=== PATIENT | male | born 1960 | race Caucasian/White ===

== ENCOUNTER 2017-07-05 08:50 | Emergency (ER) | payer BC, SELFPAY ==
[2017-07-05 08:52] VITALS: BP 130/74; PULSE 75; RESP 26; TEMP 37.3; O2SAT 93; BMI 25.8
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
[2017-07-05 10:20] VITALS: BP 128/84; PULSE 75; RESP 18; TEMP 36.9; O2SAT 96
== END 2017-07-05 10:29 | disposition home or self-care (01) ==
PROVIDERS: Emergency Provider Emergency Medicine; Family Provider Internal Medicine
DX: J01.00 Acute maxillary sinusitis, unspecified (principal); F17.210 Nicotine dependence, cigarettes, uncomplicated
CPT/HCPCS: 87275; 87276; 99282

== ENCOUNTER → 2017-08-17 10:08 | Outpatient (CLI) | payer BC, SELFPAY ==
[2017-08-17 10:45] LABS: Basophils # 0.1 K/mm3 (0-0.2); Basophils % 0.6 % (0.1-2.0); Eosinophils # 0.5 K/mm3 (0.0-0.4); Eosinophils % 4.4 % (0.1-12.0); Hematocrit 45.4 % (42.0-52.0); Hemoglobin 15.1 g/dL (14.1-18.0); Lymphocytes # 4.1 K/mm3 (0.7-4.5); Lymphocytes % 33.3 K/mm3 (10-50); Mean Corpuscular HGB Conc 33.4 g/dL (31.8-35.4); Mean Corpuscular Hemoglobin 30.9 pg (27.0-31.2); Mean Corpuscular Volume 92.5 fl (80-94); Mean Platelet Volume 8.1 fl (7.4-10.4); Monocytes # 0.5 K/mm3 (0.1-1.0); Monocytes % 4.4 % (1.7-9.3); Neutrophils % 57.2 % (37.0-80.0); Platelet Count 373 K/mm3 (142-424); White Blood Count 12.3 K/mm3 (4.8-10.8)
[2017-08-17 11:49] LABS: Alanine Aminotransferase 50 U/L (12-78); Albumin Level 3.7 gm/dL (3.4-5.0); Alkaline Phosphatase 99 U/L (46-116); Anion Gap 9.6 mEq/L (5-15); Aspartate Amino Transferase 30 U/L (15-37); Bilirubin,Total 0.2 mg/dL (0.2-1.0); Blood Urea Nitrogen 12 mg/dL (7-18); Carbon Dioxide 31 mmol/L (21.0-32.0); Chloride 104 mmol/L (98-107); Chol/HDL Ratio 5.7 (1-3.5); Cholesterol 206 mg/dL (140-200); Creatinine,Serum 0.82 mg/dL (0.70-1.30); Estimated Glomerular Filt Rate 98 ml/min (>60); GFR (African American) 118 ML/MIN (>60); Globulin 3.7 gm/dl (1.3-3.2); Glucose 110 mg/dL (74-106); HDL Cholesterol 36 mg/dL (27-67); LDL Cholesterol 129 mg/dL (0-130); Potassium 4.6 mmoL/L (3.5-5.1); Sodium 140 mmol/L (136-145); T4 (Thyroxine) 6.6 ug/dl (4.7-13.3); Thyroid Stimulating Hormone 4.01 uIU/ml (0.358-3.740); Total Protein,Serum 7.4 gm/dL (6.4-8.2); Triglycerides 203 mg/dL (30-200); VLDL Cholesterol 41 mg/dL (0-40)
[2017-08-18 08:22] LABS: Hep A Ab, IgM Negative (Negative); Hepatitis B Core Antibody IgM Negative (Negative); Hepatitis B Surface Antigen Negative (Negative)
[2017-08-18 19:07] LABS: HIV Screen 4th Generation wRfx Non Reactive (Non Reactive); Hepatitis C Antibody <0.1 s/co ratio (0.0-0.9); Vitamin D 25 Hydroxy 22.6 ng/mL (30.0-100.0)
== END ==
PROVIDERS: PCP Nurse Practitioner Family; Visit Provider Nurse Practitioner Family
DX: Z76.89 Persons encountering health services in other specified circumstances (principal); R53.83 Other fatigue; R07.9 Chest pain, unspecified
CPT/HCPCS: 36415; 80053; 80061; 80074; 82652; 84436; 84443; 85025; 86703; G0432

== ENCOUNTER → 2017-08-27 12:49 | Outpatient (CLI) | payer BC, SELFPAY ==
--- NOTE | 2017-08-27 12:53 | XR_ITS ---
XR chest 2V HISTORY: ITS.REASON: tobacco use ORDERING PHYSICIAN: Haritha Almazan PATIENT AGE: 56 years COMPARISON: 2 07 18 FINDINGS: The cardiomediastinal silhouette and pulmonary vascularity are within normal limits. There is hyperinflation with hyperlucency of the upper lobes consistent with obstructive chronic bronchitis. There is mild biapical fibrotic change The lungs are clear without infiltrates, suspicious nodules, or pleural effusions. No acute bony abnormalities. IMPRESSION: COPD, no change with no acute finding
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
--- NOTE | 2017-08-27 14:06 | HMH.SLMBS2 ---
Speech & Language Evaluation Speech/Language Mod Barium Swallow Start: 08/27/17 13:42 Freq: once Status: Complete Protocol: Document 08/27/17 13:42 BRIGHT (Rec: 08/27/17 14:06 BRIGHT [id number]) [facility] Recommendations Diet Dietary Recommendations Regular Thin Liquids Treatment/Strategies Treatment Recommendation Compens. Strategy Educat. Strategy/Precaution Recommend Sitting Upright (90 deg) Liquids from Straw Small Bites and Sips Alternate Liquids/Solids Mod Barium Swallow Impressions Summary and Impressions Oral Phase Impression Mild Impairment Oral Phase Summary Patient has difficulty chewing food due to absence of maxilla. Patient compensates well for missing bone structure. Patient was advised to take smaller bites and alternate with liquid wash. Pharyngeal Phase Impression No Impairment (WFL) Pharyngeal Phase Summary No pharyngeal impairments noted. Speech/Language MBS Assessment/Goals/Plan Assessment Date of Evaluation: 08/27/17 Evaluation Type Initial Certification Assessment/Problems Patient reports difficulty drinking soda that began 3-4 years ago but became worse last month after a diagnosis of flu. Does Patient Qualify for Service No Qualify/Failure Comment Patient difficulties are structural at this time. No signs of dysphagia were noted during evaluation. Plan Pt/Guardian verbally ack understanding Yes of dx/prognosis/goals G -code Required No Education Instructions provided Patient was advised to avoid carbonated beverages for 2 weeks to see if improvement is noted. Patient was advised to take small bites and alternate between a bite and sip. Pt/Caregiver able to recall information Able to recall/restate Mod Barium Swallow-Lat View Textures Lateral View Food Presentation Thin Liquid via Cup Thin Liquid via Straw Barium Tablet Regular Food Pudding Mixed Oral Phase Labial Closure No Impairment (WFL)
== END ==
PROVIDERS: PCP Nurse Practitioner Family; Visit Provider Nurse Practitioner Family
DX: E78.5 Hyperlipidemia, unspecified (principal); E03.9 Hypothyroidism, unspecified; J32.9 Chronic sinusitis, unspecified; R07.9 Chest pain, unspecified; E55.9 Vitamin D deficiency, unspecified; R06.00 Dyspnea, unspecified; Z72.0 Tobacco use; R13.10 Dysphagia, unspecified
CPT/HCPCS: 70371; 71046; 92611

== ENCOUNTER → 2017-09-03 06:47 | Outpatient (CLI) | payer BC, SELFPAY ==
--- NOTE | 2017-09-03 06:52 | NM_ITS ---
CARDIOLITE SPECT MYOCARDIAL PERFUSION SCAN, REST AND STRESS: EXERCISE STRESS [facility] REVIEW QGS EF AND WALL MOTION EVALUATION: QPS - PERFUSION EVALUATION HISTORY: Chest pain, Tobacco use DOSE: 10.58 mCi technetium 99m mibi intravenously at rest followed by 31.3 mCi technetium 99m mibi following the intravenous ministration of 0.4 mg of Lexiscan. Resting blood pressure is 131/80. Stress blood pressure 132/82. FINDINGS: Ejection fraction is calculated to be 49%. Uniform myocardial activity with both stress and rest gated images calculated ejection fraction of 49% with normal wall motion IMPRESSION: No scintigraphic evidence of Lexiscan-induced myocardial ischemia. Normal ejection fraction normal wall motion
--- NOTE | 2017-09-03 06:55 | CA_ITS ---
PROCEDURE: 2-D M-mode and color Doppler study INDICATIONS FOR THE TEST: Chest pain X COPD Heart Murmur Tobacco SmokingX Palpitations Fatigue Syncope Edema HypertensionXDiabetes Mellitus Rheumatic Fever SOBXDOE Obesity HyperlipidemiaX Family History HD Additional History PATIENT INFORMATION HEIGHT: 67 WEIGHT:165 GENDER: Male B/P:135/80 2-D/M-MODE INTERPRETATION: 2-D MEASUREMENTS OBSERVED VALUES IN CMS Right Ventricular Dimension (RVDd) 1.6 Interventricular Septum (Thickness)(IVsd) .7 Left Ventricular Internal Dimensions(LVIDd) 5.2 Left Ventricular Posterior Wall (Thickness)(LVPWd) 1.0 Aortic Root 2.9 Aortic Cusp Separation 1.6 Left Atrial Dimensions (LAD) 3.0 2D 1. Left atrium is normal size, left ventricle is normal size, there is mild qualitative concentric left ventricular hypertrophy, visually estimated ejection fraction 50% with no obvious regional wall motion abnormality. 2. The right atrium and right ventricle are mildly enlarged with normal contractility. 3. The aortic valve is minimally thickened and fibrosed. 4. The mitral and tricuspid valve leaflets are minimally thickened. 5. The pulmonic valve is poorly visualized. 6. No significant pericardial effusion noted. DOPPLER INTERROGATION: Doppler interrogation of the aortic, mitral and tricuspid valvular presence of mild mitral and tricuspid regurgitation, tricuspid and jet velocity insufficient for calculation of the right ventricular systolic pressure, diastolic parameters are inconclusive. CONCLUSION: 1. Normal left ventricular size, preserved left ventricular systolic function, visually estimated ejection fraction 50% with no obvious regional wall motion abnormality. Diastolic parameters are inconclusive. 2. Mild mitral and tricuspid regurgitation 3. No significant pericardial effusion noted.
--- NOTE | 2017-09-03 09:18 | HMH.ITSHM ---
FLEXERIL VITAMIN D OMEPRAZOLE
== END ==
PROVIDERS: Family Provider Internal Medicine; PCP Nurse Practitioner Family; Visit Provider Internal Medicine
DX: E78.5 Hyperlipidemia, unspecified (principal); R07.9 Chest pain, unspecified; R06.00 Dyspnea, unspecified; E03.9 Hypothyroidism, unspecified; J32.9 Chronic sinusitis, unspecified; E55.9 Vitamin D deficiency, unspecified; F17.200 Nicotine dependence, unspecified, uncomplicated
CPT/HCPCS: 78452; 93017; 93306; A9502; J2785

== ENCOUNTER → 2017-09-28 11:52 | Outpatient (CLI) | payer BC, SELFPAY | PROVIDERS: PCP Nurse Practitioner Family; Visit Provider Internal Medicine Cardiovascular Disease | DX: R07.9 Chest pain, unspecified (principal); R06.09 Other forms of dyspnea; Z72.0 Tobacco use | CPT/HCPCS: 93225 ==

== ENCOUNTER → 2017-10-12 09:05 | Outpatient (CLI) | payer BC, SELFPAY ==
--- NOTE | 2017-10-12 09:04 | CT_ITS ---
CT chest wo con COMPARISON: None HISTORY: Right-sided chest wall pain, some shortness of breath TECHNIQUE: Multiaxial scans obtained from the thoracic inlet to the hemidiaphragms and were performed without IV contrast. Sagittal and coronal reformats were evaluated as well. FINDINGS: The lung fernando are well expanded. There is apical pleural and parenchymal scarring bilaterally but more prominent right side the left. There are few apical blebs right side. There is a questionable noncalcified nodule right apex versus scarring associated with the blebs. The nodule measures approximately 9 mm in diameter. There are couple normal-sized nodes in the precarinal space of the superior mediastinum and in the AP window. Is a small calcified subcarinal node. There is no pneumonic infiltrate and is no pleural fluid. The soft tissues in the right chest wall appear normal. IMPRESSION: 1. Apical pleural-parenchymal scarring right side greater than left. Possible noncalcified nodule versus post inflammatory scar right apex and suggest patient have a six-month follow-up CT scan chest to evaluate for interval stability 2. Evidence of old granulomatous disease
== END ==
PROVIDERS: Family Provider Internal Medicine; PCP Nurse Practitioner Family; Visit Provider Internal Medicine
DX: R06.00 Dyspnea, unspecified (principal); R07.9 Chest pain, unspecified; F17.200 Nicotine dependence, unspecified, uncomplicated; F10.20 Alcohol dependence, uncomplicated; E78.5 Hyperlipidemia, unspecified; E55.9 Vitamin D deficiency, unspecified; E03.9 Hypothyroidism, unspecified; J32.9 Chronic sinusitis, unspecified
CPT/HCPCS: 71250

== ENCOUNTER → 2017-12-17 14:29 | Outpatient (POV) | payer BC, MEDICAID, SELFPAY ==
[2017-12-17 14:46] VITALS: BP 139/94; PULSE 74; RESP 18; O2SAT 98
--- NOTE | 2017-12-18 09:04 | HMH.PMCON ---
Assessment and Plan (1) Back pain Current visit: Yes Status: Chronic Qualifiers: Chronicity: chronic Back pain laterality: midline Sciatica presence: with sciatica Sciatica laterality: bilateral sciatica Qualified Code(s): M54.41 - Lumbago with sciatica, right side; M54.42 - Lumbago with sciatica, left side; G89.29 - Other chronic pain Category: Medical Code(s): M54.9 - Dorsalgia, unspecified - Assessment and plan all Dx Assessment and Plan for all problems:: We will send the patient for CT scan of his lumbar spine. Patient is unable to have MRIs. Patient does not have any recent lumbar imaging. We will follow-up him after his CT, review it and create a plan of care. This note was dictated using voice recognition software and may contain errors or omissions HPI - Data of Consult Consult date: 12/17/17 Requesting Physician: Genevieve Villagran APRN Primary Care Provider: Haritha Almazan APRN Family Provider: Britton Jones - Consult Narrative Reason for consult: Worsening back pain History of present illness: Mr. Carter is a 57 year old male presents for consultation in regards to his worsening back pain. Patient had a window follow-up him back in 2013. Patient states in getting worse and worse since then. Patient now has numbness and tingling in bilateral feet all the way to his toes. Patient's tried and failed chiropractic therapy along with physical therapy. Patient has had one intramuscular steroid injection that did help at some point however it did not last long. Patient does not have any imaging of his back. Patient is unable to have an MRI. Patient rates his pain 7 out of 10. Patient states all activity except worse while rest and heat decrease the pain. CC: Genevieve Villagran APRN [facility] History I have reviewed the patient's past medical history: Yes Medical History: Reports:: Gastroesophageal Reflux Disease(GERD) Other Surgeries: Yes: Other Amputation: No Fractures: No - *Social History Smoking Status: Current every day smoker Tobacco Type: cigarettes # Packs/Day (cigarettes): 1 #Yrs smoked (if former smoker): 40 Alcohol Intake: never Alcohol Intake Frequency:: 0-2 drinks per day Substance Use Type: denies use Occupational Status: disabled Housing: house - Psychiatric History Expresses thoughts of harming self/others: None Suicide Plan Description: No Plan *Family Hx:: Hypertension, Diabetes Review of Systems - Review of Systems ROS General: no recent weight change, no fever, no sleep disturbances Respiratory: no cough, no shortness of air, no recurring pulmonary infections Cardiovascular/Peripheral Vascular: No chest pain, No palpitations, no edema, no shortness of breath. Gastrointestinal: no incontinence, normal bowel movements reported Genitourinary: no incontinence Musculoskeletal: Back pain, bilateral leg pain Psychiatric: normal mood/ affect Neurological: [denies weakness in extremities], [denies balance issues] Meds Home Medications Medication Instructions Recorded Confirmed Type cholecalciferol (vitamin D3) 1,000 1,000 unit PO DAILY cap 09/13/17 History unit capsule ergocalciferol (vitamin D2) 50,000 50,000 unit PO QWEEK 09/13/17 History unit capsule Allergies Allergy/AdvReac Type Severity Reaction Status Date / Time NSAIDS (Non-Steroidal Allergy Mild Verified 11/28/17 11:08 Anti-Inflamma [NSAIDS (NON-STEROIDAL ANTI-INFLAMMA] Objective Vital signs: Pulse Resp BP Pulse Ox 74 18 139/94 98 12/17/17 14:46 12/17/17 14:46 12/17/17 14:46 12/17/17 14:46 Narrative: Physical Exam General: Alert and oriented x3, no acute distress, pleasant and cooperative, [on room air] Lungs: Resps E/U, Symmetrical chest expansion, Eyes: PERRL Musculoskeletal: Flexion and extension of lumbar spine somewhat guarded secondary to pain, deep tendon reflexes normal, strength in upper and lowe
--- NOTE | 2017-12-18 09:07 | P.CONS_ITS ---
Assessment and Plan (1) Back pain Current visit: Yes Status: Chronic Qualifiers: Chronicity: chronic Back pain laterality: midline Sciatica presence: with sciatica Sciatica laterality: bilateral sciatica Qualified Code(s): M54.41 - Lumbago with sciatica, right side; M54.42 - Lumbago with sciatica, left side; G89.29 - Other chronic pain Category: Medical Code(s): M54.9 - Dorsalgia, unspecified - Assessment and plan all Dx Assessment and Plan for all problems:: We will send the patient for CT scan of his lumbar spine. Patient is unable to have MRIs. Patient does not have any recent lumbar imaging. We will follow-up him after his CT, review it and create a plan of care. This note was dictated using voice recognition software and may contain errors or omissions HPI - Data of Consult Consult date: 12/17/17 Requesting Physician: Genevieve Villagran APRN Primary Care Provider: Haritha Almazan APRN Family Provider: Britton Jones - Consult Narrative Reason for consult: Worsening back pain History of present illness: Mr. Carter is a 57 year old male presents for consultation in regards to his worsening back pain. Patient had a window follow-up him back in 2013. Patient states in getting worse and worse since then. Patient now has numbness and tingling in bilateral feet all the way to his toes. Patient's tried and failed chiropractic therapy along with physical therapy. Patient has had one intramuscular steroid injection that did help at some point however it did not last long. Patient does not have any imaging of his back. Patient is unable to have an MRI. Patient rates his pain 7 out of 10. Patient states all activity except worse while rest and heat decrease the pain. CC: Genevieve Villagran APRN [facility] History I have reviewed the patient's past medical history: Yes Medical History: Reports:: Gastroesophageal Reflux Disease(GERD) Other Surgeries: Yes: Other Amputation: No Fractures: No - *Social History Smoking Status: Current every day smoker Tobacco Type: cigarettes # Packs/Day (cigarettes): 1 #Yrs smoked (if former smoker): 40 Alcohol Intake: never Alcohol Intake Frequency:: 0-2 drinks per day Substance Use Type: denies use Occupational Status: disabled Housing: house - Psychiatric History Expresses thoughts of harming self/others: None Suicide Plan Description: No Plan *Family Hx:: Hypertension, Diabetes Review of Systems - Review of Systems ROS General: no recent weight change, no fever, no sleep disturbances Respiratory: no cough, no shortness of air, no recurring pulmonary infections Cardiovascular/Peripheral Vascular: No chest pain, No palpitations, no edema, no shortness of breath. Gastrointestinal: no incontinence, normal bowel movements reported Genitourinary: no incontinence Musculoskeletal: Back pain, bilateral leg pain Psychiatric: normal mood/ affect Neurological: [denies weakness in extremities], [denies balance issues] Meds Home Medications Medication Instructions Recorded Confirmed Type cholecalciferol (vitamin D3) 1,000 1,000 unit PO DAILY cap 09/13/17 History unit capsule ergocalciferol (vitamin D2) 50,000 50,000 unit PO QWEEK 09/13/17 History unit capsule Allergies Allergy/AdvReac Type Severity Reaction Status Date / Time NSAIDS (Non-Steroidal Allergy Mild Verified 11/28/17 11:08 Anti-Inflamma [NSAIDS (NON-STEROIDA
== END ==
PROVIDERS: Family Provider Internal Medicine; PCP Nurse Practitioner Family; Visit Provider Clinical Nurse Specialist Family Health
DX: M54.41 Lumbago with sciatica, right side (principal); M54.42 Lumbago with sciatica, left side
CPT/HCPCS: 99202

== ENCOUNTER → 2018-01-04 14:15 | Outpatient (CLI) | payer BC, SELFPAY ==
--- NOTE | 2018-01-04 14:17 | CT_ITS ---
CT lumbar spine wo con INDICATION: Low back pain ITS.REASON: BACK PAIN ORDERING PHYSICIAN: Genevieve Villagran PATIENT AGE: 57 years COMPARISON: 09/03/2009 TECHNIQUE: Axial images are obtained without contrast. Sagittal and coronal reformatted images are reviewed as well. All CT scans at the facility use one or more dose reduction, viz: automated exposure control; ma/kV adjustment per patient size (including targeted exams where dose is matched to indication; i.e. head); or iterative reconstruction technique. FINDINGS: There is normal alignment. No fracture, dislocation, lytic, or blastic change evident. No bony canal stenosis. The disc spaces are well-preserved. There is mild concentric bulging disc at L5-S1 with mild facet hypertrophic change and mild bilateral foraminal narrowing slightly greater on the left. IMPRESSION: Mild bulging disc at L5-S1 with mild bilateral foraminal narrowing slightly greater on the left otherwise negative CT lumbar spine
--- NOTE | 2018-01-04 14:20 | XR_ITS ---
EXAM: XR lumbar spine 6V w bending HISTORY: ITS.REASON: low back pain ORDERING PHYSICIAN: Genevieve Villagran PATIENT AGE: 57 years COMPARISON: None FINDINGS: There is straightening of lumbar lordosis. This is on could be seen with muscle spasm. There is disc spaces are well-preserved. No fracture or dislocation. No lytic or blastic change. There is slight decrease in height anteriorly of T12 this however is unchanged from 08/02/2016 Flexion and extension views are obtained showing no abnormal subluxation. IMPRESSION: 1. Straightening of lumbar lordosis may be due to patient positioning or muscle spasm. 2. No abnormal subluxation in flexion or extension
== END ==
PROVIDERS: Family Provider Internal Medicine; PCP Nurse Practitioner Family; Visit Provider Clinical Nurse Specialist Family Health
DX: M54.5 Low back pain (principal)
CPT/HCPCS: 72114; 72131

== ENCOUNTER → 2018-01-08 10:35 | Outpatient (POV) | payer BC, SELFPAY ==
[2018-01-08 10:41] VITALS: BP 149/95; PULSE 70; RESP 18; O2SAT 98; BMI 25.8
--- NOTE | 2018-01-08 11:36 | HMH.PAINSOAP ---
[facility] Pain Management SOAP Note Subjective:: Patient is a pleasant 57-year-old white male who presents today for follow-up of CT. Patient has had increased back pain and was seen by urgent treatment center yesterday. Patient was told to take his already prescribed Flexeril. Patient has had back pain since about 2013 he states. Patient's tried and failed chiropractic therapy along with physical therapy. Patient is unable to have an MRI. He rates his pain 8 out of [address] does show bulging disc at L5-S1. Patient does have pain radiating into his legs at times. We discussed epidural steroid injections. Patient is interested in this. ROS General: no recent weight change, no fever, no sleep disturbances Respiratory: no cough, no shortness of air, no recurring pulmonary infections Cardiovascular/Peripheral Vascular: No chest pain, No palpitations, no edema, no shortness of breath. Gastrointestinal: no incontinence, normal bowel movements reported Genitourinary: no incontinence Musculoskeletal: Back pain, leg pain Psychiatric: normal mood/ affect Neurological: [denies weakness in extremities], [denies balance issues] Objective:: Physical Exam General: Alert and oriented x3, no acute distress, pleasant and cooperative, [on room air] Lungs: Resps E/U, Symmetrical chest expansion, Eyes: PERRL Musculoskeletal: Flexion and extension of lumbar spine somewhat guarded secondary to pain, deep tendon reflexes normal, strength in upper and lower extremities [5/5], [abnormal gait noted] positive straight leg raise test bilaterally at 30? 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 Patient's tried and failed other conservative therapies including anti-inflammatories, medications, stretching therapy. Patient is continuing to be active and doing home stretching. Patient is not on any anticoagulation therapy I will follow-up with this patient after his injection we will reassess his symptoms at that time. This note was dictated using voice recognition software and may contain errors or omissions
--- NOTE | 2018-01-08 11:40 | P.CONS_ITS ---
[facility] Pain Management SOAP Note Subjective:: Patient is a pleasant 57-year-old white male who presents today for follow-up of CT. Patient has had increased back pain and was seen by urgent treatment center yesterday. Patient was told to take his already prescribed Flexeril. Patient has had back pain since about 2013 he states. Patient's tried and failed chiropractic therapy along with physical therapy. Patient is unable to have an MRI. He rates his pain 8 out of [address] does show bulging disc at L5-S1. Patient does have pain radiating into his legs at times. We discussed epidural steroid injections. Patient is interested in this. ROS General: no recent weight change, no fever, no sleep disturbances Respiratory: no cough, no shortness of air, no recurring pulmonary infections Cardiovascular/Peripheral Vascular: No chest pain, No palpitations, no edema, no shortness of breath. Gastrointestinal: no incontinence, normal bowel movements reported Genitourinary: no incontinence Musculoskeletal: Back pain, leg pain Psychiatric: normal mood/ affect Neurological: [denies weakness in extremities], [denies balance issues] Objective:: Physical Exam General: Alert and oriented x3, no acute distress, pleasant and cooperative, [ on room air] Lungs: Resps E/U, Symmetrical chest expansion, Eyes: PERRL Musculoskeletal: Flexion and extension of lumbar spine somewhat guarded secondary to pain, deep tendon reflexes normal, strength in upper and lower extremities [5/5], [abnormal gait noted] positive straight leg raise test bilaterally at 30? 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 Patient's tried and failed other conservative therapies including anti-inflammatories, medications, stretching therapy. Patient is continuing to be active and doing home stretching. Patient is not on any anticoagulation therapy I will follow- up with this patient after his injection we will reassess his symptoms at that time. This note was dictated using voice recognition software and may contain errors or omissions
== END ==
PROVIDERS: Family Provider Internal Medicine; PCP Nurse Practitioner Family; Visit Provider Clinical Nurse Specialist Family Health
DX: M51.16 Intervertebral disc disorders with radiculopathy, lumbar region (principal)
CPT/HCPCS: 99212

== ENCOUNTER → 2018-02-04 14:16 | Outpatient (POV) | payer BC, SELFPAY ==
[2018-02-04 14:28] VITALS: BP 128/95; PULSE 94; RESP 18; O2SAT 97; BMI 26.6
--- NOTE | 2018-02-04 14:49 | HMH.PAINSOAP ---
[facility] Pain Management SOAP Note Subjective:: Patient is a pleasant 57-year-old white male who presents today for follow-up after his most recent lumbar epidural steroid injection. Patient states that his back pain has resolved however he is having SI joint pain bilaterally. Patient rates his pain a 5 out of 10 today. Patient is unable to take anti-inflammatories due to stomach issues. Patient is having some blood pressure issues however he states that it is being managed by his PCP ROS General: no recent weight change, no fever, no sleep disturbances Respiratory: no cough, no shortness of air, no recurring pulmonary infections Cardiovascular/Peripheral Vascular: No chest pain, No palpitations, no edema, no shortness of breath. Gastrointestinal: no incontinence, normal bowel movements reported Genitourinary: no incontinence Musculoskeletal: Bilateral SI joint pain Psychiatric: normal mood/ affect Neurological: [denies weakness in extremities], [denies balance issues] Objective:: Physical Exam General: Alert and oriented x3, no acute distress, pleasant and cooperative, [on room air] Lungs: Resps E/U, Symmetrical chest expansion, Eyes: PERRL Musculoskeletal: Flexion and extension of lumbar spine somewhat guarded secondary to pain, deep tendon reflexes normal, strength in upper and lower extremities [5/5], slightly antalgic gait noted, bilateral SI joint tenderness, positive Janny's test bilaterally Neurological: speech clear, 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 Patient is not on any anti-coagulation therapy. Patient has tried and failed physical therapy along with medications. I will follow-up with the patient after his injection and reassess his symptoms at that time. This note was dictated using voice recognition software and may contain errors or omissions
--- NOTE | 2018-02-04 14:52 | P.CONS_ITS ---
[facility] Pain Management SOAP Note Subjective:: Patient is a pleasant 57-year-old white male who presents today for follow-up after his most recent lumbar epidural steroid injection. Patient states that his back pain has resolved however he is having SI joint pain bilaterally. Patient rates his pain a 5 out of 10 today. Patient is unable to take anti- inflammatories due to stomach issues. Patient is having some blood pressure issues however he states that it is being managed by his PCP ROS General: no recent weight change, no fever, no sleep disturbances Respiratory: no cough, no shortness of air, no recurring pulmonary infections Cardiovascular/Peripheral Vascular: No chest pain, No palpitations, no edema, no shortness of breath. Gastrointestinal: no incontinence, normal bowel movements reported Genitourinary: no incontinence Musculoskeletal: Bilateral SI joint pain Psychiatric: normal mood/ affect Neurological: [denies weakness in extremities], [denies balance issues] Objective:: Physical Exam General: Alert and oriented x3, no acute distress, pleasant and cooperative, [ on room air] Lungs: Resps E/U, Symmetrical chest expansion, Eyes: PERRL Musculoskeletal: Flexion and extension of lumbar spine somewhat guarded secondary to pain, deep tendon reflexes normal, strength in upper and lower extremities [5/5], slightly antalgic gait noted, bilateral SI joint tenderness, positive Janny's test bilaterally Neurological: speech clear, hand sizer equal, no gross sensory deficits Assessment:: Sacroiliitis, degenerative disc disease lumbar spine Plan:: We will schedule bilateral SI joint injections for the patient. Patient is not on any anti-coagulation therapy. Patient has tried and failed physical therapy along with medications. I will follow-up with the patient after his injection and reassess his symptoms at that time. This note was dictated using voice recognition software and may contain errors or omissions
== END ==
PROVIDERS: Family Provider Internal Medicine; PCP Nurse Practitioner Family; Visit Provider Clinical Nurse Specialist Family Health
DX: M46.1 Sacroiliitis, not elsewhere classified (principal)
CPT/HCPCS: 99212

== ENCOUNTER → 2018-03-11 12:28 | Outpatient (POV) | payer BC, SELFPAY ==
[2018-03-11 13:52] VITALS: BP 146/86; PULSE 65; RESP 18; O2SAT 98; BMI 25.8
--- NOTE | 2018-03-11 14:22 | HMH.PAINSOAP ---
[facility] Pain Management SOAP Note Subjective:: Patient is a 57-year-old white male who presents today for follow-up after bilateral SI joint injections. Patient was recently in the ER where he states that after his injections he felt like he was weak and like he was experiencing drug euphoria like he has in the past. Patient also stated he is drinking several rum and Cokes at night. Patient rates his pain a 5 out of 10 today. Patient is unable to take anti-inflammatories due to gastric issues. Patient states that he has had no relief with his injections. I believe the next step will be a surgical consultation. Patient is asking what he can do for the pain in the meantime. I discussed our limited choices are limited due to his inability to take anti-inflammatories. Patient has states he is tried gabapentin in the past and has no interest in retaking this. ROS General: no recent weight change, no fever, no sleep disturbances Respiratory: no cough, no shortness of air, no recurring pulmonary infections Cardiovascular/Peripheral Vascular: No chest pain, No palpitations, no edema, no shortness of breath. Gastrointestinal: no incontinence, normal bowel movements reported Genitourinary: no incontinence Musculoskeletal: Back pain Psychiatric: normal mood/ affect Neurological: [denies weakness in extremities], [denies balance issues] Objective:: Physical Exam General: Alert and oriented x3, no acute distress, pleasant and cooperative, [on room air] Lungs: Resps E/U, Symmetrical chest expansion, Eyes: PERRL Musculoskeletal: Flexion and extension of lumbar spine somewhat guarded secondary to pain, deep tendon reflexes normal, strength in upper and lower extremities [5/5], [abnormal gait noted] Neurological: speech clear, 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 Nevarez for consultation. I will follow-up with the patient after this. This note was dictated using voice recognition software and may contain errors or omissions
--- NOTE | 2018-03-11 14:25 | P.CONS_ITS ---
[facility] Pain Management SOAP Note Subjective:: Patient is a 57-year-old white male who presents today for follow-up after bilateral SI joint injections. Patient was recently in the ER where he states that after his injections he felt like he was weak and like he was experiencing drug euphoria like he has in the past. Patient also stated he is drinking several rum and Cokes at night. Patient rates his pain a 5 out of 10 today. Patient is unable to take anti-inflammatories due to gastric issues. Patient states that he has had no relief with his injections. I believe the next step will be a surgical consultation. Patient is asking what he can do for the pain in the meantime. I discussed our limited choices are limited due to his inabi lity to take anti-inflammatories. Patient has states he is tried gabapentin in the past and has no interest in retaking this. ROS General: no recent weight change, no fever, no sleep disturbances Respiratory: no cough, no shortness of air, no recurring pulmonary infections Cardiovascular/Peripheral Vascular: No chest pain, No palpitations, no edema, no shortness of breath. Gastrointestinal: no incontinence, normal bowel movements reported Genitourinary: no incontinence Musculoskeletal: Back pain Psychiatric: normal mood/ affect Neurological: [denies weakness in extremities], [denies balance issues] Objective:: Physical Exam General: Alert and oriented x3, no acute distress, pleasant and cooperative, [on room air] Lungs: Resps E/U, Symmetrical chest expansion, Eyes: PERRL Musculoskeletal: Flexion and extension of lumbar spine somewhat guarded secondary to pain, deep tendon reflexes normal, strength in upper and lower extremities [5/5], [abnormal gait noted] Neurological: 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 Nevarez for consultation. I will follow-up with the patient after this. This note was dictated using voice recognition software and may contain errors or omissions
== END ==
PROVIDERS: Family Provider Internal Medicine; PCP Nurse Practitioner Family; Visit Provider Clinical Nurse Specialist Family Health
DX: M51.16 Intervertebral disc disorders with radiculopathy, lumbar region (principal); M46.1 Sacroiliitis, not elsewhere classified
CPT/HCPCS: 99213

== ENCOUNTER → 2018-07-01 14:18 | Outpatient (POV) | payer BC, SELFPAY ==
[2018-07-01 14:43] VITALS: BP 162/98; PULSE 69; RESP 18; O2SAT 98; BMI 25.8
--- NOTE | 2018-07-01 14:58 | HMH.PAINSOAP ---
[facility] Pain Management SOAP Note Subjective:: Patient is a pleasant 57-year-old white male who presents today for follow-up. Patient was seen by Dr. Nevarez where he states Dr. Nevarez told him to do physical therapy. Patient states he is not going to do that. Patient states he still having pain in his legs. He rates his pain a 6 out of 10 today. Patient is unable to take gabapentin. He is unable to take anti-inflammatories due to gastric issues patient states that he has had no relief from injections. Most of his pain is in his back and bilateral legs. ROS General: no recent weight change, no fever, no sleep disturbances Respiratory: no cough, no shortness of air, no recurring pulmonary infections Cardiovascular/Peripheral Vascular: No chest pain, No palpitations, no edema, no shortness of breath. Gastrointestinal: no incontinence, normal bowel movements reported Genitourinary: no incontinence Musculoskeletal: Back pain, leg pain Psychiatric: normal mood/ affect Neurological: [denies weakness in extremities], [denies balance issues] Objective:: Physical Exam General: Alert and oriented x3, no acute distress, pleasant and cooperative, [on room air] Lungs: Resps E/U, Symmetrical chest expansion, Eyes: PERRL Musculoskeletal: Flexion and extension of lumbar spine somewhat guarded secondary to pain, deep tendon reflexes normal, strength in upper and lower extremities [5/5], [abnormal gait noted] Neurological: speech clear, 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 nightly. I will follow-up with him in 1 month to see if this is beneficial. This note was dictated using voice recognition software and may contain errors or omissions
--- NOTE | 2018-07-01 15:01 | P.CONS_ITS ---
[facility] Pain Management SOAP Note Subjective:: Patient is a pleasant 57-year-old white male who presents today for follow-up. Patient was seen by Dr. Nevarez where he states Dr. Nevarez told him to do physical therapy. Patient states he is not going to do that. Patient states he still having pain in his legs. He rates his pain a 6 out of 10 today. Patient is unable to take gabapentin. He is unable to take anti-inflammatories due to gastric issues patient states that he has had no relief from injections. Most of his pain is in his back and bilateral legs. ROS General: no recent weight change, no fever, no sleep disturbances Respiratory: no cough, no shortness of air, no recurring pulmonary infections Cardiovascular/Peripheral Vascular: No chest pain, No palpitations, no edema, no shortness of breath. Gastrointestinal: no incontinence, normal bowel movements reported Genitourinary: no incontinence Musculoskeletal: Back pain, leg pain Psychiatric: normal mood/ affect Neurological: [denies weakness in extremities], [denies balance issues] Objective:: Physical Exam General: Alert and oriented x3, no acute distress, pleasant and cooperative, [on room air] Lungs: Resps E/U, Symmetrical chest expansion, Eyes: PERRL Musculoskeletal: Flexion and extension of lumbar spine somewhat guarded sec ondary to pain, deep tendon reflexes normal, strength in upper and lower extremities [5/5], [abnormal gait noted] Neurological: speech clear, 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 nightly. I will follow-up with him in 1 month to see if this is beneficial. This note was dictated using voice recognition software and may contain errors or omissions
--- NOTE | 2018-07-03 10:03 | PC.PHONENOTE ---
Pt contacted office today regarding the medication ametriptoline. Pt stated there were too many side effects to the medication, he stated he did not want to take the medication because of the side effects. Pt stated he was going to try the CBD oil Genevieve recommended instead.
== END ==
PROVIDERS: PCP Nurse Practitioner Family; Visit Provider Clinical Nurse Specialist Family Health
DX: M51.16 Intervertebral disc disorders with radiculopathy, lumbar region (principal)
CPT/HCPCS: 99213

== ENCOUNTER → 2018-07-29 13:27 | Outpatient (POV) | payer BC, SELFPAY ==
[2018-07-29 13:58] VITALS: BP 131/87; PULSE 64; RESP 18; O2SAT 98; BMI 25.0
--- NOTE | 2018-07-29 14:10 | HMH.PAINSOAP ---
[facility] Pain Management SOAP Note Subjective:: Patient is a 57-year-old white male who presents today for follow-up. Patient was seen at his last visit and given Elavil. Patient states that he did not take it after he read the side effects to it. Patient does not have any interest in any intense moving forward. He states he cannot afford CBD oil. We have kind of exhausted all options at this with the patient. He is able to take NSAIDs just upset. Patient rates his pain a 5 out of 10 today. ROS General: no recent weight change, no fever, no sleep disturbances Respiratory: no cough, no shortness of air, no recurring pulmonary infections Cardiovascular/Peripheral Vascular: No chest pain, No palpitations, no edema, no shortness of breath. Gastrointestinal: no incontinence, normal bowel movements reported Genitourinary: no incontinence Musculoskeletal: Back pain, leg pain Psychiatric: normal mood/ affect Neurological: [denies weakness in extremities], [denies balance issues] Objective:: Physical Exam General: Alert and oriented x3, no acute distress, pleasant and cooperative, [on room air] Lungs: Resps E/U, Symmetrical chest expansion, Eyes: PERRL Musculoskeletal: Flexion and extension of lumbar spine somewhat guarded secondary to pain, deep tendon reflexes normal, strength in upper and lower extremities [5/5], [abnormal gait noted] Neurological: 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 Patient does not want to take amitriptyline or gabapentin anything with the list of side effects. Patient was recommended by Dr. Nevarez to have physical therapy which he states I will be doing that . We have come to a state in which we cannot move forward with any plan of care and is in a call us if he needs us. Dr. Moreno has reviewed this note and agrees with this plan of care. This note was dictated using voice recognition software and may contain errors or omissions
== END ==
PROVIDERS: PCP Nurse Practitioner Family; Visit Provider Clinical Nurse Specialist Family Health
DX: M51.16 Intervertebral disc disorders with radiculopathy, lumbar region (principal)
CPT/HCPCS: 99213

== ENCOUNTER → 2018-11-21 11:47 | Outpatient (CLI) | payer BC, SELFPAY ==
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
[2018-11-21 12:27] LABS: Basophils # 0.1 K/mm3 (0-0.2); Basophils % 0.9 % (0.1-2.0); Eosinophils # 0.5 K/mm3 (0.0-0.4); Eosinophils % 4.9 % (0.1-12.0); Hemoglobin 14.7 g/dL (14.1-18.0); Lymphocytes # 4.4 K/mm3 (0.7-4.5); Lymphocytes % 46.6 % (10-50); Mean Corpuscular Hemoglobin 32.1 pg (27.0-31.2); Mean Corpuscular Volume 91.7 fl (80-94); Mean Platelet Volume 7.4 fl (7.4-10.4); Monocytes # 0.4 K/mm3 (0.1-1.0); Monocytes % 4.2 % (1.7-9.3); Neutrophils # 4.1 K/mm3 (1.8-7.8); Neutrophils % 43.5 % (37.0-80.0); Platelet Count 277 K/mm3 (142-424); Red Blood Count 4.58 M/mm3 (4.60-6.20); Red Cell Distribution Width 13.1 % (11.5-17.5); White Blood Count 9.5 K/mm3 (4.8-10.8)
[2018-11-21 13:22] LABS: Alanine Aminotransferase 39 U/L (12-78); Albumin Level 3.5 gm/dL (3.4-5.0); Alkaline Phosphatase 104 U/L (46-116); Anion Gap 13.3 mEq/L (5-15); Aspartate Amino Transferase 24 U/L (15-37); Bilirubin,Total 0.4 mg/dL (0.2-1.0); Blood Urea Nitrogen 10 mg/dL (7-18); Calcium 8.7 mg/dL (8.5-10.1); Carbon Dioxide 26 mmol/L (21.0-32.0); Chloride 103 mmol/L (98-107); Chol/HDL Ratio 7.2 (1-3.5); Cholesterol 230 mg/dL (140-200); Creatinine,Serum 0.87 mg/dL (0.70-1.30); Estimated Glomerular Filt Rate 90 ml/min (>60); GFR (African American) 109 ML/MIN (>60); Globulin 3.5 gm/dl (1.3-3.2); Glucose 107 mg/dL (74-106); HDL Cholesterol 32 mg/dL (27-67); LDL Cholesterol 142 mg/dL (0-130); Potassium 4.3 mmoL/L (3.5-5.1); Sodium 138 mmol/L (136-145); T4 (Thyroxine) 5.3 ug/dl (4.7-13.3); Thyroid Stimulating Hormone 3.23 uIU/ml (0.358-3.740); Triglycerides 278 mg/dL (30-200); VLDL Cholesterol 56 mg/dL (0-40)
[2018-11-22 13:20] LABS: Vitamin D 25 Hydroxy 24.1 ng/mL (30.0-100.0)
== END ==
PROVIDERS: PCP Nurse Practitioner Family; Visit Provider Nurse Practitioner Family
DX: R20.0 Anesthesia of skin (principal); R20.2 Paresthesia of skin
CPT/HCPCS: 72050; 80053; 80061; 82652; 84436; 84443; 85025

== ENCOUNTER → 2018-12-04 18:44 | Outpatient (CLI) | payer BC, SELFPAY ==
[2018-12-04 19:28] LABS: Hemoglobin A1C 5.7 % (0.0-7.0)
[2018-12-04 19:39] LABS: Magnesium 2.2 mg/dL (1.4-2.2)
== END ==
PROVIDERS: Visit Provider Nurse Practitioner Family
DX: E61.2 Magnesium deficiency (principal); R73.09 Other abnormal glucose
CPT/HCPCS: 83036; 83735

== ENCOUNTER → 2019-03-12 14:23 | Outpatient (CLI) | payer BC, SELFPAY ==
[2019-03-12 15:41] LABS: Amphetamine/Metha Screen,Urine Negative ng/mL (<1000); Barbiturates Screen,Urine Negative ng/mL (<200); Benzodiazepines Screen,Urine Negative ng/mL (<200); Cannabinoid Screen,Urine Negative ng/mL (<50); Cocaine Screen,Urine Negative ng/mL (<300); Methadone Screen,Urine Negative ng/mL (<300); Opiate Screen,Urine Negative ng/mL (<300); Phencyclidine Screen,Urine Negative ng/mL (<25)
== END ==
PROVIDERS: Visit Provider Nurse Practitioner Family
DX: M79.605 Pain in left leg (principal); M79.604 Pain in right leg
CPT/HCPCS: 80305

== ENCOUNTER → 2019-04-14 10:55 | Outpatient (POV) | payer BC, SELFPAY | PROVIDERS: Visit Provider Specialist | DX: G62.9 Polyneuropathy, unspecified (principal); M79.604 Pain in right leg; M79.605 Pain in left leg | CPT/HCPCS: 95886; 95909 ==

== ENCOUNTER → 2019-05-23 12:40 | Outpatient (CLI) | payer BC, SELFPAY ==
--- NOTE | 2019-05-23 12:41 | US_ITS ---
APPROVED REPORT Exam Type: Lower Extremity Segmental Pressures Metalizing Supervisor: Marcia Mas RVT Indications Claudication: Bilaterally Rest Pain: Bilaterally Current Smoker Risk Factors Current Smoker Pressures/Indices Right Indices Left Indices Brachial 149.00 mmHg Brachial 143.00 mmHg Low Thigh 108.00 mmHg 0.72 Low Thigh 143.00 mmHg 0.96 Calf 97.00 mmHg 0.65 Calf 132.00 mmHg 0.89 Ankle(PT) 114.00 mmHg 0.77 Ankle(PT) 129.00 mmHg 0.87 Ankle(DP) 97.00 mmHg 0.65 Ankle(DP) 137.00 mmHg 0.92 Digit 70.00 mmHg 0.47 Digit 95.00 mmHg 0.64 Findings RT LAURA:0.77 LT LAURA:0.87 RT TBI:0.47 LT TBI:0.64 NORMAL PULSES BILATERAL DECREASED WAVEFORMS RT ANKLE Conclusion RT LAURA:0.77 LT LAURA:0.87 RT TBI:0.47 LT TBI:0.64 NORMAL PULSES BILATERAL DECREASED WAVEFORMS RT ANKLE Low Right LAURA suggesting moderate arterial disease with possible stenosis at iliac or femoral area. CTA may confirm. Mild left arterial disease Electronically signed by : Thomas Will MD 05/23/2019 17:28:03
== END ==
PROVIDERS: PCP Nurse Practitioner Family; Visit Provider Nurse Practitioner Family
DX: M79.604 Pain in right leg; M79.605 Pain in left leg; I70.213 Atherosclerosis of native arteries of extremities with intermittent claudication, bilateral legs
CPT/HCPCS: 93923

== ENCOUNTER 2019-08-19 09:09 | Outpatient (CLI) | payer BC, SELFPAY ==
[2019-08-19 09:16] VITALS: BMI 27.1
[2019-08-19 09:25] VITALS: BP 128/69; PULSE 67; RESP 20; TEMP 36.9; O2SAT 98
[2019-08-19 09:41] LABS: Basophils # 0.2 K/mm3 (0-0.2); Basophils % 0.9 % (0.1-2.0); Eosinophils % 0.3 % (0.1-12.0); Hemoglobin 15.4 g/dL (14.1-18.0); Lymphocytes % 36.1 % (10-50); Mean Corpuscular HGB Conc 34.1 g/dL (31.8-35.4); Mean Corpuscular Hemoglobin 31.2 pg (27.0-31.2); Mean Corpuscular Volume 91.5 fl (80-94); Neutrophils # 9.5 K/mm3 (1.8-7.8); Neutrophils % 56.8 % (37.0-80.0); Platelet Count 330 K/mm3 (142-424); Red Blood Count 4.92 M/mm3 (4.60-6.20); Red Cell Distribution Width 13.7 % (11.5-17.5); White Blood Count 16.7 K/mm3 (4.8-10.8)
[2019-08-19 09:51] LABS: Alanine Aminotransferase 97 U/L (21-72); Albumin Level 3.5 g/dL (3.4-5.0); Albumin/Globulin Ratio 0.8 (1.1-1.8); Alkaline Phosphatase 98 U/L (46-116); Anion Gap 15.7 mEq/L (5-15); Aspartate Amino Transferase 49 U/L (15-37); Bilirubin,Total 0.4 mg/dL (0.2-1.0); Blood Urea Nitrogen 13 mg/dL (7-18); Calcium 8.5 mg/dL (8.5-10.1); Carbon Dioxide 24 mmol/L (21.0-32.0); Chloride 99 mmol/L (98-107); Creatinine Clearance Estimated 90 mL/min (50-200); Creatinine,Serum 1.01 mg/dL (0.70-1.30); Estimated Glomerular Filt Rate 76 ml/min (>60); GFR (African American) 92 ML/MIN (>60); Globulin 4.6 g/dL (1.3-3.2); Glucose 108 mg/dL (74-106); Potassium 3.7 mmoL/L (3.5-5.1); Sodium 135 mmol/L (137-145); Total Protein,Serum 8.1 g/dL (6.4-8.2)
[2019-08-19 09:53] LABS: MANUAL DIFFERENTIAL MANUAL DIFFERENTIAL (MANUAL DIFF)
--- NOTE | 2019-08-19 09:54 | XR_ITS ---
PROCEDURE: XR CHEST PORTABLE CLINICAL HISTORY: coughing; shortness of breath COMPARISON: CXR CHEST(2 VIEWS-NOT PORTABLE) from 07/23/2012 CXR CHEST(2 VIEWS-NOT PORTABLE) from 08/02/2016 CXR2V XR chest 2V from 08/27/[address] chest wo con from 10/12/2017 FINDINGS: The cardiomediastinal silhouette and pulmonary vascularity are within normal limits. There is slight accentuation of interstitial markings appearing to be chronic. There is no convincing evidence of acute infiltrate. An 8 millimeter indeterminate nodule like opacity projects over the right base between the anterior 4th and 5th ribs along the midclavicular line. This could represent nipple shadow or a developing pulmonary nodule. Consider follow-up PA and lateral radiographs with nipple markers for further assessment. No acute bony abnormalities. IMPRESSION: No acute findings. Possible 8 millimeter developing pulmonary nodule right lung base. Dictated by: Juvenal Roland 08/19/2019 10:46 Electronically signed by Juvenal Roland in [place] 08/19/2019 10:46
[2019-08-19 10:15] VITALS: BP 125/74; PULSE 68; RESP 20; TEMP 36.9; O2SAT 95
[2019-08-19 10:25] VITALS: PULSE 80; PULSE 85
[2019-08-19 10:31] LABS: Eosinophils % 1 % (0-3); Lymphocytes % 42 % (10-50); Monocytes % 5 % (2-9); Neutrophils % 52 % (42-76); Platelet Estimate Normal; RBC Morphology Normal; Total Cells Counted 100
[2019-08-19 11:15] VITALS: BP 124/74; PULSE 68; RESP 20; TEMP 36.9; O2SAT 95
[2019-08-19 11:30] VITALS: BP 112/74; PULSE 68; RESP 20; TEMP 36.9; O2SAT 95
== END 2019-08-19 11:45 | disposition home or self-care (01) ==
LOC: LAB 09:09 → INF 09:12
PROVIDERS: Visit Provider Physician Assistant
DX: R05 Cough (principal); R09.89 Other specified symptoms and signs involving the circulatory and respiratory systems; E86.0 Dehydration
CPT/HCPCS: 71045; 80053; 85007; 85025; 87070; 87077; 87186; 87205; 94640; 96365; 96367; 96375

== ENCOUNTER → 2020-01-30 09:44 | Outpatient (CLI) | payer BC, SELFPAY ==
[2020-01-30 10:15] LABS: Basophils # 0.1 K/mm3 (0-0.2); Basophils % 0.8 % (0.1-2.0); Eosinophils # 0.4 K/mm3 (0.0-0.4); Eosinophils % 3.8 % (0.1-12.0); Hematocrit 43.9 % (42.0-52.0); Hemoglobin 15.4 g/dL (14.1-18.0); Lymphocytes # 4.5 K/mm3 (0.7-4.5); Lymphocytes % 39.7 % (10-50); Mean Corpuscular Hemoglobin 32.9 pg (27.0-31.2); Mean Corpuscular Volume 94.2 fl (80-94); Monocytes # 0.6 K/mm3 (0.1-1.0); Neutrophils # 5.8 K/mm3 (1.8-7.8); Neutrophils % 50.7 % (37.0-80.0); Platelet Count 331 K/mm3 (142-424); Red Blood Count 4.66 M/mm3 (4.60-6.20); Red Cell Distribution Width 13.9 % (11.5-17.5); White Blood Count 11.4 K/mm3 (4.8-10.8)
[2020-01-30 11:00] LABS: Chloride 103 mmol/L (98-107)
[2020-01-30 11:01] LABS: Potassium 4.5 mmoL/L (3.5-5.1); Sodium 138 mmol/L (136-145)
[2020-01-30 11:03] LABS: Alanine Aminotransferase 47 U/L (12-78); Albumin/Globulin Ratio 1.3 (1.1-1.8); Alkaline Phosphatase 86 U/L (38-126); Anion Gap 12.5 mEq/L (5-15); Aspartate Amino Transferase 42 U/L (17-59); Bilirubin,Total 0.4 mg/dl (0.2-1.3); Blood Urea Nitrogen 8 mg/dl (9-20); Calcium 9.7 mg/dl (8.4-10.2); Carbon Dioxide 27 mmol/L (22.0-30.0); Cholesterol 231 mg/dl (140-200); Estimated Glomerular Filt Rate 99 ml/min (>60); GFR (African American) 120 ML/MIN (>60); Glucose 105 mg/dl (74-100)
[2020-01-30 11:04] LABS: Chol/HDL Ratio 6.4 (1-3.5); HDL Cholesterol 36 mg/dl (40-60); Triglycerides 463 mg/dl (30-150)
[2020-01-30 11:15] LABS: Direct LDL Cholesterol 123.63 mg/dL (100-129)
[2020-01-30 11:35] LABS: Thyroid Stimulating Hormone 3.21 uIU/mL (0.465-4.68)
[2020-01-30 14:24] LABS: Coronavirus 19 IgG Antibody Negative (Negative); Coronavirus 19 IgM Antibody Negative (Negative)
== END ==
PROVIDERS: PCP Internal Medicine Gastroenterology; Visit Provider Nurse Practitioner Family
DX: I73.9 Peripheral vascular disease, unspecified (principal); E03.9 Hypothyroidism, unspecified; Z01.818 Encounter for other preprocedural examination
CPT/HCPCS: 36415; 80053; 80061; 84436; 84443; 85025; 86328

== ENCOUNTER 2020-02-02 09:07 | Day surgery (SDC) | payer BC, SELFPAY ==
[2020-01-28 12:53] VITALS: BMI 27.3
[2020-01-28 12:56] VITALS: BMI 28.1
[2020-02-02 09:21] VITALS: BP 148/89; PULSE 61; RESP 18; TEMP 36.4; O2SAT 96
[2020-02-02 09:35] VITALS: O2SAT 97
--- NOTE | 2020-02-02 09:40 | P.PCN_ITS ---
[facility] Procedure Note Procedure Note:: Upper Endoscopy Procedure Report: Esophagogastroduodenoscopy with cold biopsies and TTS balloon dilation Endoscopost: Ron Grove II, MD Referring Physician: Carroll REYES Date of Procedure: February 02, 2020 Equipment: Olympus GIF 180 standard upper endoscope Sedation: MAC sedation Indications: Mr. Carter is a 59-year-old gentleman with dyspepsia. He reports midepigastric abdominal discomfort that is chronic. He does take Prilosec which is not helping. He has noted moderate belching and fullness/early satiety. He reports some bloating. He has frequent regurgitation and reflux. He does have some dysphagia and globus sensation. He reports frequent clearance of the throat and some coughing. He has had some coffee ground regurgitation/emesis. He does feel that food sits on his stomach. He has chronic diarrhea. He reports moderate gassiness. He reports no nausea or weight loss. He believes that he had an EGD a few years ago. He does smoke 1 pack of cigarettes daily. Procedure: Prior to the procedure, a history and physical exam was performed, and patient's medications and allergies were reviewed. The risks, benefits and alternatives of the sedation and procedure were discussed with the patient. All questions were answered and informed consent was obtained. The patient was brought to the procedure room. Patient identification and proposed procedure were verified by the physician and the nurse. The patient was placed in a left lateral decubitus position and the scope was passed under direct vision. Throughout the procedure, the patient's blood pressure, pulse, and oxygen saturations were monitored continuously. The upper GI endoscopy was accomplished without difficulty. The patient tolerated the procedure well. Findings: The scope was passed directly into the upper esophagus and advanced to the third portion of the duodenum. The post bulbar duodenum and duodenal bulb were normal with normal mucosa and conniventes. Cold biopsies were taken from the post bulbar duodenum to rule out celiac disease. The scope was withdrawn through a normal duodenal bulb and pylorus into the stomach. There was linear erythema of the antrum and body of the stomach consistent with linear reactive gastropathy. The remainder of the antrum, body and fundus of the stomach were grossly normal. Upon retroflexion there was a small 2 to 3 cm hiatal hernia. 2 biopsies were taken in the antrum and along the lesser curvature for histology to rule out gastritis and/or H pylori. The scope was then withdrawn into the esophagus. There was no evidence of reflux esophagitis, Roger's or Schatzki's ring. There were tertiary contractions and evidence of moderate esophageal dysmotility. The entire esophagus was dilated to 60 Turkmen/20 mm with a TTS hydrostatic balloon. There was some resistance at the cricopharyngeus/cricopharyngeal spasm. The remainder of the esophageal mucosa was normal. Impression: 1. Cricopharyngeal spasm status post dilation to 20 mm 2. Nonerosive GERD with moderate esophageal dysmotility and small 2 to 3 cm hiatal hernia 3. Linear reactive gastropathy Plan: I will follow-up the biopsies. 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 We will discuss additional treatment options that will include promotility therapy. We will discuss dietary measures and additional treatment options. I would recommend C 13 sucrose breath testing. I will have him follow-up in 3 months for assessment of level of improvement.
[2020-02-02 09:55] VITALS: BP 113/73; PULSE 61; RESP 16; TEMP 36.2; O2SAT 95
[2020-02-02 10:05] VITALS: BP 118/78; PULSE 61; RESP 16; O2SAT 95
--- NOTE | 2020-02-02 10:05 | HMH.ANESCL ---
[facility] Anesthesia Checklist - Structural Data Admitted From: Home Planned Operative Procedure/s: egd Consent for Planned Operative Procedure(s) Verified: Yes - Additional verifications Anesthesia Reactions: No Hx Blood Transfusions: No - Airway Assessment C-Spine Mobility Assessed: Yes TMJ Mobility Assessed: Yes Dentition: Poor Dentition - Neurological Assessment Level of Consciousness: Awake, Alert, Appropriate - Anesthesia Plan Anesthesia Risk discussed: Yes Anesthesia Plan: Patient unable to respond/answer ASA Class: III Anesthesia Type: MAC [facility] History I have reviewed the patient's past medical history: Yes Medical History: Reports:: Gastroesophageal Reflux Disease(GERD), Hyperlipidemia, Hypertension, Peripheral Artery Disease Denies:: Cancer, Diabetes Mellitus Type 1, Diabetes Mellitus Type 2, Internal Pacemaker, MRSA, Seizures *Have you ever received a pneumonia vaccine?: No *Have you received a flu vaccine this season?: No Other Medical History: Reports: Hypothyroidism, Sinus Problems Anesthesia experience/problems:: none Laterality Cases: Bilateral: Carpal Tunnel Release Other Surgeries: Yes: Cardiac Catheterization, Colonoscopy, Coronary Stent, Plastic Surgery, Sinus Surgery, Other. No: Pacemaker Amputation: No Fractures: Yes (FINGERS) - *Social History Last grade of school completed: GED Smoking Status: Current every day smoker Tobacco Type: cigarettes # Packs/Day (cigarettes): 1 #Yrs smoked (if former smoker): 40 Alcohol Intake: current Alcohol Intake Frequency:: 3 or more drinks per day Substance Use Type: denies use *Occupational Status:: employed Housing: house Household Members: spouse, family *Travel in the last 8 weeks: None Family Hx:: Heart Attack
[2020-02-02 10:15] VITALS: BP 125/85; PULSE 55; RESP 16; O2SAT 95
[2020-02-02 10:25] VITALS: BP 139/79; PULSE 60; RESP 16; TEMP 36.2; O2SAT 96
== END 2020-02-02 10:34 | disposition home or self-care (01) ==
LOC: OUTP 09:09
PROVIDERS: PCP Nurse Practitioner Family; Visit Provider Internal Medicine Gastroenterology
PROC: 0DJ08ZZ Inspection of Upper Intestinal Tract, Via Natural or Artificial Opening Endoscopic (ICD-10-PCS; CPT 43235; principal; 2020-02-02 10:00)
DX: K21.9 Gastro-esophageal reflux disease without esophagitis (principal); J39.2 Other diseases of pharynx; Z72.0 Tobacco use; K22.4 Dyskinesia of esophagus; K44.9 Diaphragmatic hernia without obstruction or gangrene; K31.89 Other diseases of stomach and duodenum; E78.5 Hyperlipidemia, unspecified; I10 Essential (primary) hypertension; I73.9 Peripheral vascular disease, unspecified; E03.9 Hypothyroidism, unspecified; Z87.39 Personal history of other diseases of the musculoskeletal system and connective tissue; Z95.818 Presence of other cardiac implants and grafts
CPT/HCPCS: 43239; 43249; C1726

== ENCOUNTER → 2020-02-13 13:57 | Outpatient (CLI) | payer BC, SELFPAY ==
[2020-02-13 15:26] LABS: Hemoglobin A1C 5.8 % (4.0-6.0)
== END ==
PROVIDERS: Visit Provider Nurse Practitioner Family
DX: R73.9 Hyperglycemia, unspecified (principal)
CPT/HCPCS: 83036

== ENCOUNTER → 2020-03-19 08:02 | Outpatient (CLI) | payer BC, SELFPAY ==
--- NOTE | 2020-03-19 08:05 | CT_ITS ---
PROCEDURE: CT CHEST WO CON CLINICAL INDICATION: NODULE FOLLOW UP lung nodule follow up prior 10/12/17 COMPARISON: CT CHESTWO CT chest wo con from 10/12/2017 TECHNIQUE: Axial images obtained with sagittal and coronal reformats. All CT scans at the facility use one or more dose reduction, viz: automated exposure control, ma/kV adjustment per patient size (including targeted exams where dose is matched to indication, i.e. head), or iterative reconstruction technique. FINDINGS: There are scattered small mediastinal lymph nodes which do not appear significantly changed. There is some coronary artery calcification. Normal heart size. There are scattered small axillary lymph nodes. Scarring is present in the right apex with at least 2 nodular opacities in the right upper lobe measuring 9 and 6 mm. These do appear stable. No new nodules are evident. No effusions or infiltrates. Blebs are present in the right apex which are not significantly changed associated with the scarring. No acute bony findings. IMPRESSION: Stable CT appearance of the chest. No change in the right apical nodules with associated scarring and blebs. Dictated by: Thomas Will MD 03/20/2020 10:43 Thomas Will MD in [facility] 03/20/2020 10:43
== END ==
PROVIDERS: PCP Nurse Practitioner Family; Visit Provider Internal Medicine Pulmonary Disease
DX: R93.89 Abnormal findings on diagnostic imaging of other specified body structures (principal); R06.00 Dyspnea, unspecified; J44.9 Chronic obstructive pulmonary disease, unspecified; Z12.2 Encounter for screening for malignant neoplasm of respiratory organs; Z72.0 Tobacco use
CPT/HCPCS: 71250

== ENCOUNTER → 2020-05-10 10:41 | Outpatient (POV) | payer BC, SELFPAY | PROVIDERS: Visit Provider Nurse Practitioner Family | DX: Z00.00 Encounter for general adult medical examination without abnormal findings (principal) ==

== ENCOUNTER → 2020-05-25 10:02 | Outpatient (CLI) | payer BC, SELFPAY ==
--- NOTE | 2020-05-25 10:56 | PC.NURSE ---
PFT Completed without complications. Albuterol 0.083% given via hand held nebulizer per protocol. Pt tolerated well.
== END ==
PROVIDERS: PCP Nurse Practitioner Family; Visit Provider Internal Medicine Pulmonary Disease
DX: R06.00 Dyspnea, unspecified (principal)
CPT/HCPCS: 94060; 94618; 94726; 94729

== ENCOUNTER 2020-07-15 07:51 | Day surgery (SDC) | payer BC, SELFPAY ==
[2020-07-15] VITALS (35 sets, daily range): BP systolic 93–155; BP diastolic 59–99; PULSE 52–66; RESP 16–20; TEMP 36.6; O2SAT 90–99; BMI 28.5
--- NOTE | 2020-07-15 07:04 | IR_ITS ---
APPROVED REPORT Patient [facility] Aide: VARGAS Worley RT (R) PROCEDURES Left femoral arterial access Catheter placed in the right common iliac artery with right common iliac artery antegrade angiogram with unilateral runoff to the right foot Drug-coated balloon angioplasty to the right superficial femoral artery INDICATION Ophelia class III claudication, Atherosclerosis involving the right external iliac artery and right superficial femoral artery Informed consent was obtained prior to the procedure. COMPLICATIONS none Estimated Blood Loss: less than 10 mls TECHNIQUE 1% lidocaine used to anesthetize the left femoral groin. The left femoral artery was accessed via the Seldinger technique. A 5 Mexican sheath was placed in the left femoral artery. A rim catheter was placed under fluoroscopic guidance into the right common iliac artery and unilateral angiography with runoff to the right foot was performed. Following this therapeutic heparin was administered and the long advantage wire was placed into the right popliteal artery under fluoroscopic guidance. The 5 Mexican sheath was exchanged for a long 6 Mexican destination sheath. A 5 mm x 40 mm balloon was deployed in 3 areas in the proximal superficial femoral artery. Dilating or pretreating the stenosis. Following this a 5 mm x 120 mm drug-coated balloon was then deployed at 8 ayse for 3 minutes further treating the lesion. At the end of the procedure excellent angiographic results were obtained. The apparatus was removed the sheath was sewn into place patient was transferred the postop holding in stable condition. Prior to the procedure therapeutic heparin and a therapeutic ACT was achieved. ANGIOGRAPHIC RESULTS The right common iliac artery is widely patent The right internal iliac artery is widely patent The right external iliac artery has a stent in its proximal to mid segment which is widely patent free of in-stent restenosis with excellent proximal distal transitioning The right common femoral artery is normal The right profunda femoris artery is normal The right superficial femoral artery has a long 80 to 90% circumferential stenosis with the remaining vessel with mild 30% plaque The right popliteal artery is normal There is three-vessel runoff below the right knee into the foot IMPRESSION Widely patent stent in the right external iliac artery Severe stenosis in the proximal superficial femoral artery Successful drug-coated balloon angioplasty of the right superficial femoral artery severe disease reduced to 10% with 1 drug-coated balloon. PLAN 1. Aspirin Plavix 2. 1 month I recommend dropping the aspirin and adding Xarelto 2.5 twice daily plus Plavix 75 mg 3. Immediate avoidance of tobacco products 4. LDL less than 55 5. Physical therapy 6. Risk factor modification Electronically signed by : Dario Tovar, 07/15/2020 12:15:22
[2020-07-15 08:33] LABS: Basophils # 0.1 K/mm3 (0-0.2); Eosinophils # 0.5 K/mm3 (0.0-0.4); Eosinophils % 3.5 % (0.1-12.0); Hematocrit 51.3 % (42.0-52.0); Hemoglobin 17.6 g/dL (14.1-18.0); Lymphocytes # 4.9 K/mm3 (0.7-4.5); Lymphocytes % 34.2 % (10-50); Mean Corpuscular HGB Conc 34.3 g/dL (31.8-35.4); Mean Corpuscular Hemoglobin 32.1 pg (27.0-31.2); Mean Corpuscular Volume 93.6 fl (80-94); Mean Platelet Volume 7.6 fl (7.4-10.4); Monocytes # 0.8 K/mm3 (0.1-1.0); Monocytes % 5.3 % (1.7-9.3); Neutrophils % 56.1 % (37.0-80.0); Platelet Count 319 K/mm3 (142-424); Red Blood Count 5.48 M/mm3 (4.60-6.20); Red Cell Distribution Width 13.7 % (11.5-17.5); White Blood Count 14.2 K/mm3 (4.8-10.8)
[2020-07-15 08:50] LABS: Anion Gap 11.8 mEq/L (5-15); Blood Urea Nitrogen 13 mg/dl (9-20); Calcium 9.7 mg/dl (8.4-10.2); Carbon Dioxide 31 mmol/L (22.0-30.0); Chloride 101 mmol/L (98-107); Creatinine Clearance Estimated 94 mL/min (50-200); Estimated Glomerular Filt Rate 77 ml/min (>60); GFR (African American) 93 ML/MIN (>60); Glucose 127 mg/dl (74-100); Potassium 4.8 mmoL/L (3.5-5.1); Sodium 139 mmol/L (136-145)
[2020-07-15 09:07] LABS: Coronavirus 19 IgG Antibody Negative (Negative); Coronavirus 19 IgM Antibody Negative (Negative)
[2020-07-15 13:59] LABS: CATHL Activated Clotting Time > 400 SEC (74-125)
[2020-09-13 13:54] LABS: CATHL Activated Clotting Time 152 SEC (74-125)
== END 2020-07-15 17:49 | disposition home or self-care (01) ==
PROVIDERS: PCP Nurse Practitioner Family; Visit Provider Internal Medicine
DX: I70.223 Atherosclerosis of native arteries of extremities with rest pain, bilateral legs (principal); I10 Essential (primary) hypertension; Z72.0 Tobacco use; E03.9 Hypothyroidism, unspecified; J44.9 Chronic obstructive pulmonary disease, unspecified; Z79.899 Other long term (current) drug therapy
CPT/HCPCS: 36415; 37226; 80048; 85025; 85347; 86328; 99152; 99153; C1725; C1766; C1769; C1894; J1644; J2720; Q9966

== ENCOUNTER 2020-08-13 12:58 | Outpatient (RCR) | payer BC, SELFPAY | END 2020-10-13 09:41 | disposition home or self-care (01) | LOC: PT 12:58 | PROVIDERS: Visit Provider Nurse Practitioner Family | DX: I73.9 Peripheral vascular disease, unspecified (principal) | CPT/HCPCS: 93668; 93798 ==

== ENCOUNTER 2020-11-05 13:44 | Emergency (ER) | payer BC, SELFPAY ==
[2020-11-05 14:30] VITALS: BP 149/89; PULSE 68; RESP 19; TEMP 36.8; O2SAT 97; BMI 28.1
--- NOTE | 2020-11-05 14:52 | HMH.EDUTC ---
[facility] [place] Clinical Impression: Peripheral arterial disease Disposition: Home, Self-Care Condition on Discharge: Good Instructions: DI for Peripheral Vascular (Arterial) Disease Additional Instructions: Follow up with Dr Tovar next week Take meds as directed Stop smoking Referrals: Haritha Almazan APRN [Primary Care Provider] - Time of Disposition: 14:57 Medical Decision Making - Medical Records Medical records reviewed: Yes: I reviewed the patient's medical records. MR Comment: MPRESSION. Widely patent stent in the right external iliac artery. Severe stenosis in the proximal superficial femoral artery. Successful drug-coated balloon angioplasty of the right superficial. femoral artery severe disease reduced to 10% with 1 drug-coated. balloon. - Guzman Inquiry Pt receiving controlled substance: No Vital Signs: 11/05/20 14:30 Temperature 98.2 F Temperature Source Oral Pulse Rate [Right Brachial] 68 Respiratory Rate 19 Blood Pressure [Right Arm] 149/89 H Blood Pressure Mean [Right Arm] 109 Blood Pressure Source [Right Arm] Automatic Cuff Blood Pressure Position [Right Arm] Sitting 02 Sat by Pulse Oximetry 97 Oxygen Delivery Method Room Air [facility] [place] HPI - General Stated complaint: right leg pain, has stents Time Seen by Provider: 11/05/20 14:52 Mode of Arrival: Ambulatory Source of Information: Patient Limitations: No Limitations Description of Symptoms (Recalled from Triage Doc. by RN): PATIENT C/O SHOOTING PAIN IN RIGHT WEST THAT STARTED 3 MONTHS AGO AND HAS GOTTEN WORSE THIS WEEK. S/P STENT PLACEMENT IN THAT LEG IN JULY 2020 HEENT Symptoms (Recalled from RN notes): No Resp Symptoms (Recalled from RN notes): No Skin Symptoms (Recalled from RN notes): No MS Symptoms (Recalled from RN notes): Yes Functional Status (Recalled from RN notes): WNL - History of Present Illness Provider Complaint: Patient states that he has had pain in his right west for about 3 months. It has been worse for the past week or so. He as shoveling dirt this am and it got very bad. Had sharp shooting pains on side of calf. It worsens with walking and improves with rest. He did have stents in July. He smokes 2-3 packs of cigarettes per day. He did PT for a little while for PAD but didn't think it helped. He is taking Xarelto. Onset (ago): month(s) (3) Location: right, lower extremity Quality: burning, stabbing Relieving factors: immobilization Exacerbating factors: movement Treatments prior to arrival: none - Related Data Home Medications Medication Instructions Recorded Confirmed aspirin 81 mg tablet,delayed 81 mg PO DAILY 08/12/19 09/20/20 release ergocalciferol (vitamin D2) 1,250 1,250 mcg PO WEEKLY cap 07/12/20 09/20/20 mcg (50,000 unit) capsule loratadine 10 mg tablet 10 mg PO DAILY tab 07/12/20 09/20/20 simvastatin 10 mg tablet 5 mg PO HS tab 07/12/20 09/20/20 Previous Rx's Medication Instructions Recorded albuterol sulfate 90 mcg/actuation 1 inh INHALATION QID PRN #8 g 06/16/20 aerosol inhaler rivaroxaban 2.5 mg tablet 2.5 mg PO BID #60 tab 08/23/20 cyclobenzaprine 10 mg tablet See Rx Instructions .ROUTE 11/01/20 .COMPLEX #60 tab esomeprazole magnesium 20 mg See Rx Instructions .ROUTE 11/01/20 capsule,delayed release .COMPLEX #90 cap ropinirole 1 mg tablet 1 mg PO DIRECTED #60 tab 11/01/20 Allergies Allergy/AdvReac Type Severity Reaction Status Date / Time NSAIDS (Non-Steroidal Allergy Mild Verified 09/20/20 13:01 Anti-Inflamma [NSAIDS (NON-STEROIDAL ANTI-INFLAMMA] - Worker's Comp Is this a Worker's Comp case?: No [facility] History - Hepatitis A Screen Drug use history?: No High risk sexual behaviors?: No History of sexually transmitted infection?: No Currently employed?: No Childcare worker?: No Do you have indoor plumbing?: Yes Do you have electricity?: Yes Attestation statement:: This patient has been screened for Hepatitis A risk f
[2020-11-05 15:00] VITALS: BP 149/89; PULSE 68; RESP 19; TEMP 36.8; O2SAT 97
== END 2020-11-05 15:05 | disposition home or self-care (01) ==
PROVIDERS: Emergency Provider Physician Assistant; PCP Nurse Practitioner Family
DX: I70.211 Atherosclerosis of native arteries of extremities with intermittent claudication, right leg (principal); E78.5 Hyperlipidemia, unspecified; I10 Essential (primary) hypertension; E03.9 Hypothyroidism, unspecified; K21.9 Gastro-esophageal reflux disease without esophagitis; Z88.6 Allergy status to analgesic agent; F17.210 Nicotine dependence, cigarettes, uncomplicated; Z79.899 Other long term (current) drug therapy
CPT/HCPCS: 99202; G0463

== ENCOUNTER → 2020-11-10 10:18 | Outpatient (CLI) | payer BC, SELFPAY ==
[2020-11-10 10:58] LABS: Blood Urea Nitrogen 7 mg/dl (9-20); Estimated Glomerular Filt Rate 86 ml/min (>60); GFR (African American) 105 ML/MIN (>60)
--- NOTE | 2020-11-10 11:03 | CT_ITS ---
PROCEDURE: CT ANGIO ABDOMEN/FEMORAL CLINICAL INDICATION: pad, claudication COMPARISON: CT CT CHEST WO CON from 03/19/2020 TECHNIQUE: IV Contrast: 75ML Isovue 370 Oral Contrast None Axial images obtained with sagittal and coronal reformats. All CT scans at the facility use one or more dose reduction, viz: automated exposure control, ma/kV adjustment per patient size (including targeted exams where dose is matched to indication, i.e. head), or iterative reconstruction technique. FINDINGS: VASCULAR: The abdominal aorta is normal caliber with minor atheromatous calcified and noncalcified plaques. The celiac trunk, SMA and MADHAV are unremarkable. Bilateral renal arteries demonstrate no focal abnormality. Renal ostia appear unremarkable. The bilateral common iliac arteries demonstrate minor atheromatous calcification. No evidence of stenosis. Right: Stent is noted in the right external iliac artery. The common femoral and superficial femoral veins demonstrate atheromatous changes. There is occlusion of the mid segment of the right superficial femoral artery. There is reconstitution of flow in the distal superficial femoral artery. The popliteal artery appears unremarkable. There is trifurcation of the popliteal artery with three-vessel runoff to the ankle. Left: Atheromatous calcification of the left common iliac artery noted. The left external iliac, and common femoral and superficial femoral arteries demonstrate minor atheromatous calcifications without evidence of stenosis or occlusion. The popliteal artery is normal in caliber. No evidence of stenosis or occlusion. There is trifurcation noted at the popliteal with the three-vessel runoff to the ankle. LOWER THORAX: Visualized lung bases are clear. HEPATOBILIARY: There is focal heterogeneous density of the segment 4 a of the liver without focal discrete nodules. The liver is otherwise unremarkable within the limitations of single phase study. The gallbladder is unremarkable. No intra or extrahepatic biliary dilation. PANCREAS: No pancreatic masses or ductal dilation SPLEEN:No splenomegaly ADRENALS:Normal without evidence of focal lesions. KIDNEYS/URETERS/BLADDER: No hydronephrosis, renal calculi. No perinephric fluid collections. PERITONEUM / RETROPERITONEUM: No free fluid or free intraperitoneal air. LYMPH NODES: No significant retroperitoneal or mesenteric adenopathy. GI TRACT: Few colonic diverticula without evidence of diverticulitis. Otherwise the largest small bowel loops demonstrate no focal wall thickening, obstruction or adjacent inflammatory changes. Appendix the appendix is normal. The pelvic structures are unremarkable. Prostatic calcification is noted. BONES: Visualized osseous structures are unremarkable. IMPRESSION: Occlusion of the mid segment of right superficial femoral artery with reconstitution of flow in the distal right superficial femoral artery. Triple vessel runoff to the ankle bilaterally. Heterogeneous density of the liver, predominantly in the segment 4 a of the liver, incompletely evaluated on the current study. Ultrasound of the liver in the 1st instance is suggested for further evaluation. Other minor chronic findings as described above. Dictated by: Dede Muñiz 11/10/2020 14:09 Dede Muñiz in [facility] 11/10/2020 14:09
== END ==
PROVIDERS: PCP Nurse Practitioner Family; Visit Provider Nurse Practitioner Family
DX: I70.213 Atherosclerosis of native arteries of extremities with intermittent claudication, bilateral legs (principal); F17.210 Nicotine dependence, cigarettes, uncomplicated
CPT/HCPCS: 36415; 75635; 82565; 84520; Q9967

== ENCOUNTER 2020-11-20 16:23 | Emergency (ER) | payer BC, SELFPAY ==
[2020-11-20 16:27] VITALS: BP 140/97; PULSE 94; RESP 19; TEMP 36.5; O2SAT 96; BMI 28.8
[2020-11-20 16:42] VITALS: BP 140/97; PULSE 94; RESP 19; TEMP 36.5; O2SAT 96
--- NOTE | 2020-11-20 16:45 | HMH.EDUTC ---
[facility] [place] Clinical Impression: Exposure to COVID-19 virus Disposition: Home, Self-Care Condition on Discharge: Good Instructions: Preventing the Spread of Coronavirus Discharge Instructions Additional Instructions: Drink plenty of fluids. Take tylenol for pain or fever. Return if you begin to have difficulty breathing. Follow up with your regular doctor. GO TO THE ER FOR ANY WORSENING SYMPTOMS Referrals: Haritha Almazan APRN [Primary Care Provider] - Time of Disposition: 16:50 Medical Decision Making - Medical Records Medical records reviewed: No: I reviewed the patient's medical records. - Guzman Inquiry Pt receiving controlled substance: No Vital Signs: 11/20/20 16:27 11/20/20 16:42 Temperature 97.7 F 97.7 F Temperature Source Oral Pulse Rate 94 H Pulse Rate [Left] 94 H Respiratory Rate 19 19 Blood Pressure 140/97 H Blood Pressure [Right Arm] 140/97 H Blood Pressure Mean [Right Arm] 111 02 Sat by Pulse Oximetry 96 [facility] [place] HPI - General Stated complaint: covid test Time Seen by Provider: 11/20/20 16:45 Mode of Arrival: Ambulatory Source of Information: Patient Limitations: No Limitations Description of Symptoms (Recalled from Triage Doc. by RN): Pt states he needs a Covid test for surgery Sunday. HEENT Symptoms (Recalled from RN notes): No Resp Symptoms (Recalled from RN notes): No Skin Symptoms (Recalled from RN notes): No MS Symptoms (Recalled from RN notes): No Functional Status (Recalled from RN notes): wnl - History of Present Illness Provider Complaint: He is here to have a covid test done before he has surgery done later this week. He denies any exposure or symptoms. - Related Data Home Medications Medication Instructions Recorded Confirmed aspirin 81 mg tablet,delayed 81 mg PO DAILY 08/12/19 11/17/20 release ergocalciferol (vitamin D2) 1,250 1,250 mcg PO WEEKLY cap 07/12/20 11/17/20 mcg (50,000 unit) capsule loratadine 10 mg tablet 10 mg PO DAILY tab 07/12/20 11/17/20 simvastatin 10 mg tablet 5 mg PO HS tab 07/12/20 11/17/20 cyclobenzaprine 10 mg tablet 10 mg PO BID PRN tab 11/09/20 11/17/20 esomeprazole magnesium 20 mg 20 mg PO DAILY cap 11/09/20 11/17/20 capsule,delayed release Previous Rx's Medication Instructions Recorded albuterol sulfate 90 mcg/actuation 1 inh INHALATION QID PRN #8 g 06/16/20 aerosol inhaler rivaroxaban 2.5 mg tablet 2.5 mg PO BID #60 tab 08/23/20 ropinirole 1 mg tablet 1 mg PO DIRECTED #60 tab 11/01/20 hydrocodone 5 mg-acetaminophen 325 1 tab PO Q6H PRN 3 Days #12 tab 11/17/20 mg tablet nicotine 21 mg/24 hr daily 1 patch TRANSDERMA DAILY #28 each 11/17/20 transdermal patch Allergies Allergy/AdvReac Type Severity Reaction Status Date / Time NSAIDS (Non-Steroidal Allergy Mild Verified 11/20/20 16:42 Anti-Inflamma [NSAIDS (NON-STEROIDAL ANTI-INFLAMMA] - Worker's Comp Is this a Worker's Comp case?: No [facility] History - Hepatitis A Screen Drug use history?: No High risk sexual behaviors?: No History of sexually transmitted infection?: No Currently employed?: No Childcare worker?: No Do you have indoor plumbing?: Yes Do you have electricity?: Yes Attestation statement:: This patient has been screened for Hepatitis A risk factors. I have reviewed the patient's past medical history: Yes Medical History: Reports:: Gastroesophageal Reflux Disease(GERD), Hyperlipidemia, Hypertension, Peripheral Artery Disease Denies:: Cancer, Diabetes Mellitus Type 1, Diabetes Mellitus Type 2, Internal Pacemaker, MRSA, Seizures Other Medical History: Reports: Hypothyroidism, Sinus Problems Laterality Cases: Bilateral: Carpal Tunnel Release Other Surgeries: Yes: Cardiac Catheterization, Colonoscopy, Coronary Stent, Plastic Surgery, Sinus Surgery, Other. No: Pacemaker Amputation: No Fractures: Yes (FINGERS) Comment: facial reconstruction - Social History Smoking Status: Current every day
== END 2020-11-20 16:51 | disposition home or self-care (01) ==
PROVIDERS: Emergency Provider Nurse Practitioner Family; PCP Nurse Practitioner Family
DX: Z11.52 Encounter for screening for COVID-19 (principal)
CPT/HCPCS: 99202; G0463; U0003

== ENCOUNTER 2020-11-22 09:15 | Day surgery (SDC) | payer BC, SELFPAY ==
[2020-11-22] VITALS (40 sets, daily range): BP systolic 117–167; BP diastolic 66–111; PULSE 50–95; RESP 13–20; TEMP 36.5–36.8; O2SAT 92–98; BMI 27.9
--- NOTE | 2020-11-22 | IR_ITS ---
APPROVED REPORT Patient Location: Outpatient PROCEDURES Left femoral arterial access Catheter placement in the abdominal aorta Abdominal aortogram Repositioning of the cath and abdominal aorta Bilateral iliofemoral runoff Catheter placement in the right superficial femoral artery Right superficial femoral artery selective angiogram Drug-coated balloon angioplasty to the right popliteal artery and right superficial femoral artery Bare-metal stent deployment to the right popliteal artery extending back into the right superficial femoral artery INDICATION Recalcitrant claudication, Peripheral artery disease, Occluded right superficial femoral artery, Informed consent was obtained prior to the procedure. COMPLICATIONS None Estimated Blood Loss: Less than 10 mls TECHNIQUE 1% lidocaine used anesthetize the left groin. Left femoral artery was accessed via the Salinger technique and a 5 [place] sheath was placed in the femoral artery. A pigtail catheter was advanced into the distal abdominal aorta and abdominal aortography was performed. The catheter was then repositioned and bilateral iliofemoral runoff was performed. Following this the 5 [place] sheath was exchanged for a 45 cm destination sheath. Prior to the sheath exchange a long advantage wire was placed under fluoroscopic guidance into the right common iliac artery extending into the right superficial femoral artery. The 5 [place] sheath was exchanged for a 6 [place] sheath with the catheter tip ending in the proximal right superficial femoral artery. Therapeutic heparin was administered giving a therapeutic ACT. The long advantage wire was then prolapsed at the proximal occlusion of the superficial femoral artery and then used to push through the occlusion reconstituting into the right popliteal artery. A 5 mm balloon was then used to predilate the chronic occlusion of the right superficial femoral artery. Following this a 5 mm x 150 mm drug-coated balloon was deployed at 10 ayse for 3 minutes in the right superficial femoral artery. An additional 5 mm x 80 mm drug-coated balloon was then deployed at 10 ayse for 3 minutes. Following this there was a large dissection with poor flow throughout the superficial femoral artery therefore two 6 mm x 100 mm self-expanding stents were deployed in the right popliteal artery extending back to the right superficial femoral artery and overlapping. 5 mm balloon was used to post dilate the stenosis. After achieving excellent angiographic results the apparatus was removed the patient was transferred to the postop pulmonary stable condition for sheath removal ANGIOGRAPHIC RESULTS The infrarenal abdominal aorta is normal. The bilateral common iliac arteries are widely patent. The right external iliac artery has a stent in its proximal segment which is widely patent with 30% concentric in-stent restenosis. The left external iliac artery has a 60 to 70% stenosis. The bilateral internal iliac arteries are patent. The right common femoral artery is normal. The left common femoral artery has a 50% stenosis at the sheath insertion site. The bilateral profunda femoris arteries are patent. The right superficial femoral artery is proximally patent however then abruptly occludes and then fills at the popliteal level through collaterals from the profunda femoris. Low the knee there is three-vessel runoff The left superficial femoral artery has mild atheromatous plaque and is patent into the left popliteal artery with three-vessel runoff below the knee IMPRESSION Peripheral artery disease as described above Chronically occluded right superficial femoral artery which extends into the proximal right popliteal
[2020-11-22 09:59] LABS: Basophils # 0.1 K/mm3 (0-0.2); Basophils % 0.8 % (0.1-2.0); Chloride 105 mmol/L (98-107); Eosinophils # 0.4 K/mm3 (0.0-0.4); Eosinophils % 3.8 % (0.1-12.0); Hematocrit 45.5 % (42.0-52.0); Hemoglobin 15.8 g/dL (14.1-18.0); Lymphocytes # 4.7 K/mm3 (0.7-4.5); Lymphocytes % 40.8 % (10-50); Mean Corpuscular HGB Conc 34.7 g/dL (31.8-35.4); Mean Corpuscular Hemoglobin 31.6 pg (27.0-31.2); Mean Corpuscular Volume 91.1 fl (80-94); Mean Platelet Volume 7.7 fl (7.4-10.4); Monocytes # 0.6 K/mm3 (0.1-1.0); Monocytes % 5.1 % (1.7-9.3); Neutrophils # 5.7 K/mm3 (1.8-7.8); Neutrophils % 49.5 % (37.0-80.0); Platelet Count 286 K/mm3 (142-424); Potassium 4.1 mmoL/L (3.5-5.1); Red Blood Count 4.99 M/mm3 (4.60-6.20); Red Cell Distribution Width 13.8 % (11.5-17.5); Sodium 137 mmol/L (136-145); White Blood Count 11.6 K/mm3 (4.8-10.8)
[2020-11-22 10:02] LABS: Anion Gap 12.1 mEq/L (5-15); Blood Urea Nitrogen 12 mg/dl (9-20); Carbon Dioxide 24 mmol/L (22.0-30.0); Creatinine Clearance Estimated 117 mL/min (50-200); Estimated Glomerular Filt Rate 99 ml/min (>60); GFR (African American) 120 ML/MIN (>60)
[2020-11-22 10:03] LABS: Glucose 116 mg/dl (74-100)
[2020-11-22 14:33] LABS: CATHL Activated Clotting Time 181 SEC (74-125)
[2020-11-22 14:34] LABS: CATHL Activated Clotting Time > 400 SEC (74-125)
[2020-11-22 14:35] LABS: CATHL Activated Clotting Time 176 SEC (74-125)
--- NOTE | 2020-11-22 18:13 | PC.NURSE ---
pt presented on unit at approx 1445. cath site in left groin was checked with [employer] during bedside report. no hematoma noted. dsg cdi. lungs clear, bowel sounds active. no other skin issues noted. at approx 1458 pt calls out and states it feels like water is running down his leg. upon assessment it was noted that pt had a golf ball sized hematoma to the left groin and blood was trickling/seeping from the cath site. pressure was held, time restarted. pt now to lay flat until 2029. roofing laborer at bedside, order given for morphine 4mg iv x 1 now
--- NOTE | 2020-11-23 02:52 | PC.NURSE ---
Pt has rested well this shift. Cath site to (L) femoral with DSG in place. Bruising noted. Pt remained in bed until 2129 then ambulated with assistance to BR. Pt did not have any difficulty. VS have remained stable. Pt is currently NPO for outpt procedure. No other concerns at this time. Will continue to monitor.
--- NOTE | 2020-11-23 03:24 | PC.NURSE ---
Pt c/o discomfort to (R) leg. Pt states it feels like a stabbing pain. Medicated per aug. LLE with DSG intact. Pt states that it doesn't hurt. Bruising continues. No other concerns. Will continue to monitor.
[2020-11-23 04:00] VITALS: BP 150/79; PULSE 63; RESP 18; TEMP 36.4; O2SAT 95
[2020-11-23 04:57] VITALS: BMI 28.2
[2020-11-23 07:28] VITALS: BP 162/84; PULSE 57; RESP 18; TEMP 36.4; O2SAT 97
--- NOTE | 2020-11-23 08:01 | HMH.PHACLD ---
Jasmeet Carter has received discharge medication counseling on the following medications: PATIENT IS CURRENTLY TAKING ASPIRIN DR 81 MG DAILY, SIMVASTATIN 5 MG HS, AND XARELTO 2.5 MG BID. MD ADDING PLAVIX 75 MG DAILY AT THIS TIME. PERIPHERAL STENT.
--- NOTE | 2020-11-23 08:12 | PC.NURSE ---
THIS RN PROVIDED STENT CARE EDUCATION AND INFORMED PATIENT OF FOLLOW UP APPOINTMENT. DRESSING IS CLEAN, DRY AND INTACT. PATIENT REQUESTED SOMETHING STRONGER FOR PAIN, THIS RN SPOKE WITH CHUN FROM [facility], PER CHUN, SHE INFORMED DR. VASQUEZ. NO NEW ORDERS RECEIVED. NO NEW CONCERNS.
== END 2020-11-23 08:20 | disposition home or self-care (01) ==
LOC: CATHLAB 09:16 → 2ND 14:54
PROVIDERS: PCP Nurse Practitioner Family; Visit Provider Internal Medicine
DX: I70.221 Atherosclerosis of native arteries of extremities with rest pain, right leg (principal); I77.1 Stricture of artery; F17.210 Nicotine dependence, cigarettes, uncomplicated; I10 Essential (primary) hypertension; E03.9 Hypothyroidism, unspecified; I70.92 Chronic total occlusion of artery of the extremities
CPT/HCPCS: 36247; 37226; 75710; 80048; 85025; 85347; 99152; 99153; C1725; C1766; C1769; C1876; C1894; J1644; J2720; Q9966

== ENCOUNTER → 2020-11-23 08:26 | Outpatient (CLI) | payer BC, SELFPAY ==
--- NOTE | 2020-11-23 08:32 | US_ITS ---
PROCEDURE: US LIVER CLINICAL INDICATION: Abnormal Abd CT COMPARISON: CT CT ANGIO ABDOMEN/FEMORAL from 11/10/2020 FINDINGS: PANCREAS: Pancreatic tail is not well delineated. The body and head of the pancreas have an unremarkable appearance. LIVER: Diffuse increased echogenicity of the liver with poor through transmission of sound consistent with hepatic steatosis. There is a small cyst seen in the posterior aspect of the right hepatic lobe at 8 mm. No sonographic abnormality evident in the area of heterogeneous density noted on the recent CT scan suggesting that this area represents more focal fatty change.. There is appropriate direction of blood flow within non dilated portal vein.. RIGHT KIDNEY: Unremarkable. Normal size and echogenicity. No hydronephrosis GALLBLADDER: No gallstones, gallbladder wall thickening, pericholecystic fluid, or biliary dilatation. IMPRESSION: Fatty liver. Small hepatic cyst with no other hepatic abnormalities apparent. Dictated by: Thomas Will MD 11/23/2020 17:21 Thomas Will MD in [facility] 11/23/2020 17:21
== END ==
PROVIDERS: PCP Nurse Practitioner Family; Visit Provider Nurse Practitioner Family
DX: R93.89 Abnormal findings on diagnostic imaging of other specified body structures (principal)
CPT/HCPCS: 76705

== ENCOUNTER 2020-12-22 12:27 | Inpatient (IN) | payer BC, SELFPAY ==
[2020-12-22] VITALS (20 sets, daily range): BP systolic 125–168; BP diastolic 67–98; PULSE 55–78; RESP 16–18; TEMP 36.2–43; O2SAT 93–99; BMI 28.3
--- NOTE | 2020-12-22 12:34 | XR_ITS ---
PROCEDURE: XR KNEE RT 3V CLINICAL INDICATION: pain COMPARISON: No exams were available for comparison FINDINGS: No fracture or dislocation. No lytic or blastic change. There is normal mineralization. The joint spaces are well-preserved. No significant degenerative/arthritic changes. No erosive changes evident. There is a incompletely visualized femoral artery stent extending to the junction with the popliteal artery. Other findings:There is mild diffuse soft tissue swelling over the patella and medial aspect of the knee. There are no foreign body seen.. IMPRESSION: Mild diffuse soft tissue swelling anteriorly and medially, no acute bony abnormality seen Dictated by: Dr. Eduardo De Leon MD 12/22/2020 14:02 Dr. Eduardo De Leon MD in [facility] 12/22/2020 14:02
--- NOTE | 2020-12-22 12:34 | HMH.EDGENADL ---
ED Disposition Clinical Impression: Septic arthritis Qualifiers: Septic arthritis location: knee Septic arthritis organism: staphylococcal Laterality: right Qualified Code(s): M00.061 - Staphylococcal arthritis, right knee Disposition: Admitted As Inpatient Condition on Discharge: Good Referrals: Haritha Almazan APRN [Primary Care Provider] - Time of Disposition: 16:39 - Critical Care Critical Care Time: No Attestation: On , the high probability of a clinically significant, sudden or life threatening deterioration of the following system(s) required my full and direct attention, intervention and personal management. The time I documented below is in addition to time spent performing reported procedures but includes the following listed in this critical care notation. Medical Decision Making - Medical Records Medical records reviewed: Yes: I reviewed the patient's medical records. - Guzman Inquiry Pt receiving controlled substance: No Vital Signs: 12/22/20 12:35 12/22/20 13:53 12/22/20 14:21 Temperature 97.8 F Temperature Source Oral Pulse Rate 61 56 L Pulse Rate [Right Radial] 67 Respiratory Rate 18 Blood Pressure 125/85 136/93 H Blood Pressure [Right Arm] 125/97 H Blood Pressure Mean [Right Arm] 106 Blood Pressure Source Automatic Cuff Blood Pressure Source [Right Arm] Automatic Cuff Blood Pressure Position Sitting Blood Pressure Position [Right Arm] Sitting 02 Sat by Pulse Oximetry 95 98 98 Oxygen Delivery Method Room Air 12/22/20 14:30 12/22/20 15:00 12/22/20 15:15 Temperature Temperature Source Pulse Rate 58 L 55 L 61 Pulse Rate [Right Radial] Respiratory Rate Blood Pressure 134/85 149/89 H 163/89 H Blood Pressure [Right Arm] Blood Pressure Mean [Right Arm] Blood Pressure Source Blood Pressure Source [Right Arm] Blood Pressure Position Blood Pressure Position [Right Arm] 02 Sat by Pulse Oximetry 97 98 99 Oxygen Delivery Method - Lab Data Lab results reviewed: Yes: I reviewed the patient's lab results. Lab Results 12/22/20 12:54: WBC 12.7 H, RBC 4.94, Hgb 15.3, Hct 44.5, MCV 90.2, MCH 31.0, MCHC 34.4, RDW 13.4, Plt Count 294, MPV 7.9, Neut % (Auto) 49.7, Lymph % (Auto) 40.9, [place] % (Auto) 3.7, Eos % (Auto) 4.9, Baso % (Auto) 0.8, Neut # (Auto) 6.3, Lymph # (Auto) 5.2 H, [place] # (Auto) 0.5, Eos # (Auto) 0.6 H, Baso # (Auto) 0.1, ESR 20 12/22/20 12:54: C-Reactive Protein 8.8 H 12/22/20 12:54: Uric Acid 7.5 Result diagrams: 12/22/20 12:54 Orders (Tests/Meds): ED MEDICATIONS Generic Name Dose Route Start Last Admin Trade Name Freq PRN Reason Stop Dose Admin Ceftriaxone Sodium 2 gm/ 100 mls @ 200 mls/hr 12/22/20 14:00 12/22/20 14:17 Sodium Chloride IV 01/05/21 13:59 200 mls/hr Q24H SUSANA Administration Protocol ORDERS Category Date Time Status Cell Ct. Synovial w/ Crystals Stat Lab 12/22/20 13:55 Received - Radiology Data #1 Image(s): Knee Image Reviewed: Yes I have reviewed radiologist's interpretation Preliminary Findings: Abnormal Mild effusion, no other abnormality Medical Decision Narrative: 60yo M evaluated for right knee pain, swelling, effusion. Concern for septic arthritis. See procedure note for details but arthrodesis completed. CBC shows elevated white blood cells. CRP is elevated at 8.8. ESR is pending at this time. Case d/w Dr. Muñiz at 1400. He request a uric acid level as well as a rapid Gram stain. If Gram stain is negative, he states he has no intention to proceed to the OR with the patient as septic arthritis is very rare. Gram stain shows gram-positive cocci in clusters. Dr. Muñiz is called and informed. He plans to proceed to the OR for washout. He request medicine to admit the patient. Case discussed with Dr. Cadet who agrees to admit the patient. All findings and plan discussed with the patient at bedside. General Adult HPI - General Stated complaint: Rt
[2020-12-22 13:02] LABS: Basophils # 0.1 K/mm3 (0-0.2); Basophils % 0.8 % (0.1-2.0); Eosinophils # 0.6 K/mm3 (0.0-0.4); Eosinophils % 4.9 % (0.1-12.0); Hematocrit 44.5 % (42.0-52.0); Hemoglobin 15.3 g/dL (14.1-18.0); Lymphocytes # 5.2 K/mm3 (0.7-4.5); Lymphocytes % 40.9 % (10-50); Mean Corpuscular HGB Conc 34.4 g/dL (31.8-35.4); Mean Corpuscular Volume 90.2 fl (80-94); Mean Platelet Volume 7.9 fl (7.4-10.4); Monocytes # 0.5 K/mm3 (0.1-1.0); Monocytes % 3.7 % (1.7-9.3); Neutrophils # 6.3 K/mm3 (1.8-7.8); Neutrophils % 49.7 % (37.0-80.0); Platelet Count 294 K/mm3 (142-424); Red Blood Count 4.94 M/mm3 (4.60-6.20); Red Cell Distribution Width 13.4 % (11.5-17.5); White Blood Count 12.7 K/mm3 (4.8-10.8)
[2020-12-22 13:14] LABS: C-Reactive Protein 8.8 mg/L (0-4)
[2020-12-22 13:34] LABS: Erythrocyte Sedimentation Rate 20 mm/hr (0-20)
--- NOTE | 2020-12-22 13:56 | PC.NURSE ---
JAY COELLO speaking with Dr. Muñiz
--- NOTE | 2020-12-22 14:23 | PC.NURSE ---
JAY COELLO speaking with Dr. Muñiz again at this time- Dr. Muñiz called back to speak with him
[2020-12-22 14:44] LABS: Uric Acid 7.5 mg/dl (3.5-8.5)
--- NOTE | 2020-12-22 15:28 | PC.NURSE ---
per mey in lab a cell count on synovial fluid is a send out lab, states they are working on gram stain at this time notified JAY COELLO
--- NOTE | 2020-12-22 16:23 | PC.NURSE ---
injection molding operator paging dr. bonilla who is fashion buyer for dr. conroy
--- NOTE | 2020-12-22 16:28 | PC.NURSE ---
AJY COELLO speaking with Dr Cadet
--- NOTE | 2020-12-22 16:31 | PC.NURSE ---
spoke with Brayan in pharmacy for Vancomycin consult. States to give pt Vancomycin 1750 mg per IV q18H
--- NOTE | 2020-12-22 16:35 | PC.NURSE ---
notified seasonal warehouse associate of admission
[2020-12-22 16:38] LABS: Coronavirus 19, PCR Not Detected (NotDetected); Influenza A, PCR Not Detected (NotDetected); Influenza B, PCR Not Detected (NotDetected)
--- NOTE | 2020-12-22 17:15 | PC.NURSE ---
report called to floor
--- NOTE | 2020-12-22 17:22 | PC.NURSE ---
Dr Muñiz at bedside
[2020-12-22 17:24] LABS: Chloride 106 mmol/L (98-107); Potassium 4.4 mmoL/L (3.5-5.1); Sodium 137 mmol/L (136-145)
--- NOTE | 2020-12-22 17:24 | PC.NURSE ---
dr pierre at bedside
--- NOTE | 2020-12-22 17:24 | PC.NURSE ---
DR KNOX AT
[2020-12-22 17:27] LABS: Anion Gap 14.4 mEq/L (5-15); Blood Urea Nitrogen 11 mg/dl (9-20); Calcium 9.1 mg/dl (8.4-10.2); Carbon Dioxide 21 mmol/L (22.0-30.0); Creatinine Clearance Estimated 115 mL/min (50-200); Estimated Glomerular Filt Rate 99 ml/min (>60); GFR (African American) 120 ML/MIN (>60); Glucose 131 mg/dl (74-100)
--- NOTE | 2020-12-22 18:06 | PC.NURSE ---
174: SPOKE TO Emeterio FERRARA RN, JAVIER, SHIP PILOT AND SIMONE, SURG. TECH TO INFORM THEM DR. KNOX WOULD LIKE TO TAKE PATIENT TO THE OR FOR A WASHOUT OF RIGHT KNEE.
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
--- NOTE | 2020-12-22 18:41 | HMH.ANESCL ---
[facility] Anesthesia Checklist - Patient Identification Patient Identification: Arm Band - Structural Data Admitted From: Home Planned Operative Procedure/s: Arthroscopic washout and debridement of right knee Consent for Planned Operative Procedure(s) Verified: Yes Verified Documents: Surgical Consent, History and Physical - NPO Status Verified Time NPO: 15:00 (coffee) - Additional verifications Anesthesia Reactions: No Hx Blood Transfusions: No - Airway Assessment C-Spine Mobility Assessed: Yes (mp2) TMJ Mobility Assessed: Yes Dentition: Edentulous - Neurological Assessment Level of Consciousness: Awake, Alert - Anesthesia Plan Anesthesia Risk discussed: Yes Anesthesia Plan: Verified ASA Class: III Anesthesia Type: General [facility] History I have reviewed the patient's past medical history: Yes Medical History: Reports:: Chronic Obstructive Pulmonary Disease (COPD), Gastroesophageal Reflux Disease(GERD), Hyperlipidemia, Hypertension, Peripheral Artery Disease Denies:: Cancer, Diabetes Mellitus Type 1, Diabetes Mellitus Type 2, Internal Pacemaker, MRSA, Seizures *Have you ever received a pneumonia vaccine?: No *Have you received a flu vaccine this season?: No Other Medical History: Reports: Hypothyroidism, Sinus Problems Anesthesia experience/problems:: nac Laterality Cases: Bilateral: Carpal Tunnel Release Other Surgeries: Yes: Cardiac Catheterization, Colonoscopy, Plastic Surgery, Sinus Surgery, Other. No: Pacemaker Amputation: No Fractures: Yes (FINGERS) - *Social History Smoking Status: Current every day smoker Tobacco Type: cigarettes # Packs/Day (cigarettes): 1 #Yrs smoked (if former smoker): 40 Alcohol Intake: current Alcohol Intake Frequency:: 3 or more drinks per day Substance Use Type: denies use *Occupational Status:: other Housing: house Household Members: spouse *Travel in the last 8 weeks: None Family Hx:: Heart Attack
--- NOTE | 2020-12-22 18:48 | PC.NURSE ---
Received report on pt and then was told pt was going to surgery from ED. Have not seen pt.
--- NOTE | 2020-12-22 20:43 | P.PN_ITS ---
[facility] Anesthesia Record Part I Intake, IV Amount: 1,100 Estimated blood loss (mL): 5 Urine output (mL): 0 Blood Pressure: 140/83 SaO2: 93 Pulse Rate: 57 Respiratory Rate: 16 Temperature: 97.8 F Patient is:: Drowsy, Stable Stable to PACU at:: 20:35
--- NOTE | 2020-12-22 21:10 | PC.NURSE ---
PT ARRIVED TO FLOOR VIA BED W/STAFF FROM OR AT 2109
--- NOTE | 2020-12-22 21:27 | PC.NURSE ---
2102-detailed report called to DEBBY Rosario 2107-pt transported to 2nd floor room 204 via hospital bed w/pat rails up and left in care of DEBBY Rosario with bed locked in lowest position, vss, pt stable, called pt's at this time and updated on pt's status
--- NOTE | 2020-12-22 21:38 | HMH.OPNOTE ---
Date of procedure: 12/22/20 Pre-op Diagnosis:: Septic arthritis, right knee Post-op Diagnosis:: Same Procedure performed:: Arthroscopic washout/debridement, right knee Surgeon:: Tony Muñiz MD [facility] Worker(s):: Ricarda Smart JACK MACHINE OPERATOR:: Nino Harry Anesthesia: LMA Estimated blood loss (mL): 5 Clinical Note:: Patient is a 60-year-old male who presented to the emergency department this afternoon with right knee pain and swelling. His symptoms started couple of days ago with pain localized to the anterior and medial aspect of the knee. He reports he sustained superficial abrasions to his knee 4 days ago after the knee was caught on a nail in his truck. He reports no other injury. No history of any previous knee surgery or problems. No history of any fevers, chills or rigors. No history of any other systemic symptoms concerning for a sepsis. No history of any distal tingling or numbness. He reports no other joint swelling or pain. No history of similar problems in the past. X-rays in the ER showed soft tissue swelling around the knee with small joint effusion. The knee was aspirated under aseptic precautions by the ER physician and Gram stain was positive for gram-positive cocci. Patient also had elevated white cell count and CRP with normal ESR. His past history includes peripheral arterial disease, GERD, hypertension, hyperlipidemia, tobacco abuse and alcoholism. Patient reports he has been trying to cut down on his tobacco use and stopped drinking alcohol couple of months ago. On examination of the right knee, there are 2 healing skin abrasions/superficial lacerations over the anteromedial aspect of the knee; these appear to be few days old; the skin is otherwise intact and normal. There is diffuse swelling around the knee joint; no erythema, ecchymosis or induration noted. There is 1 + knee effusion; patient has tenderness over anteromedial aspect of the knee joint. Knee range of movements is 5-110? of flexion. Terminal flexion is painful. Knee joint is ligamentously stable. Good muscle strength demonstrated with flexion and extension of the knee joint against resistance. Thigh and calf are soft and nontender. Dorsalis pedis and posterior tibial pulses are 1+ bilaterally. Capillary refill is somewhat sluggish; toes are warm and pink. Sensation is intact to light touch throughout. He has good range of active foot and ankle movements. On examination of the left knee, there is no tenderness. Knee range of movements is 0-130? of flexion. Knee joint is ligamentously stable. Distal neurovascular status is intact. Examination of both hip joints demonstrates good range of pain-free movements. Arthroscopic knee washout/debridement is indicated to drain the infective effusion, relieve the pain and improve function of the knee. Please refer to my consult note for full details. Operative findings:: Examination of the right knee under anesthesia, showed a stable knee joint. There were superficial skin abrasions from the injury few days ago and needle schofield from the joint aspiration in the ER. There is small amount of knee joint effusion. Knee range of motion is from 0-120? of flexion. Operative findings showed small amount of bloodstained effusion. A synovial fluid sample was obtained for microbiology. Diffuse grade 2 degenerative changes over the patellofemoral and lateral compartments. Both medial and lateral menisci were noted to be intact. The anterior cruciate ligament is also noted to be intact. No loose bodies were noted. Moderate synovitis and a small amount of debris was noted in the knee. Samples of synovial tissue were obtained to the suprapatellar pouch for histopathological examination and microbiology. Operative note:: Prior to the procedure the patient was met in the preoperative area and positively identified. A physical examination was performed and documented. The operative site and side was marked and initialed by me. I have discussed
[2020-12-23] VITALS (9 sets, daily range): BP systolic 117–155; BP diastolic 63–85; PULSE 60–74; RESP 16–19; TEMP 36.6–37; O2SAT 94–99; BMI 29.0
--- NOTE | 2020-12-23 02:58 | PC.NURSE ---
A&OX4. TOLERATING RA WELL. R KNEE ELEVATED T/O SHIFT, ICE PACK IN PLACE AND DRESSING CDI. PT HAS C/O PAIN X2 THUS FAR, TX WITH PRN MORPHINE. TOLERATING WELL-STATES IMPROVEMENT OF PAIN. PT HAS LARGE APPETITE. OKAY FOR PT TO EAT PER DR KNOX. PT HAS BEEN AWAKE MOST OF SHIFT, STATES THIS SIS NORMAL FOR HIM. VSS WILL CONTINUE TO MONITOR.
[2020-12-23 06:45] LABS: Basophils # 0.1 K/mm3 (0-0.2); Basophils % 0.3 % (0.1-2.0); Eosinophils % 0.2 % (0.1-12.0); Hematocrit 40.4 % (42.0-52.0); Hemoglobin 13.8 g/dL (14.1-18.0); Lymphocytes # 2.9 K/mm3 (0.7-4.5); Lymphocytes % 17.9 % (10-50); Mean Corpuscular HGB Conc 34.2 g/dL (31.8-35.4); Mean Corpuscular Hemoglobin 31.4 pg (27.0-31.2); Mean Corpuscular Volume 91.7 fl (80-94); Mean Platelet Volume 7.9 fl (7.4-10.4); Monocytes # 0.5 K/mm3 (0.1-1.0); Monocytes % 3.1 % (1.7-9.3); Neutrophils # 12.8 K/mm3 (1.8-7.8); Neutrophils % 78.5 % (37.0-80.0); Platelet Count 265 K/mm3 (142-424); Red Blood Count 4.41 M/mm3 (4.60-6.20); Red Cell Distribution Width 13.2 % (11.5-17.5); White Blood Count 16.3 K/mm3 (4.8-10.8)
[2020-12-23 06:50] LABS: Chloride 106 mmol/L (98-107); Potassium 4.4 mmoL/L (3.5-5.1); Sodium 137 mmol/L (136-145)
[2020-12-23 06:52] LABS: MANUAL DIFFERENTIAL MANUAL DIFFERENTIAL (MANUAL DIFF)
[2020-12-23 06:53] LABS: Anion Gap 11.4 mEq/L (5-15); Blood Urea Nitrogen 11 mg/dl (9-20); Calcium 8.6 mg/dl (8.4-10.2); Carbon Dioxide 24 mmol/L (22.0-30.0); Creatinine Clearance Estimated 94 mL/min (50-200); Estimated Glomerular Filt Rate 76 ml/min (>60); GFR (African American) 93 ML/MIN (>60); Glucose 132 mg/dl (74-100)
[2020-12-23 07:22] LABS: Lymphocytes % 17 % (10-50); Monocytes % 5 % (2-9); Neutrophils % 78 % (42-76); Platelet Estimate Normal; RBC Morphology Normal; Total Cells Counted 100
--- NOTE | 2020-12-23 07:23 | P.CONPHA_ITS ---
[facility] VTE Monitoring - Patient Demographics Admission date: 12/22/20 Report Date: 12/23/20 Time: 07:23 Allergies/Adverse Reactions: Patient Allergies NSAIDS (Non-Steroidal Anti-Inflamma [NSAIDS (NON-STEROIDAL ANTI-INFLAMMA] Allergy (Mild, Verified 11/26/20 09:49) Height: 1.7 m Weight: 83.716 kg Patient Problems: Current Active Problems (Last Updated 08/21/17 @ 14:44 by MAIA Velásquez) Septic arthritis (Acute) Septic arthritis of knee, right (Acute) PAD (peripheral artery disease) (Chronic) Hypertension (Chronic) Tobacco dependence (Chronic) Hyperlipidemia (Chronic ~08/21/17) - VTE Risk Labs: VTE Related Lab Results Hgb 13.8 g/dL (14.1-18.0) L 12/23/20 06:15 Hct 40.4 % (42.0-52.0) L 12/23/20 06:15 Plt Count 265 K/mm3 (142-424) 12/23/20 06:15 BUN 11 mg/dl (9-20) 12/23/20 06:20 Creatinine 1.00 mg/dl (0.66-1.25) D 12/23/20 06:20 Estimated Creat Clear 94 mL/min (50-200) 12/23/20 06:20 - Prophylaxis VTE Prophylaxis Ordered?: Yes Types of VTE Prophylaxis: IPCS Thigh High Location of Applied Device: Bilateral Lower Extremeties
--- NOTE | 2020-12-23 08:41 | HMH.HP ---
*Admission Date: 12/22/20 *Chief complaint: R Knee Pain *History of present illness: 60 YOM presented to [facility] ED for pain, warmth, swelling in R knee. He reports working on a trailer and scraping his knee on a screw 4 days previous, starting 2 days ago and right knee started swelling and become painful. When it became intolerable he presented to the emergency department. In the emergency department CBC revealed elevated white blood cell count, CRP elevated, ESR normal. Ortho was consulted and after a rapid Gram stain was positive for gram-positive cocci in clusters patient was taken to the OR for right knee washout. He does have a history of hyperlipidemia, tobacco abuse, and neuropathy. 12/22/20 R Knee XR: FINDINGS: No fracture or dislocation. No lytic or blastic change. There is normal mineralization. The joint spaces are well-preserved. No significant degenerative/arthritic changes. No erosive changes evident. There is a incompletely visualized femoral artery stent extending to the junction with the popliteal artery. Other findings:There is mild diffuse soft tissue swelling over the patella and medial aspect of the knee. There are no foreign body seen.. IMPRESSION: Mild diffuse soft tissue swelling anteriorly and medially, no acute bony abnormality seen Dictated by: Dr. Eduardo De Leon performed an Arthroscopic washout/debridement, right knee 60-year-old male patient sitting up in bed resting quietly with eyes open. He reports pain at a tolerable level, denies chest pain or shortness of breath during the night. Dressing to right knee is clean dry and intact he does have good motor and sensation to right lower extremity. He is currently receiving ceftriaxone and vancomycin IV. [facility] History I have reviewed the patient's past medical history: Yes Medical History: Reports:: Chronic Obstructive Pulmonary Disease (COPD), Gastroesophageal Reflux Disease(GERD), Hyperlipidemia, Hypertension, Peripheral Artery Disease Denies:: Cancer, Diabetes Mellitus Type 1, Diabetes Mellitus Type 2, Internal Pacemaker, MRSA, Seizures *Have you ever received a pneumonia vaccine?: No *Have you received a flu vaccine this season?: No Other Medical History: Reports: Hypothyroidism, Sinus Problems Anesthesia experience/problems:: nac Laterality Cases: Bilateral: Carpal Tunnel Release Other Surgeries: Yes: Cardiac Catheterization, Colonoscopy, Coronary Stent, Plastic Surgery, Sinus Surgery, Other. No: Pacemaker Amputation: No Fractures: Yes (FINGERS) - *Social History Smoking Status: Current every day smoker Tobacco Type: cigarettes # Packs/Day (cigarettes): 2 #Yrs smoked (if former smoker): 40 Alcohol Intake: former Alcohol Intake Frequency:: 0-2 drinks per day Substance Use Type: denies use *Occupational Status:: employed Housing: house Household Members: spouse *Travel in the last 8 weeks: None Family Hx:: No significant family history Review of Systems - Review of Systems Review of systems:: pertinent systems reviewed and negative unless documented below - Constitutional Denies anorexia, Denies fatigue - Eyes Denies blind spots, Denies loss of vision - ENT Denies abnormal hearing, Denies dizziness - *Cardiovascular Denies chest pain, Denies shortness of breath - *Respiratory Denies chest congestion, Denies shortness of breath - *Gastrointestinal Denies abdominal pain, Denies change in stools - *Musculoskeletal Reports abnormal walking, Reports joint pain, Reports joint swelling, Reports limited joint movement, Denies body aches, Denies neck pain Comments: Pain/swelling R Knee - Integumentary/Breasts Denies acne, Denies change in skin color, Denies new lesions - *Neurologic Reports abnormal walking, Denies abnormal hearing, Denies numbness, Denies tingling/numbness/burning sensations, Denies seizure-like activity - Psychiatric Denies behavioral changes, Denies change in appetite - End
--- NOTE | 2020-12-23 08:50 | HMH.PHAINT ---
MEDICATION RECONCILIATION COMPLETED ON PATIENT USING EXTERNAL FILL HISTORY FROM PHARMACY. -JOSUE SALAS, ALEJANDRAD
--- NOTE | 2020-12-23 09:25 | PC.NURSE ---
Dressing to right knee removed by Tu Philip APRN during morning rounds. Dressing was replaced using aseptic technique by myself using: xeroform, dry 4x4's, abd pad, soft roll and then lashaun wrap.
--- NOTE | 2020-12-23 11:27 | HMH.ORTHPN ---
Subjective Date: 12/23/20 Time: 07:45 Principal diagnosis: Septic arthritis, right knee Interval history: Patient is status post right knee arthroscopic washout/debridement, post op day #1. Patient is lying down in the bed and says he is is doing well. He reports some knee pain and says it's well-controlled with as needed pain medication. No history of any nausea or vomiting. No history of any cough, chest pain, shortness of breath or palpitations. Patient says he is eating and drinking well. No history of any distal tingling or numbness. No history of any fevers, chills or rigors. PN: Obj Ex Vital signs: Temp Pulse Resp BP Pulse Ox 98.2 F 62 19 142/85 H 95 12/23/20 07:32 12/23/20 07:32 12/23/20 07:32 12/23/20 07:32 12/23/20 07:32 Narrative: Laboratory Results - last 24 hr 12/22/20 12:45: Sodium 137, Potassium 4.4, Chloride 106, Carbon Dioxide 21 L, Anion Gap 14.4, BUN 11, Creatinine 0.80, Estimated Creat Clear 115, Estimated GFR 99, Est GFR ( Amer) 120, Glucose 131 H, Calcium 9.1 12/22/20 12:54: WBC 12.7 H, RBC 4.94, Hgb 15.3, Hct 44.5, MCV 90.2, MCH 31.0, MCHC 34.4, RDW 13.4, Plt Count 294, MPV 7.9, Neut % (Auto) 49.7, Lymph % (Auto) 40.9, [place] % (Auto) 3.7, Eos % (Auto) 4.9, Baso % (Auto) 0.8, Neut # (Auto) 6.3, Lymph # (Auto) 5.2 H, [place] # (Auto) 0.5, Eos # (Auto) 0.6 H, Baso # (Auto) 0.1, ESR 20 12/22/20 12:54: C-Reactive Protein 8.8 H 12/22/20 12:54: Uric Acid 7.5 12/22/20 16:35: SARS-CoV-2 (PCR) Not detected, Influenza A Untype (PCR) Not detected, Influenza Type B (PCR) Not detected 12/23/20 06:15: WBC 16.3 H D, RBC 4.41 L, Hgb 13.8 L, Hct 40.4 L, MCV 91.7, MCH 31.4 H, MCHC 34.2, RDW 13.2, Plt Count 265, MPV 7.9, Neut % (Auto) 78.5, Lymph % (Auto) 17.9, [place] % (Auto) 3.1, Eos % (Auto) 0.2, Baso % (Auto) 0.3, Neut # (Auto) 12.8 H, Lymph # (Auto) 2.9, [place] # (Auto) 0.5, Eos # (Auto) 0.0, Baso # (Auto) 0.1, Total Counted 100, Neutrophils % (Manual) 78 H, Lymphocytes % (Manual) 17, Monocytes % (Manual) 5, Platelet Estimate Normal, RBC Morphology Normal 12/23/20 06:20: Sodium 137, Potassium 4.4, Chloride 106, Carbon Dioxide 24, Anion Gap 11.4, BUN 11, Creatinine 1.00 D, Estimated Creat Clear 94, Estimated GFR 76, Est GFR ( Amer) 93 D, Glucose 132 H, Calcium 8.6 Microbiology 12/22/20 19:27 Knee,Right - Right Gram Stain - Final 12/22/20 19:27 Aspirate - Right Gram Stain - Final 12/22/20 13:55 Knee,Right - Other Gram Stain - Final Exam General appearance: alert, active, awake, no acute distress Cardiovascular: regular rate & rhythm, normal peripheral pulses Respiratory: No respiratory distress noted, speaks in full sentences ABD: soft and non tender Neuro: alert, awake, oriented x 3 Psych: normal mood and affect On examination of the lower extremities the limb lengths are equal. Thigh and calf are soft and nontender. On examination of the right knee the dressings are clean, dry and intact. No evidence of any bleeding or strikethrough noted. Distal pulses are 1+. Distal sensation is intact to light touch throughout. No motor deficits noted distally. Progress Note: A&P (1) Septic arthritis of knee, right Status: Acute (2) Hyperlipidemia Status: Chronic (3) Hypertension Status: Chronic (4) PAD (peripheral artery disease) Status: Chronic (5) Tobacco dependence Status: Chronic Assessment and Plan for All Diagnoses:: I have reviewed the clinical and operative findings and procedure performed with the patient. Patient is doing well and reports no problems. Patient can mobilize weightbearing as tolerated on the right lower extremity using assistive devices as needed. Continue IV antibiotics and changes to the antibiotic regimen to be made once culture results are available as needed in the light of clinical response. Continue medical management as per Dr. Greco.
--- NOTE | 2020-12-23 15:11 | PC.NURSE ---
Pt is alert and oriented x4. Lungs are clear, bowel sounds active x4. He is able to verbalize needs. Dressing to right knee replaced, see previous note. Incisions were well approximated and w/out drainage. He is weight bearing as tolerated per Dr Muñiz. Appetite is good, pt had family bring in take-out for him. Multiple requests for pain meds. He specifically asked for both morphine and lortab to be given at the same time. Pt instructed on appropriate pain med administration. He verbalized understanding. Will continue to monitor.
[2020-12-24 03:27] VITALS: BP 131/74; PULSE 57; RESP 16; TEMP 36.6; O2SAT 91
--- NOTE | 2020-12-24 04:51 | PC.NURSE ---
A&OX4. TOLERATING RA WELL. DRESSING TO R KNEE, CDI. ELEVATED T/O SHIFT. PT HAS NEEDED AROUND THE CLOCK PAIN MEDICATION PER MAR. PT HAS RESTED MAJORITY OF SHIFT. NO OTHER C/O THUS FAR. VSS WILL CONTINUE TO MONITOR.
[2020-12-24 05:00] VITALS: BMI 29.7
[2020-12-24 06:39] LABS: Basophils # 0.1 K/mm3 (0-0.2); Basophils % 0.6 % (0.1-2.0); Eosinophils # 0.5 K/mm3 (0.0-0.4); Hematocrit 38.2 % (42.0-52.0); Lymphocytes # 7.6 K/mm3 (0.7-4.5); Lymphocytes % 47.5 % (10-50); Mean Corpuscular Hemoglobin 30.6 pg (27.0-31.2); Mean Platelet Volume 7.9 fl (7.4-10.4); Monocytes # 0.6 K/mm3 (0.1-1.0); Monocytes % 3.8 % (1.7-9.3); Neutrophils # 7.2 K/mm3 (1.8-7.8); Platelet Count 234 K/mm3 (142-424); Red Blood Count 4.24 M/mm3 (4.60-6.20); Red Cell Distribution Width 13.2 % (11.5-17.5); White Blood Count 15.9 K/mm3 (4.8-10.8)
[2020-12-24 06:45] LABS: MANUAL DIFFERENTIAL MANUAL DIFFERENTIAL (MANUAL DIFF)
[2020-12-24 06:48] LABS: Chloride 106 mmol/L (98-107); Sodium 138 mmol/L (136-145)
[2020-12-24 06:49] LABS: Potassium 4.4 mmoL/L (3.5-5.1)
[2020-12-24 06:52] LABS: Anion Gap 10.4 mEq/L (5-15); Blood Urea Nitrogen 18 mg/dl (9-20); Calcium 8.3 mg/dl (8.4-10.2); Carbon Dioxide 26 mmol/L (22.0-30.0); Creatinine Clearance Estimated 97 mL/min (50-200); Estimated Glomerular Filt Rate 76 ml/min (>60); GFR (African American) 93 ML/MIN (>60); Glucose 106 mg/dl (74-100)
[2020-12-24 07:09] LABS: Eosinophils % 2 % (0-3); Lymphocytes % 48 % (10-50); Monocytes % 6 % (2-9); Neutrophils % 44 % (42-76); Platelet Estimate Normal; RBC Morphology Normal; Total Cells Counted 100
[2020-12-24 08:00] VITALS: BP 122/61; PULSE 52; RESP 18; TEMP 36.6; O2SAT 92
--- NOTE | 2020-12-24 08:32 | XR_ITS ---
PROCEDURE: XR CHEST PORTABLE PICC PLAC CLINICAL HISTORY: Confirm PICC line placement COMPARISON: CR CXR CHEST(2 VIEWS-NOT PORTABLE) from 08/02/2016 CR CXR2V XR chest 2V from 08/27/2017 CR XR CHEST PORTABLE from 08/19/[address] CHEST WO CON from 03/19/2020 FINDINGS: Right upper extremity PICC line has been inserted. The tip is in the region of the SVC. Unremarkable cardiovascular structures. The lungs are clear without infiltrates, suspicious nodules, or pleural effusions. No acute bony abnormalities. IMPRESSION: Status post right upper extremity PICC line insertion with the tip in the region the SVC. Dictated by: Thomas Will MD 12/24/2020 15:18 Thomas Will MD in [facility] 12/24/2020 15:18
--- NOTE | 2020-12-24 08:36 | HMH.ACPN2 ---
Internal Medicine - PN: Subj *Date: 12/24/20 *Time: 08:36 Interval history: 60-year-old male patient sitting up in bed resting quietly, he denies any shortness of breath or chest pain during night. He does report some right knee pain currently, will inform nursing of need for as needed pain meds. Is actually complaining of reflux symptoms we will restart his reflux medications from home. He will be on IV antibiotics for multiple weeks post discharge will order PICC line today. Exam Vital signs and Labs for Last 24 Hours: Temp Pulse Resp BP Pulse Ox 97.9 F 52 L 18 122/61 92 L 12/24/20 08:00 12/24/20 08:00 12/24/20 08:00 12/24/20 08:00 12/24/20 08:00 Laboratory Results - last 24 hr 12/24/20 06:29: WBC 15.9 H, RBC 4.24 L, Hgb 13.0 L, Hct 38.2 L, MCV 90.0, MCH 30.6, MCHC 34.0, RDW 13.2, Plt Count 234, MPV 7.9, Neut % (Auto) 45.0, Lymph % (Auto) 47.5, [place] % (Auto) 3.8, Eos % (Auto) 3.0, Baso % (Auto) 0.6, Neut # (Auto) 7.2, Lymph # (Auto) 7.6 H, [place] # (Auto) 0.6, Eos # (Auto) 0.5 H, Baso # (Auto) 0.1, Total Counted 100, Neutrophils % (Manual) 44, Lymphocytes % (Manual) 48, Monocytes % (Manual) 6, Eosinophils % (Manual) 2, Platelet Estimate Normal, RBC Morphology Normal 12/24/20 06:29: Sodium 138, Potassium 4.4, Chloride 106, Carbon Dioxide 26, Anion Gap 10.4, BUN 18 D, Creatinine 1.00, Estimated Creat Clear 97, Estimated GFR 76, Est GFR ( Amer) 93, Glucose 106 H, Calcium 8.3 L I & O for Last 24 hours: Intake & Output 12/21/20 12/22/20 12/23/20 12/24/20 23:59 23:59 23:59 23:59 Intake Total 1100 / 1100 1462 / 1462 480 / 480 Output Total 500 / 500 600 / 850 250 / 250 Balance 600 / 600 862 / 612 230 / 230 Weight 181 lb 184 lb 9 oz 189 lb 2 oz Microbiology Reports for the Last 24 Hours: Microbiology 12/22/20 19:27 Aspirate - Right Gram Stain - Final 12/22/20 19:27 Aspirate - Right Body Fluid Culture - Preliminary NO GROWTH AFTER 24 HOURS 12/22/20 19:27 Knee,Right - Right Gram Stain - Final 12/22/20 19:27 Knee,Right - Right Surgical Biopsy Culture - Preliminary NO GROWTH AFTER 24 HOURS - Constitutional no acute distress - *Routine HEENT Exam Head: Present: normocephalic Eye: Present: EOMI ENT: Present: mucous membranes moist - *Routine Neck Exam Present: trachea midline. Absent: tracheal deviation - *Routine Respiratory Exam Present: CTA bilaterally. Absent: accessory muscle use - *Routine Cardiovascular Exam Present: RRR - *Routine Abdominal Exam Present: soft, normoactive bowel sounds. Absent: tenderness, firm - *Routine Extremities Exam Present: edema, pulses intact. Absent: cyanosis, full ROM, calf tenderness - *Routine Skin Exam Present: warm, wounds. Absent: intact, erythema, jaundice Comments: Facial scarring Drsg R Knee C/D/I - *Routine Neurological Exam Present: alert, oriented X3. Absent: motor deficit, altered mental status - Routine Psychiatric Exam Present: normal affect, normal thought process. Absent: auditory hallucinations, visual hallucinations Assessment and Plan (1) Septic arthritis of knee, right Status: Acute Category: Medical Code(s): M00.9 - Pyogenic arthritis, unspecified (2) Hyperlipidemia Status: Chronic Qualifiers: Hyperlipidemia type: mixed hyperlipidemia Qualified Code(s): E78.2 - Mixed hyperlipidemia Category: Medical Code(s): E78.5 - Hyperlipidemia, unspecified (3) Hypertension Status: Chronic Qualifiers: Hypertension type: essential hypertension Qualified Code(s): I10 - Essential (primary) hypertension Category: Medical Code(s): I10 - Essential (primary) hypertension (4) PAD (peripheral artery disease) Status: Chronic Category: Medical Code(s): I73.9 - Peripheral vascular disease, unspecified (5) Tobacco dependence Status: Chronic Category: Medical Code(s): F17.200 - Nicotine dependence, unspecifie
--- NOTE | 2020-12-24 08:51 | PC.NURSE ---
Called pre-op and spoke to Nneka, states she will let Tyrone know of need for PICC line.
--- NOTE | 2020-12-24 08:55 | SW/DCPLANNER ---
Addendum entered by [facility] 12/24/20 13:42: Patient is planned to discharge home tomorrow. Patient will receive first home dose on Sunday at 1PM. I will inform [facility] and [facility] of these changes. I spoke with patients nurse (Genet) regarding plans and she will inform patient. Cordelia with [facility] stated everything is good to go for patient to receive first home dose on Sunday at 1PM. Patient will have family available to be taught how to administer medication. Patient will discharge home tomorrow after IV medication at 1PM. Addendum entered by [facility] 12/24/20 13:38: Cordelia with [facility] has confirmed that services will begin for this patient tomorrow. I have made patients nurse (Genet) aware of [facility] [employer] phone number incase patient does not discharge tomorrow. [facility] Addendum entered by [facility] 12/24/20 13:31: CORRECTION: Dapto first dose at home will be tomorrow at 3PM. Patient will receive first dose will be this evening inpatient. Addendum entered by [facility] 12/24/20 12:54: Per nursing (Genet) patients first dose of Dapto will be tomorrow at 3PM. I have informed patient and [facility]. I will inform [facility] once I follow up with referral. Addendum entered by [facility] 12/24/20 11:08: Echo with [facility] has stated that this patients medications will be covered at 100%. I will inform this patient and fax patient information/order to [facility] once patient is stable for discharge. Addendum entered by [facility] 12/24/20 10:25: Deirdre with [facility] has stated that rolling walker will be delivered to patients room today. Original Note: This patient will need jail IV antibiotics: Dapto for approx. four weeks. I spoke with patient regarding discharge plans: home health vs outpatient [facility]. Patient stated that he [facility]. Patient stated that his would be able to administer home IV antibiotics. I will fax patient information/order to Dapto to [facility] for out of pocket expense. I will set patient up with [facility] at time of discharge. Discharge date is unknown at this time. PICC line will be placed today. I will also fax patient information/order to [facility] for a rolling walker.
[2020-12-24 09:00] VITALS: BP 140/66; PULSE 65; RESP 18; TEMP 36.6; O2SAT 93
--- NOTE | 2020-12-24 10:10 | PC.NURSE ---
Patient will need a rolling walker rather than a cane d/t gait and mobility issues.
--- NOTE | 2020-12-24 13:44 | HMH.ORTHPN ---
Subjective Date: 12/24/20 Time: 12:15 Principal diagnosis: Septic arthritis, right knee Interval history: Patient is status post right knee arthroscopic washout/debridement, post op day #2. Patient is lying down in the bed and says he is is doing well. He reports very little knee pain and says it's well-controlled with as needed pain medication. No history of any nausea or vomiting. No history of any cough, chest pain, shortness of breath or palpitations. Patient says he is eating and drinking well. No history of any distal tingling or numbness. No history of any fevers, chills or rigors. He says he has been mobilizing well with full weightbearing on the right lower extremity. PN: Obj Ex Vital signs: Temp Pulse Resp BP Pulse Ox 97.9 F 52 L 18 122/61 92 L 12/24/20 08:00 12/24/20 08:00 12/24/20 08:00 12/24/20 08:00 12/24/20 08:00 Narrative: Laboratory Results - last 24 hr 12/24/20 06:29: WBC 15.9 H, RBC 4.24 L, Hgb 13.0 L, Hct 38.2 L, MCV 90.0, MCH 30.6, MCHC 34.0, RDW 13.2, Plt Count 234, MPV 7.9, Neut % (Auto) 45.0, Lymph % (Auto) 47.5, [place] % (Auto) 3.8, Eos % (Auto) 3.0, Baso % (Auto) 0.6, Neut # (Auto) 7.2, Lymph # (Auto) 7.6 H, [place] # (Auto) 0.6, Eos # (Auto) 0.5 H, Baso # (Auto) 0.1, Total Counted 100, Neutrophils % (Manual) 44, Lymphocytes % (Manual) 48, Monocytes % (Manual) 6, Eosinophils % (Manual) 2, Platelet Estimate Normal, RBC Morphology Normal 12/24/20 06:29: Sodium 138, Potassium 4.4, Chloride 106, Carbon Dioxide 26, Anion Gap 10.4, BUN 18 D, Creatinine 1.00, Estimated Creat Clear 97, Estimated GFR 76, Est GFR ( Amer) 93, Glucose 106 H, Calcium 8.3 L Microbiology 12/22/20 19:27 Aspirate - Right Gram Stain - Final 12/22/20 19:27 Aspirate - Right Body Fluid Culture - Preliminary NO GROWTH AFTER 24 HOURS 12/22/20 19:27 Knee,Right - Right Gram Stain - Final 12/22/20 19:27 Knee,Right - Right Surgical Biopsy Culture - Preliminary NO GROWTH AFTER 24 HOURS 12/22/20 13:55 Knee,Right - Other Gram Stain - Final Exam General appearance: alert, active, awake, no acute distress Cardiovascular: regular rate & rhythm, normal peripheral pulses Respiratory: No respiratory distress noted, speaks in full sentences ABD: soft and non tender Neuro: alert, awake, oriented x 3 Psych: normal mood and affect On examination of the right knee, the portals are clean, dry and healthy. I have removed the surgical dressings and applied Band-Aids to cover the portals. The portals are healthy. There is some ecchymosis, minimal swelling and tenderness over the arthroscopic portals. No erythema, discharge or bleeding noted. There is mild swelling around the knee joint as to be expected. There is trace of knee effusion. Knee range of movements is 0-120 degrees of flexion. Patient is able to actively straight leg raise and has good quadriceps activation. Extensor mechanism is intact. Thigh and calf are soft and non-tender. Sensation is intact to light touch throughout. Normal motor function distally. Dorsalis pedis and posterior tibial pulses are 1+. No signs of DVT or compartment syndrome are noted. Progress Note: A&P (1) Septic arthritis of knee, right Status: Acute (2) Hyperlipidemia Status: Chronic (3) Hypertension Status: Chronic (4) PAD (peripheral artery disease) Status: Chronic (5) Tobacco dependence Status: Chronic Assessment and Plan for All Diagnoses:: I have reviewed the clinical findings and progress with the patient. Patient is doing well and reports no problems. Patient is mobilizing well weightbearing on the right lower extremity. Culture results have been negative at 24 hours. Continue IV antibiotics and changes to the antibiotic regimen to be made once culture results are available as needed in the light of clinical response. From an orthopedic standpoint, if culture results are negative at 48 hours, patient can be
[2020-12-24 15:59] VITALS: BP 125/65; PULSE 60; RESP 21; TEMP 36.8; O2SAT 94
[2020-12-24 17:39] LABS: Clarity,Fluid Cloudy (Clear); Color,Fluid Yellow (Yellow); Eosinophils,Fluid 0 % (Not Estab.); Lymphocytes,Fluid 48 % (Not Estab.); Macrophages,Fluid 49 % (Not Estab.); Nucleated cells, Syn. Fluid 5745 cells/uL (0-200); Polys,Fluid 3 % (Not Estab.); RBC,Fluid 13000 /uL (Not Estab.)
--- NOTE | 2020-12-24 17:57 | PC.NURSE ---
Pt has c/o pain in rt knee multiple times this shift. Pt has been medicated per AUG. PICC line insertion this shift. PICC line remains patent and intact. Pt has had no other complaints this shift. Will continue to monitor.
[2020-12-24 20:00] VITALS: BP 140/66; PULSE 65; RESP 18; TEMP 36.6; O2SAT 93
--- NOTE | 2020-12-25 03:49 | PC.NURSE ---
Patient A&Ox4. VSS stable. Patient complained of pain and pain controlled with PO and toradol pain meds. Patient ambulating to bathroom independently. New bandaids applied to Right knee cap. Patient verbalizes no further concern.
[2020-12-25 04:00] VITALS: BP 143/55; PULSE 47; RESP 18; TEMP 36.6; O2SAT 96
[2020-12-25 05:00] VITALS: BMI 28.5
[2020-12-25 05:49] LABS: Basophils # 0.1 K/mm3 (0-0.2); Basophils % 0.9 % (0.1-2.0); Eosinophils # 0.6 K/mm3 (0.0-0.4); Eosinophils % 3.9 % (0.1-12.0); Hematocrit 39.7 % (42.0-52.0); Hemoglobin 13.6 g/dL (14.1-18.0); Lymphocytes # 7.2 K/mm3 (0.7-4.5); Lymphocytes % 47.1 % (10-50); Mean Corpuscular HGB Conc 34.3 g/dL (31.8-35.4); Mean Corpuscular Hemoglobin 31.2 pg (27.0-31.2); Mean Corpuscular Volume 90.8 fl (80-94); Mean Platelet Volume 7.7 fl (7.4-10.4); Monocytes # 0.7 K/mm3 (0.1-1.0); Monocytes % 4.8 % (1.7-9.3); Neutrophils # 6.6 K/mm3 (1.8-7.8); Neutrophils % 43.4 % (37.0-80.0); Platelet Count 259 K/mm3 (142-424); Red Blood Count 4.37 M/mm3 (4.60-6.20); Red Cell Distribution Width 13.2 % (11.5-17.5); White Blood Count 15.3 K/mm3 (4.8-10.8)
[2020-12-25 05:53] LABS: MANUAL DIFFERENTIAL MANUAL DIFFERENTIAL (MANUAL DIFF)
[2020-12-25 05:58] LABS: Anion Gap 9.6 mEq/L (5-15); Blood Urea Nitrogen 19 mg/dl (9-20); Calcium 8.5 mg/dl (8.4-10.2); Carbon Dioxide 30 mmol/L (22.0-30.0); Chloride 102 mmol/L (98-107); Creatinine Clearance Estimated 84 mL/min (50-200); Estimated Glomerular Filt Rate 69 ml/min (>60); GFR (African American) 83 ML/MIN (>60); Glucose 96 mg/dl (74-100); Potassium 4.6 mmoL/L (3.5-5.1); Sodium 137 mmol/L (136-145)
[2020-12-25 06:21] LABS: Eosinophils % 2 % (0-3); Lymphocytes % 32 % (10-50); Monocytes % 3 % (2-9); Neutrophils % 60 % (42-76); Platelet Estimate Normal; RBC Morphology Normal; Total Cells Counted 100
[2020-12-25 07:32] VITALS: BP 130/75; PULSE 53; RESP 17; TEMP 36.7; O2SAT 95
[2020-12-25 08:00] VITALS: O2SAT 95
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
--- NOTE | 2020-12-27 12:41 | HMH.ANESII ---
[facility] Anesthesia Record Part II Discharge Time: 21:05 Destination: Medical Surgical Department PACU nurse assessment reviewed?: Yes Patient Condition:: Good Anesthesia Complications:: None Swallowing reflex intact?: Yes Cyanosis?: No Blood Pressure: 140/85 Pulse Rate: 61 Temperature: 97.2 F Mental Status: Alert & Oriented Pain level:: 0 Nausea and/or vomitting:: None Intake, IV Amount: 0
[2020-12-27 12:42] VITALS: BP 140/85; PULSE 61; TEMP 36.2
== END 2020-12-25 13:10 | disposition home health service (06) | DRG 487 ==
LOC: ER 16:39 → 2ND 16:54
PROVIDERS: Nurse Practitioner Family; Orthopaedic Surgery; Admitting Provider Internal Medicine Adolescent Medicine; Emergency Provider Family Medicine; PCP Nurse Practitioner Family; Visit Provider Emergency Medicine
PROC: 0SBC4ZZ Excision of Right Knee Joint, Percutaneous Endoscopic Approach (ICD-10-PCS; principal; 2020-12-22 19:00)
DX: M00.9 Pyogenic arthritis, unspecified (principal); M25.461 Effusion, right knee; M65.861 Other synovitis and tenosynovitis, right lower leg; S80.211A Abrasion, right knee, initial encounter; F17.210 Nicotine dependence, cigarettes, uncomplicated; Z79.899 Other long term (current) drug therapy; I10 Essential (primary) hypertension; K21.9 Gastro-esophageal reflux disease without esophagitis; Z79.01 Long term (current) use of anticoagulants; G62.9 Polyneuropathy, unspecified; W45.0XXA Nail entering through skin, initial encounter; W27.8XXA Contact with other nonpowered hand tool, initial encounter
CPT/HCPCS: 20610; 29871; 36415; 36569; 71045; 73562; 80048; 84550; 85007; 85025; 85651; 86140; 87070; 87077; 87186; 87205; 88305; 89051; 96365; 96375; 99284; C1751; J0878; J2405; J3370; U0003

== ENCOUNTER → 2020-12-27 12:33 | Outpatient (CLI) | payer BC, SELFPAY ==
[2020-12-27 12:49] LABS: Basophils # 0.1 K/mm3 (0-0.2); Eosinophils # 0.8 K/mm3 (0.0-0.4); Eosinophils % 5.8 % (0.1-12.0); Hematocrit 46.5 % (42.0-52.0); Hemoglobin 15.4 g/dL (14.1-18.0); Lymphocytes # 4.9 K/mm3 (0.7-4.5); Lymphocytes % 35.4 % (10-50); Mean Corpuscular HGB Conc 33.1 g/dL (31.8-35.4); Mean Corpuscular Hemoglobin 30.1 pg (27.0-31.2); Mean Corpuscular Volume 90.9 fl (80-94); Mean Platelet Volume 7.9 fl (7.4-10.4); Monocytes # 0.7 K/mm3 (0.1-1.0); Monocytes % 4.8 % (1.7-9.3); Neutrophils # 7.4 K/mm3 (1.8-7.8); Neutrophils % 53.2 % (37.0-80.0); Platelet Count 291 K/mm3 (142-424); Red Blood Count 5.11 M/mm3 (4.60-6.20); Red Cell Distribution Width 13.4 % (11.5-17.5); White Blood Count 13.9 K/mm3 (4.8-10.8)
[2020-12-27 13:01] LABS: Alanine Aminotransferase 78 U/L (12-78); Albumin/Globulin Ratio 1.3 (1.1-1.8); Alkaline Phosphatase 86 U/L (38-126); Anion Gap 12.1 mEq/L (5-15); Aspartate Amino Transferase 58 U/L (17-59); Bilirubin,Total 0.6 mg/dl (0.2-1.3); Blood Urea Nitrogen 12 mg/dl (9-20); Calcium 9.1 mg/dl (8.4-10.2); Carbon Dioxide 26 mmol/L (22.0-30.0); Chloride 104 mmol/L (98-107); Creatine Kinase 32 U/L (55-170); Estimated Glomerular Filt Rate 86 ml/min (>60); GFR (African American) 105 ML/MIN (>60); Globulin 3.1 g/dL (1.3-3.2); Glucose 122 mg/dl (74-100); Potassium 4.1 mmoL/L (3.5-5.1); Sodium 138 mmol/L (136-145); Total Protein,Serum 7.1 g/dl (6.3-8.2)
== END ==
PROVIDERS: Visit Provider Orthopaedic Surgery
DX: M00.9 Pyogenic arthritis, unspecified (principal); M25.561 Pain in right knee; M25.461 Effusion, right knee
CPT/HCPCS: 80053; 82550; 85025

== ENCOUNTER 2020-12-30 13:42 | Emergency (ER) | payer BC, SELFPAY ==
[2020-12-30 13:45] VITALS: BP 146/89; PULSE 60; RESP 18; TEMP 36.5; O2SAT 98; BMI 28.3
--- NOTE | 2020-12-30 14:26 | HMH.EDUTC ---
[facility] Disposition Clinical Impression: Knee swelling Disposition: Home, Self-Care Condition on Discharge: Good Additional Instructions: Follow up with Dr Muñiz tomorrmaty as scheduled Straight to ER if any fever, chills, body aches, worsening of redness or swelling or any drainage Return if needed Continue following orders per Dr Muñiz Referrals: Haritha Almazan APRN [Primary Care Provider] - Time of Disposition: 14:32 Medical Decision Making - Guzman Inquiry Pt receiving controlled substance: No Guzman was queried for this patient: No Vital Signs: 12/30/20 13:45 12/30/20 14:37 Temperature 97.7 F 97.7 F Temperature Source Oral Pulse Rate 60 Pulse Rate [Right Brachial] 60 Respiratory Rate 18 18 Blood Pressure 146/89 H Blood Pressure [Left Arm] 146/89 H Blood Pressure Mean [Left Arm] 108 Blood Pressure Source [Left Arm] Automatic Cuff Blood Pressure Position [Left Arm] Sitting 02 Sat by Pulse Oximetry 98 Oxygen Delivery Method Room Air Medical Decision Narrative: Discussed with patient and due to being less than 30 days post op we would have to transfer him to the ED for further treatment and evaluation Patient declined and refused transfer States that he has appointment with Dr Muñiz tomorrmaty and would just see him Patient educated on risks associated with leaving if his infection was not improving on IV antibiotics and he still refused transfer advised he would follow up with Dr Muñiz tomorrmaty Patient verbalized understanding and states that he still does not want to go to the ED and would follow up tomorrow and left the [facility] HPI - General Stated complaint: possible infection surgical site rt knee Time Seen by Provider: 12/30/20 14:26 Mode of Arrival: Ambulatory Source of Information: Patient Limitations: No Limitations Description of Symptoms (Recalled from Triage Doc. by RN): PATIENT C/O REDNESS SWELLING TO RIGHT KNEE. SURGERY FOR SEPTIC KNEE LAST WEEK. PATIENT CURRENTLY ON IV ANTIBIOTICS DAILY HEENT Symptoms (Recalled from RN notes): No Resp Symptoms (Recalled from RN notes): No Skin Symptoms (Recalled from RN notes): No MS Symptoms (Recalled from RN notes): Yes Functional Status (Recalled from RN notes): WNL - History of Present Illness Provider Complaint: Patient states that he is on IV antibiotics after he had surgery last week for septic knee States that his knee has been swollen and at times he thought it may have felt a little warm and looked red around the sutures States that he was worried that it may be infected and wanted to get it checked - Related Data Home Medications Medication Instructions Recorded Confirmed aspirin 81 mg tablet,delayed 81 mg PO DAILY 08/12/19 12/22/20 release ergocalciferol (vitamin D2) 1,250 1,250 mcg PO WEEKLY cap 07/12/20 12/22/20 mcg (50,000 unit) capsule loratadine 10 mg tablet 10 mg PO DAILY tab 07/12/20 12/22/20 simvastatin 10 mg tablet 5 mg PO HS tab 07/12/20 12/22/20 cyclobenzaprine 10 mg tablet 10 mg PO BIDP PRN tab 11/09/20 12/23/20 esomeprazole magnesium 20 mg 20 mg PO DAILY cap 11/09/20 12/22/20 capsule,delayed release Isosorbide Mononitrate [Isosorbide 30 mg PO DAILY 12/22/20 12/22/20 Mononitrate ER] Ropinirole HCl 1 - 2 mg PO HS 12/22/20 12/23/20 Rivaroxaban [Xarelto 2.5mg Tab*] 2.5 mg PO BID 12/23/20 12/23/20 Metoclopramide HCl [Metoclopramide 10 mg PO ACHS 12/24/20 12/24/20 10mg Tablet] Previous Rx's Medication Instructions Recorded albuterol sulfate 90 mcg/actuation 1 inh INHALATION QID PRN #8 g 06/16/20 aerosol inhaler promethazine 25 mg tablet 25 mg PO TID #90 tab 11/26/20 DAPTOmycin [Cubicin 500mg vial] 500 mg IV 1300 vial 12/25/20 Docusate Sodium [Docusate Sodium 100 mg PO DAILY cap 12/25/20 100mg Cap] Nicotine [Nicoderm 21mg/24hr 21 mg TD DAILYP PRN #30 patch.td24 12/25/20 patch] hydrocodone 5 mg-acetaminophen 325 1 tab PO Q6H PRN #30 tab 12/27/20 mg tablet hydrocodone 7.5 mg-
[2020-12-30 14:37] VITALS: BP 146/89; PULSE 60; RESP 18; TEMP 36.5; O2SAT 98
== END 2020-12-30 14:38 | disposition home or self-care (01) ==
PROVIDERS: Emergency Provider Nurse Practitioner; PCP Nurse Practitioner Family
DX: R60.0 Localized edema (principal); M00.9 Pyogenic arthritis, unspecified; K21.9 Gastro-esophageal reflux disease without esophagitis; J44.9 Chronic obstructive pulmonary disease, unspecified; E78.5 Hyperlipidemia, unspecified; I10 Essential (primary) hypertension; E03.9 Hypothyroidism, unspecified; F17.210 Nicotine dependence, cigarettes, uncomplicated; Z79.899 Other long term (current) drug therapy

== ENCOUNTER → 2020-12-31 14:41 | Outpatient (CLI) | payer BC, SELFPAY ==
[2020-12-31 15:28] LABS: Basophils # 0.1 K/mm3 (0-0.2); Eosinophils # 0.6 K/mm3 (0.0-0.4); Eosinophils % 4.2 % (0.1-12.0); Hematocrit 43.4 % (42.0-52.0); Hemoglobin 14.9 g/dL (14.1-18.0); Lymphocytes # 6.4 K/mm3 (0.7-4.5); Lymphocytes % 45.6 % (10-50); Mean Corpuscular HGB Conc 34.4 g/dL (31.8-35.4); Mean Corpuscular Hemoglobin 30.7 pg (27.0-31.2); Mean Corpuscular Volume 89.1 fl (80-94); Mean Platelet Volume 8.7 fl (7.4-10.4); Monocytes # 0.8 K/mm3 (0.1-1.0); Monocytes % 5.5 % (1.7-9.3); Neutrophils # 6.2 K/mm3 (1.8-7.8); Neutrophils % 43.8 % (37.0-80.0); Platelet Count 329 K/mm3 (142-424); Red Blood Count 4.87 M/mm3 (4.60-6.20); Red Cell Distribution Width 13.3 % (11.5-17.5)
[2020-12-31 15:52] LABS: C-Reactive Protein 21.8 mg/L (0-4)
[2020-12-31 16:12] LABS: Erythrocyte Sedimentation Rate 20 mm/hr (0-20)
== END ==
PROVIDERS: Visit Provider Orthopaedic Surgery
DX: M00.9 Pyogenic arthritis, unspecified (principal)
CPT/HCPCS: 36415; 85025; 85651; 86140

== ENCOUNTER → 2021-01-04 13:25 | Outpatient (CLI) | payer BC, SELFPAY ==
[2021-01-04 13:39] LABS: Basophils # 0.2 K/mm3 (0-0.2); Eosinophils # 0.6 K/mm3 (0.0-0.4); Eosinophils % 3.8 % (0.1-12.0); Hematocrit 41.7 % (42.0-52.0); Hemoglobin 14.4 g/dL (14.1-18.0); Lymphocytes % 41.1 % (10-50); Mean Corpuscular HGB Conc 34.7 g/dL (31.8-35.4); Mean Corpuscular Hemoglobin 31.3 pg (27.0-31.2); Mean Corpuscular Volume 90.3 fl (80-94); Mean Platelet Volume 8.3 fl (7.4-10.4); Monocytes # 0.7 K/mm3 (0.1-1.0); Monocytes % 4.5 % (1.7-9.3); Neutrophils # 7.3 K/mm3 (1.8-7.8); Neutrophils % 49.6 % (37.0-80.0); Platelet Count 340 K/mm3 (142-424); Red Blood Count 4.61 M/mm3 (4.60-6.20); Red Cell Distribution Width 13.5 % (11.5-17.5); White Blood Count 14.6 K/mm3 (4.8-10.8)
[2021-01-04 13:43] LABS: Chloride 105 mmol/L (98-107); Sodium 138 mmol/L (136-145)
[2021-01-04 13:46] LABS: Alanine Aminotransferase 89 U/L (12-78); Albumin Level 4.2 g/dl (3.5-5.0); Albumin/Globulin Ratio 1.3 (1.1-1.8); Alkaline Phosphatase 97 U/L (38-126); Aspartate Amino Transferase 48 U/L (17-59); Bilirubin,Total 0.5 mg/dl (0.2-1.3); Blood Urea Nitrogen 9 mg/dl (9-20); Carbon Dioxide 24 mmol/L (22.0-30.0); Creatine Kinase 54 U/L (55-170); Estimated Glomerular Filt Rate 99 ml/min (>60); GFR (African American) 120 ML/MIN (>60); Globulin 3.2 g/dL (1.3-3.2); Glucose 122 mg/dl (74-100); Total Protein,Serum 7.4 g/dl (6.3-8.2)
== END ==
PROVIDERS: Visit Provider Orthopaedic Surgery
DX: M00.9 Pyogenic arthritis, unspecified (principal)
CPT/HCPCS: 80053; 82550; 85025

== ENCOUNTER 2021-01-07 14:04 | Outpatient (CLI) | payer BC, SELFPAY ==
[2021-01-07 14:15] LABS: Basophils # 0.1 K/mm3 (0-0.2); Eosinophils # 0.5 K/mm3 (0.0-0.4); Eosinophils % 3.8 % (0.1-12.0); Hematocrit 42.4 % (42.0-52.0); Hemoglobin 14.6 g/dL (14.1-18.0); Lymphocytes # 5.5 K/mm3 (0.7-4.5); Lymphocytes % 39.8 % (10-50); Mean Corpuscular HGB Conc 34.6 g/dL (31.8-35.4); Mean Corpuscular Hemoglobin 30.7 pg (27.0-31.2); Mean Corpuscular Volume 88.7 fl (80-94); Mean Platelet Volume 8.1 fl (7.4-10.4); Monocytes # 0.5 K/mm3 (0.1-1.0); Monocytes % 3.4 % (1.7-9.3); Neutrophils # 7.2 K/mm3 (1.8-7.8); Platelet Count 347 K/mm3 (142-424); Red Blood Count 4.78 M/mm3 (4.60-6.20); Red Cell Distribution Width 13.6 % (11.5-17.5); White Blood Count 13.8 K/mm3 (4.8-10.8)
[2021-01-07 14:38] LABS: Erythrocyte Sedimentation Rate 28 mm/hr (0-20)
[2021-01-07 15:22] LABS: C-Reactive Protein 7.5 mg/L (0-4)
== END 2021-01-07 16:10 | disposition home or self-care (01) ==
PROVIDERS: PCP Nurse Practitioner Family; Visit Provider Orthopaedic Surgery
DX: M00.9 Pyogenic arthritis, unspecified (principal)
CPT/HCPCS: 36415; 85025; 85651; 86140; G0463

== ENCOUNTER → 2021-01-20 13:25 | Outpatient (CLI) | payer BC, SELFPAY ==
[2021-01-20 14:20] LABS: Basophils # 0.1 K/mm3 (0-0.2); Basophils % 1.2 % (0.1-2.0); Eosinophils # 0.6 K/mm3 (0.0-0.4); Hematocrit 45.9 % (42.0-52.0); Hemoglobin 15.5 g/dL (14.1-18.0); Lymphocytes # 5.4 K/mm3 (0.7-4.5); Lymphocytes % 46.5 % (10-50); Mean Corpuscular HGB Conc 33.9 g/dL (31.8-35.4); Mean Corpuscular Hemoglobin 30.4 pg (27.0-31.2); Mean Corpuscular Volume 89.7 fl (80-94); Mean Platelet Volume 9.4 fl (7.4-10.4); Monocytes # 0.7 K/mm3 (0.1-1.0); Monocytes % 5.8 % (1.7-9.3); Neutrophils # 4.8 K/mm3 (1.8-7.8); Neutrophils % 41.4 % (37.0-80.0); Platelet Count 333 K/mm3 (142-424); Red Blood Count 5.12 M/mm3 (4.60-6.20); Red Cell Distribution Width 13.3 % (11.5-17.5); White Blood Count 11.7 K/mm3 (4.8-10.8)
[2021-01-20 14:23] LABS: Alanine Aminotransferase 34 U/L (12-78); Albumin Level 4.2 g/dl (3.5-5.0); Albumin/Globulin Ratio 1.5 (1.1-1.8); Alkaline Phosphatase 87 U/L (38-126); Anion Gap 15.5 mEq/L (5-15); Aspartate Amino Transferase 30 U/L (17-59); Bilirubin,Total 0.5 mg/dl (0.2-1.3); Blood Urea Nitrogen 12 mg/dl (9-20); Calcium 9.2 mg/dl (8.4-10.2); Carbon Dioxide 26 mmol/L (22.0-30.0); Chloride 103 mmol/L (98-107); Chol/HDL Ratio 7.8 (1-3.5); Cholesterol 233 mg/dl (140-200); Estimated Glomerular Filt Rate 76 ml/min (>60); GFR (African American) 93 ML/MIN (>60); Globulin 2.8 g/dL (1.3-3.2); Glucose 111 mg/dl (74-100); HDL Cholesterol 30 mg/dl (40-60); Potassium 4.5 mmoL/L (3.5-5.1); Sodium 140 mmol/L (136-145)
[2021-01-20 14:34] LABS: Direct LDL Cholesterol 87.73 mg/dL (100-129)
[2021-01-20 14:40] LABS: T4 (Thyroxine) 7.8 ug/dl (5.53-11.0)
[2021-01-20 14:47] LABS: Triglycerides 630 mg/dl (30-150)
[2021-01-20 14:50] LABS: Hemoglobin A1C 5.7 % (4.0-6.0)
[2021-01-20 14:53] LABS: Prostate Specific Ag Screen 0.4 ng/ml (0.0-4.0); Thyroid Stimulating Hormone 6.55 uIU/mL (0.465-4.68)
[2021-01-20 20:20] LABS: 25-OH Vitamin D, Total 24.9 ng/mL (30-100)
== END ==
PROVIDERS: Visit Provider Nurse Practitioner Family
DX: E03.9 Hypothyroidism, unspecified (principal); E55.9 Vitamin D deficiency, unspecified; E78.5 Hyperlipidemia, unspecified; I10 Essential (primary) hypertension; R73.03 Prediabetes; F17.200 Nicotine dependence, unspecified, uncomplicated; Z12.5 Encounter for screening for malignant neoplasm of prostate
CPT/HCPCS: 80053; 80061; 82306; 83036; 84436; 84443; 85025; G0103

== ENCOUNTER → 2021-01-28 10:50 | Outpatient (CLI) | payer BC, SELFPAY ==
--- NOTE | 2021-01-28 10:56 | XR_ITS ---
PROCEDURE: XR KNEE RT 3V CLINICAL INDICATION: s/p septic arthritis COMPARISON: CR KNEE3R KNEE-3 VIEWS-RT from 01/07/2016 CR XR KNEE RT 3V from 12/22/2020 FINDINGS: No fracture or dislocation. No lytic or blastic change. There is normal mineralization. The joint spaces are well-preserved. No significant degenerative/arthritic changes. No erosive changes evident. Other findings:Prominent soft tissue swelling is present in the infrapatellar region. Soft tissue swelling along the pre patella and suprapatellar region also noted but has shown some improvement. Vascular stent is present in the thigh and there is a nonspecific calcification along the medial aspect of the knee. Medial soft tissue swelling once again noted slightly improved IMPRESSION: No acute bony findings. Soft tissue swelling has shown some improvement Dictated by: Thomas Will MD 01/28/2021 12:36 Thomas Will MD in [place] 01/28/2021 12:36
[2021-01-28 11:33] LABS: Basophils # 0.1 K/mm3 (0-0.2); Basophils % 0.9 % (0.1-2.0); Eosinophils # 0.6 K/mm3 (0.0-0.4); Hemoglobin 14.9 g/dL (14.1-18.0); Lymphocytes # 5.2 K/mm3 (0.7-4.5); Lymphocytes % 45.6 % (10-50); Mean Corpuscular HGB Conc 33.9 g/dL (31.8-35.4); Mean Corpuscular Hemoglobin 30.1 pg (27.0-31.2); Mean Platelet Volume 7.8 fl (7.4-10.4); Monocytes # 0.5 K/mm3 (0.1-1.0); Monocytes % 4.7 % (1.7-9.3); Neutrophils % 43.7 % (37.0-80.0); Platelet Count 278 K/mm3 (142-424); Red Blood Count 4.95 M/mm3 (4.60-6.20); Red Cell Distribution Width 13.3 % (11.5-17.5); White Blood Count 11.4 K/mm3 (4.8-10.8)
[2021-01-28 11:46] LABS: C-Reactive Protein 6.2 mg/L (0-4)
[2021-01-28 12:02] LABS: Erythrocyte Sedimentation Rate 13 mm/hr (0-20)
== END ==
PROVIDERS: PCP Nurse Practitioner Family; Visit Provider Orthopaedic Surgery
DX: M00.9 Pyogenic arthritis, unspecified (principal); Z09 Encounter for follow-up examination after completed treatment for conditions other than malignant neoplasm
CPT/HCPCS: 36415; 73562; 85025; 85651; 86140

== ENCOUNTER → 2021-02-07 08:09 | Outpatient (POV) | payer BC, SELFPAY | PROVIDERS: Visit Provider Nurse Practitioner Family | DX: Z00.00 Encounter for general adult medical examination without abnormal findings (principal) ==

== ENCOUNTER → 2021-02-14 10:48 | Outpatient (POV) | payer BC, SELFPAY ==
--- NOTE | 2021-02-14 11:10 | HMH.PMCON ---
Assessment and Plan (1) Arthritis of right knee Status: Chronic Category: Medical Code(s): M17.11 - Unilateral primary osteoarthritis, right knee (2) Low back pain Status: Chronic Category: Medical Code(s): M54.5 - Low back pain - Assessment and plan all Dx Assessment and Plan for all problems:: Patient I discussed interventional therapies, injections. He is not interested at this time. He has deferred and will seek alternative with a clinic for possible oral medications. He has been instructed if he does decide to undergo interventional therapies in the future to contact the clinic. We discussed intra-articular injection as well as genicular blocks. Patient has been instructed to contact the clinic with any concerns before the next appointment. Dr. Moreno has reviewed this note and agrees with this plan of care. This note was dictated using voice recognition software and make contain errors or omissions. HPI - Data of Consult Patient: new to practice Consult date: 02/14/21 Requesting Physician: Clover Ceballos APRN Primary Care Provider: Fred Philip APRN - Consult Narrative Reason for consult: Right knee pain History of present illness: Mr. Carter is a 60 year old male who presents today for consultation for chronic right knee pain. Patient says that he has had progressively worsening knee pain that required him to have surgery in November 2020. He reports that he had septic arthritis. Since his surgery, he has continued to have worsening pain to the area. He has not been working for 4 months due to the pain to the right knee. He also reports to have chronic low back pain for which injective therapy has not given him relief in the past. His pain is worse with standing, sitting, lying down, walking as well as climbing stairs. He does report to have stents in his right femoral artery. He says he does have chronic stabbing pain to this area has occurred since his surgery. He has tried anti-inflammatories with no significant relief. He is here today for possible oral medication management. We did discuss injective therapy, however, the patient is not interested at this time. I did explain to the patient that we are interventional in nature and he would need to try interventional therapies, however, he has deferred at this time. Patient's pain is a 7 out of 10. CC: Clover Ceballos APRN [facility] History I have reviewed the patient's past medical history: Yes Medical History: Reports:: Chronic Obstructive Pulmonary Disease (COPD), Gastroesophageal Reflux Disease(GERD), Hyperlipidemia, Hypertension, Peripheral Artery Disease Denies:: Cancer, Diabetes Mellitus Type 1, Diabetes Mellitus Type 2, Internal Pacemaker, MRSA, Seizures *Have you ever received a pneumonia vaccine?: No *Have you received a flu vaccine this season?: No Other Medical History: Reports: Hypothyroidism, Sinus Problems Laterality Cases: Bilateral: Carpal Tunnel Release Other Surgeries: Yes: Cardiac Catheterization, Colonoscopy, Coronary Stent, Plastic Surgery, Sinus Surgery, Other. No: Pacemaker Amputation: No Fractures: Yes (FINGERS) - *Social History Smoking Status: Former smoker Tobacco Type: cigarettes # Packs/Day (cigarettes): 2 #Yrs smoked (if former smoker): 40 Alcohol Intake: former Alcohol Intake Frequency:: 0-2 drinks per day Substance Use Type: denies use *Occupational Status:: employed Housing: house Household Members: spouse *Travel in the last 8 weeks: None Family Hx:: No significant family history Review of Systems - Review of Systems Review of Systems General: No recent weight changes, no fever, no sleep disturbances Respiratory: No cough, no shortness of air, no recurring pulmonary infections Cardiovascular/peripheral vascular: No chest pain, no palpitations, no edema, no shortness of breath Gastrointestinal: No new onset incontinence, normal bowel movements reported Genitourinary: No new onset incontinence M
[2021-02-14 11:51] VITALS: BP 128/81; PULSE 58; RESP 18; O2SAT 96; BMI 28.1
== END ==
PROVIDERS: PCP Nurse Practitioner Family; Visit Provider Clinical Nurse Specialist Family Health
DX: M17.11 Unilateral primary osteoarthritis, right knee (principal); M54.5 Low back pain
CPT/HCPCS: 99202; G0463

== ENCOUNTER 2021-03-08 16:49 | Emergency (ER) | payer BC, SELFPAY ==
[2021-03-08 17:38] VITALS: BP 113/74; PULSE 74; RESP 16; TEMP 36.6; O2SAT 97; BMI 28.1
[2021-03-08 18:08] VITALS: BP 0/0; PULSE 0; RESP 0; TEMP -17.7; TEMP 0
== END 2021-03-08 18:27 | disposition left against medical advice (07) ==
LOC: UTC 19:39
PROVIDERS: Emergency Provider Nurse Practitioner Family; PCP Nurse Practitioner Family
DX: Z53.21 Procedure and treatment not carried out due to patient leaving prior to being seen by health care provider (principal)

== ENCOUNTER 2021-05-30 13:06 | Emergency (ER) | payer BC, SELFPAY ==
[2021-05-30 13:42] VITALS: BP 138/80; PULSE 61; RESP 16; TEMP 36.4; O2SAT 99; BMI 28.1
--- NOTE | 2021-05-30 13:46 | XR_ITS ---
PROCEDURE: XR FOREARM RT 2V CLINICAL INDICATION: splinter COMPARISON: CR ELBR3 ELBOW-RT-3 VIEWS from 04/03/2017 FINDINGS: The area of clinical concern is not made specific other than the forearm. Faint linear density is noted medial to the distal shaft of the ulna and may represent vascular calcification. A faint linear opacity is also present along the dorsal and proximal to midshaft of the radius. No bony anomaly. IMPRESSION: Linear opacities in the soft tissues possibly vascular. Please correlate as the patient's area of clinical concern Dictated by: Thomas Will MD 05/30/2021 15:00 Thomas Will MD in [place] 05/30/2021 15:00
--- NOTE | 2021-05-30 13:59 | HMH.EDUTC ---
[facility] [place] Dis[place] Clinical Impression: Foreign body of right upper arm, assisted current use of anticoagulant Otitis media Qualifiers: Otitis media type: suppurative Chronicity: acute Laterality: bilateral Recurrence: non-recurrent Spontaneous tympanic membrane rupture: without spontaneous rupture Qualified Code(s): H66.003 - Acute suppurative otitis media without spontaneous rupture of ear drum, bilateral Disposition: Home, Self-Care Condition on Discharge: Good Instructions: Middle Ear Infection Additional Instructions: I put in a referral to surgery (Dr Garcia) here at [facility] to have your arm evaluated and the splinter possibly removed. Take the antibiotics for your ear infection. Drink plenty of fluids. Take tylenol for pain or fever. Follow up with your regular doctor. GO TO THE ER FOR ANY WORSENING SYMPTOMS Prescriptions: Amoxicillin [Amoxicillin 500mg Tab] 500 mg PO TID 10 Days #30 tab Transmission Status: Received by [facility] [employer] Referrals: Haritha Almazan APRN [Primary Care Provider] - Gus Garcia MD [Staff Physician] - Time of Disposition: 15:40 Medical Decision Making - Medical Records Medical records reviewed: No: I reviewed the patient's medical records. - Guzman Inquiry Pt receiving controlled substance: No Vital Signs: 05/30/21 13:42 05/30/21 15:43 Temperature 97.5 F L 97.5 F L Temperature Source Oral Pulse Rate 61 Pulse Rate [Left] 61 Respiratory Rate 16 16 Blood Pressure 138/80 Blood Pressure [Right Arm] 138/80 Blood Pressure Mean [Right Arm] 99 02 Sat by Pulse Oximetry 99 - Lab Data Lab results reviewed: Yes: I reviewed the patient's lab results. [facility] [place] HPI - General Stated complaint: possible f/o rt arm, dizziness Time Seen by Provider: 05/30/21 13:50 Mode of Arrival: Ambulatory Source of Information: Patient Limitations: No Limitations Description of Symptoms (Recalled from Triage Doc. by RN): pt states he has a splinter in his RFA. states this has been there 3 mo. the skin is completely healed. pt states when it happened he was able to get a small piece of it out. pt also c/o L ear ache down to his neck, dizziness, light headed and loss of balance at times. HEENT Symptoms (Recalled from RN notes): Yes (L ear ache radiating down his neck) Resp Symptoms (Recalled from RN notes): No Skin Symptoms (Recalled from RN notes): Yes (possible foreign object in RFA) MS Symptoms (Recalled from RN notes): No Functional Status (Recalled from RN notes): wnl - History of Present Illness Provider Complaint: He is here with complaints of having a foreign body (splinter) in his right forearm. He states that it has been there for the past 2 months. The entrance site is well healed and he has no pain or redness at the site. It just bothers him that he knows there is a piece of wood in his skin. He is on xalrelto as a blood thinner. He also c/o right ear pain and periods of being dizzy over the past 2 days. He states that he feels like he has an ear infection. - Related Data Home Medications Medication Instructions Recorded Confirmed loratadine 10 mg tablet 10 mg PO DAILY tab 07/12/20 02/09/21 cyclobenzaprine 10 mg tablet 10 mg PO BIDP PRN tab 11/09/20 02/09/21 Rivaroxaban [Xarelto 2.5mg Tab*] 2.5 mg PO BID 12/23/20 02/09/21 Metoclopramide HCl [Metoclopramide 10 mg PO ACHS 12/24/20 02/09/21 10mg Tablet] Previous Rx's Medication Instructions Recorded albuterol sulfate 90 mcg/actuation 1 inh INHALATION QID PRN #8 g 06/16/20 aerosol inhaler Docusate Sodium [Docusate Sodium 100 mg PO DAILY cap 12/25/20 100mg Cap] Nicotine [Nicoderm 21mg/24hr 21 mg TD DAILYP PRN #30 patch.td24 12/25/20 patch] promethazine 25 mg tablet See Rx Instructions .ROUTE 01/10/21 .COMPLEX #90 tab ropinirole 1 mg tablet See Rx Instructions .ROUTE 01/10/21 .COMPLEX #60 tablet aspirin 81 mg tablet,delayed 81 mg PO DAILY #90 tab 01/12/21 release esomepraz
[2021-05-30 15:43] VITALS: BP 138/80; PULSE 61; RESP 16; TEMP 36.4
== END 2021-05-30 15:45 | disposition home or self-care (01) ==
PROVIDERS: Emergency Provider Nurse Practitioner Family; PCP Nurse Practitioner Family
DX: S40.851A Superficial foreign body of right upper arm, initial encounter (principal); H66.003 Acute suppurative otitis media without spontaneous rupture of ear drum, bilateral; I10 Essential (primary) hypertension; E78.5 Hyperlipidemia, unspecified; K21.9 Gastro-esophageal reflux disease without esophagitis; E03.9 Hypothyroidism, unspecified; J44.9 Chronic obstructive pulmonary disease, unspecified; Z87.891 Personal history of nicotine dependence
CPT/HCPCS: 73090; 99202; G0463

== ENCOUNTER → 2021-06-07 09:33 | Outpatient (CLI) | payer BC, SELFPAY ==
--- NOTE | 2021-06-07 09:41 | US_ITS ---
PROCEDURE: US EXTREMITY RT LIMITED CLINICAL INDICATION: possible fb COMPARISON: No exams were available for comparison FINDINGS: Ultrasound performed of the patient's forearm at the area of clinical concern. At this region there is a thin linear area of increased echogenicity with a small surrounding area of decreased echogenicity. This measures 2.2 cm in length and is in the subcutaneous tissues approximately 4 mm deep. This is suspicious for a foreign body such as a splinter. IMPRESSION: Suspected foreign body in the subcutaneous tissues of the right forearm which may represent a splinter Dictated by: Thomas Will MD 06/07/2021 17:15 Thomas Will MD in [place] 06/07/2021 17:15
== END ==
PROVIDERS: PCP Nurse Practitioner Family; Visit Provider Surgery
DX: S50.851A Superficial foreign body of right forearm, initial encounter (principal)
CPT/HCPCS: 76882

== ENCOUNTER → 2021-06-18 10:43 | Outpatient (CLI) | payer BC, SELFPAY ==
[2021-06-18 11:24] LABS: Basophils # 0.1 K/mm3 (0-0.2); Basophils % 0.6 % (0.1-2.0); Eosinophils # 0.5 K/mm3 (0.0-0.4); Eosinophils % 4.5 % (0.1-12.0); Hemoglobin 15.7 g/dL (14.1-18.0); Lymphocytes # 5.1 K/mm3 (0.7-4.5); Lymphocytes % 44.9 % (10-50); Mean Corpuscular HGB Conc 34.8 g/dL (31.8-35.4); Mean Corpuscular Hemoglobin 30.7 pg (27.0-31.2); Mean Corpuscular Volume 88.1 fl (80-94); Mean Platelet Volume 8.8 fl (7.4-10.4); Monocytes # 0.6 K/mm3 (0.1-1.0); Monocytes % 5.3 % (1.7-9.3); Neutrophils # 5.1 K/mm3 (1.8-7.8); Neutrophils % 44.7 % (37.0-80.0); Platelet Count 308 K/mm3 (142-424); Red Blood Count 5.11 M/mm3 (4.60-6.20); Red Cell Distribution Width 13.2 % (11.5-17.5); White Blood Count 11.4 K/mm3 (4.8-10.8)
[2021-06-18 13:47] LABS: Anion Gap 12.6 mEq/L (5-15); Blood Urea Nitrogen 14 mg/dl (9-20); Calcium 9.3 mg/dl (8.4-10.2); Carbon Dioxide 26 mmol/L (22.0-30.0); Chloride 105 mmol/L (98-107); Estimated Glomerular Filt Rate 86 ml/min (>60); GFR (African American) 105 ML/MIN (>60); Glucose 117 mg/dl (74-100); Potassium 4.6 mmoL/L (3.5-5.1); Sodium 139 mmol/L (136-145)
== END ==
PROVIDERS: Visit Provider Surgery
DX: Z01.812 Encounter for preprocedural laboratory examination (principal); Z11.52 Encounter for screening for COVID-19; T14.8XXA Other injury of unspecified body region, initial encounter; M79.631 Pain in right forearm
CPT/HCPCS: 36415; 80048; 85025; C9803; U0003; U0005

== ENCOUNTER 2021-06-21 08:59 | Day surgery (SDC) | payer BC, SELFPAY ==
[2021-06-16 14:28] VITALS: BMI 27.3
[2021-06-21 09:10] VITALS: BP 137/76; PULSE 60; RESP 18; TEMP 36.2; O2SAT 99
--- NOTE | 2021-06-21 09:27 | P.PN_ITS ---
[facility] Anesthesia Checklist - Patient Identification Patient Identification: Arm Band, Verbal (Name & ) - Structural Data Admitted From: Home Planned Operative Procedure/s: Foreign body removal of right forearm Consent for Planned Operative Procedure(s) Verified: Yes Verified Documents: Surgical Consent - NPO Status Verified Time NPO: 00:00 - Additional verifications Anesthesia Reactions: No Hx Blood Transfusions: No - Cardiovascular Assessment Heart Sounds: S1 & S2 Pulse Rhythm: Regular - Airway Assessment C-Spine Mobility Assessed: Yes TMJ Mobility Assessed: Yes Dentition: Edentulous - Neurological Assessment Level of Consciousness: Awake, Alert, Appropriate - Anesthesia Plan Anesthesia Risk discussed: Yes ASA Class: III Anesthesia Type: MAC [facility] History I have reviewed the patient's past medical history: Yes Medical History: Reports:: Chronic Obstructive Pulmonary Disease (COPD), Gastroesophageal Reflux Disease(GERD), Hyperlipidemia, Hypertension, Peripheral Artery Disease Denies:: Cancer, Diabetes Mellitus Type 1, Diabetes Mellitus Type 2, Internal Pacemaker, MRSA, Seizures *Have you ever received a pneumonia vaccine?: No *Have you received a flu vaccine this season?: No Other Medical History: Reports: Hypothyroidism, Sinus Problems Anesthesia experience/problems:: none Laterality Cases: Right: Arthroscopy Knee, Carpal Tunnel Release Other Surgeries: Yes: Cardiac Catheterization, Colonoscopy, Coronary Stent, Plastic Surgery, Sinus Surgery, Other. No: Pacemaker Amputation: No Fractures: Yes (FINGERS) - *Social History Last grade of school completed: GED Smoking Status: Current every day smoker Tobacco Type: cigarettes # Packs/Day (cigarettes): 2 #Yrs smoked (if former smoker): 40 Alcohol Intake: never Alcohol Intake Frequency:: 0-2 drinks per day Substance Use Type: denies use *Occupational Status:: unemployed, disabled Housing: house Household Members: spouse, family *Travel in the last 8 weeks: None Family Hx:: Unable to obtain
[2021-06-21 10:31] VITALS: BP 102/66; PULSE 58; RESP 18; TEMP 36.1; O2SAT 97
--- NOTE | 2021-06-21 10:33 | P.OP_ITS ---
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 He states that about 4 months ago he was at [employer] lifting a piece of lumber and felt a sharp pain in his right forearm area. He did remove a small splinter. However, he has had a persistent linear palpable lesion underneath the skin. He was seen in the emergency department. He underwent plain x-ray which revealed Linear opacities in the soft tissues possibly vascular. He was sent for surgical consultation.. Initially on examination this area felt like possible superficial thrombophlebitis. However, there did appear to be some palpable edges. I therefore had him undergo ultrasound for confirmation. This reveals findings consistent with foreign body, likely splinter. He wished to have this excised. Operative findings:: Consistent with a shard of wood, splinter Operative note:: Consent was obtained and patient was taken to the operating room. He was positioned in supine position. Adequate intravenous sedation was achieved. Right forearm was prepped and draped in the standard surgical fashion. Lesion was vaguely palpable. Local anesthetic was infiltrated. Limited incision was made. Dissection was carried down and after some time the lesion could not be clearly identified. There appeared to be a palpable tip of the lesion adjacent to this and after injection of additional local anesthetic small incision was made. Dissection was carried down and there was well formed fibrous capsule. This was incised and underlying wood shard was identified and able to be extracted. Pressure was held for hemostasis. The 2 tiny incisions were closed with a couple of interrupted 5-0 plain gut. Dermabond was applied. Clean dry sterile dressing was applied. Condition: stable Disposition: PACU Complications:: None
[2021-06-21 10:46] VITALS: BP 117/71; PULSE 63; RESP 18; O2SAT 94
[2021-06-21 11:01] VITALS: BP 118/73; PULSE 67; RESP 18; O2SAT 94
[2021-06-21 11:15] VITALS: BP 142/78; PULSE 71; RESP 18; O2SAT 98
== END 2021-06-21 11:19 | disposition home or self-care (01) ==
LOC: OR 09:00
PROVIDERS: PCP Nurse Practitioner Family; Visit Provider Surgery
PROC: (CPT 10121; principal; 2021-06-21 10:30)
DX: S51.841S Puncture wound with foreign body of right forearm, sequela (principal); J44.9 Chronic obstructive pulmonary disease, unspecified; K21.9 Gastro-esophageal reflux disease without esophagitis; E78.5 Hyperlipidemia, unspecified; I10 Essential (primary) hypertension; I73.9 Peripheral vascular disease, unspecified; Z72.0 Tobacco use; Z88.8 Allergy status to other drugs, medicaments and biological substances; Z79.899 Other long term (current) drug therapy
CPT/HCPCS: 10121; 96374

== ENCOUNTER 2021-07-02 13:14 | Emergency (ER) | payer BC, SELFPAY ==
[2021-07-02 14:39] VITALS: BP 128/74; PULSE 76; RESP 16; TEMP 36.6; O2SAT 96; BMI 27.3
--- NOTE | 2021-07-02 14:45 | HMH.EDUTC ---
[facility] [place] Clinical Impression: nursing home current use of anticoagulant Laceration of right index finger Qualifiers: Encounter type: initial encounter Damage to nail status: without damage Foreign body presence: without foreign body Qualified Code(s): S61.210A - Laceration without foreign body of right index finger without damage to nail, initial encounter Disposition: Home, Self-Care Condition on Discharge: Good Instructions: How to Care for a Laceration After Repair, DI for Laceration Repair, DI for Laceration Repair -- Simple Additional Instructions: Keep the wound clean and dry. Keep a dressing on it if you are going to be getting it dirty. Watch the for signs of infection, such as redness, swelling, drainage, fever. etc. Take tylenol for pain. Follow up with your regular doctor. Return in 10 days to have the sutures removed. GO TO THE ER FOR ANY WORSENING SYMPTOMS OR CONCERNS. Prescriptions: cephALEXin [cephALEXin 500mg capsule] 500 mg PO Q6H 10 Days #40 cap Transmission Status: Received by [facility] Referrals: Haritha Almazan APRN [Primary Care Provider] - Time of Disposition: 16:09 Medical Decision Making - Medical Records Medical records reviewed: No: I reviewed the patient's medical records. - Guzman Inquiry Pt receiving controlled substance: No Vital Signs: 07/02/21 14:39 07/02/21 16:10 Temperature 98 F 98 F Temperature Source Oral Pulse Rate 76 Pulse Rate [Left] 76 Respiratory Rate 16 16 Blood Pressure 128/74 Blood Pressure [Right Arm] 128/74 Blood Pressure Mean [Right Arm] 92 02 Sat by Pulse Oximetry 96 Orders (Tests/Meds): ED MEDICATIONS Discontinued Medications Generic Name Dose Route Start Last Admin Trade Name Levi PRN Reason Stop Dose Admin Lidocaine HCl 0 ml 07/02/21 15:35 07/02/21 15:35 Lidocaine 1% Pf 2ml Ampule SQ 07/02/21 15:36 2 mg ONCE ONE Administration [facility] [place] - General Stated complaint: [id number] right index finger,home accident Time Seen by Provider: 07/02/21 14:45 Mode of Arrival: Ambulatory Source of Information: Patient Limitations: No Limitations Description of Symptoms (Recalled from Triage Doc. by RN): pt presets with a lac to his R index finger. pt sliced it on metal cutters. occured at 1000. pt came in he could not get the bleeding to stop and is on two blood thinners. the area is not bleeding at this time. 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 He has a laceration on his right index finger. He is on blood thinners so it bled a lot. That is why he came in. His tetanus immunization is up to date. - Related Data Home Medications Medication Instructions Recorded Confirmed cyclobenzaprine 10 mg tablet 10 mg PO BIDP PRN tab 11/09/20 06/22/21 Metoclopramide HCl [Metoclopramide 10 mg PO ACHS 12/24/20 06/22/21 10mg Tablet] Cetirizine HCl 10 mg PO DAILY 06/16/21 06/22/21 Isosorbide Mononitrate [Isosorbide See Rx Instructions .ROUTE .COMPLEX 06/16/21 06/22/21 Mononitrate ER] Levothyroxine Sodium [Synthroid See Rx Instructions .ROUTE .COMPLEX 06/16/21 06/22/21 25mcg (0.025mg) tablet] Promethazine HCl [Phenergan 25mg See Rx Instructions .ROUTE .COMPLEX 06/16/21 06/22/21 tab] Rivaroxaban [Xarelto] See Rx Instructions .ROUTE .COMPLEX 06/16/21 06/22/21 Ropinirole HCl See Rx Instructions .ROUTE .COMPLEX 06/21/21 06/22/21 Rosuvastatin Calcium 20 mg PO DAILY 06/21/21 06/22/21 Previous Rx's Medication Instructions Recorded albuterol sulfate 90 mcg/actuation 1 inh INHALATION QID PRN #8 g 06/16/20 aerosol inhaler aspirin 81 mg tablet,delayed
[2021-07-02 16:10] VITALS: BP 128/74; PULSE 76; RESP 16; TEMP 36.6
== END 2021-07-02 16:25 | disposition home or self-care (01) ==
PROVIDERS: Emergency Provider Nurse Practitioner Family; PCP Nurse Practitioner Family
DX: S61.210A Laceration without foreign body of right index finger without damage to nail, initial encounter (principal); W26.9XXA Contact with unspecified sharp object(s), initial encounter; Y92.89 Other specified places as the place of occurrence of the external cause; J44.9 Chronic obstructive pulmonary disease, unspecified; K21.9 Gastro-esophageal reflux disease without esophagitis; E03.9 Hypothyroidism, unspecified; I10 Essential (primary) hypertension; E78.5 Hyperlipidemia, unspecified; F17.210 Nicotine dependence, cigarettes, uncomplicated
CPT/HCPCS: 12001; 96372; 99202; G0463

== ENCOUNTER → 2021-07-19 09:47 | Outpatient (CLI) | payer BC, SELFPAY | PROVIDERS: Visit Provider Nurse Practitioner | DX: U07.1 COVID-19 (principal) | CPT/HCPCS: C9803; U0003; U0005 ==

== ENCOUNTER → 2021-07-29 13:35 | Outpatient (CLI) | payer BC, SELFPAY | PROVIDERS: Visit Provider Nurse Practitioner | DX: U07.1 COVID-19 (principal) | CPT/HCPCS: C9803; U0003; U0005 ==

== ENCOUNTER 2021-09-08 10:47 | Emergency (ER) | payer BC, SELFPAY ==
[2021-09-08 11:56] VITALS: BP 0/0; PULSE 0; RESP 0; TEMP -17.7; TEMP 0
== END 2021-09-08 11:57 | disposition left against medical advice (07) ==
LOC: UTC 10:51
PROVIDERS: Emergency Provider Nurse Practitioner; PCP Nurse Practitioner Family
DX: E78.5 Hyperlipidemia, unspecified (principal); Z53.21 Procedure and treatment not carried out due to patient leaving prior to being seen by health care provider; E03.9 Hypothyroidism, unspecified; G62.9 Polyneuropathy, unspecified; E55.9 Vitamin D deficiency, unspecified; Z88.6 Allergy status to analgesic agent; Z79.84 Long term (current) use of oral hypoglycemic drugs; Z79.51 Long term (current) use of inhaled steroids; Z79.899 Other long term (current) drug therapy

== ENCOUNTER → 2022-04-10 10:40 | Outpatient (CLI) | payer BC, SELFPAY ==
--- NOTE | 2022-04-10 10:44 | XR_ITS ---
FINAL REPORT CLINICAL HISTORY: Knee pain FINDINGS: LEFT KNEE Three views of the left knee were obtained. There is no acute fracture or dislocation. Visualized joint spaces are normally aligned. There is no joint effusion. There are mild vascular calcifications. Soft tissues are otherwise unremarkable. IMPRESSION: No acute bony abnormality. Reviewed, Interpreted and Dictated by Gus Menard III, MD Transcribed by Kellen Barrios Authenticated and . [facility]
== END ==
PROVIDERS: PCP Nurse Practitioner Family; Visit Provider Nurse Practitioner Family
DX: M25.562 Pain in left knee (principal)
CPT/HCPCS: 73562

== ENCOUNTER → 2022-04-28 08:33 | Outpatient (CLI) | payer BC, SELFPAY ==
--- NOTE | 2022-04-28 08:57 | IR_ITS ---
FINAL REPORT CLINICAL HISTORY: L KNEE PAIN FLUORO TIME 0:30MIN FINDINGS: FLUOROSCOPIC GUIDED LEFT KNEE ARTHROGRAM HISTORY: Acute left knee pain and swelling, lots of squatting at work. ATTENDING PHYSICIAN: Dr. Derian MD PHYSICIAN SENIOR SAS PROGRAMMER: Lula Hicks PA-C PROCEDURE: Informed consent was obtained from the patient. Timeout procedure was performed prior to beginning. Fluoroscopy was utilized to localize the left knee joint space. Patient was prepped and draped in usual sterile fashion over the left knee. Skin was anesthetized with 1% lidocaine. Access to the joint space was obtainedusing a 3-1/2 inch spinal needle. A small amount of Isovue contrast was injected to confirm needle placement. This was confirmed. Subsequently, approximately 18 mL of dilute Isovue were injected into the joint space. Patient tolerated the procedure well and left the department good condition. Fluoroscopy time: 30 seconds. A total of 2 images were saved. IMPRESSION: Technically successful fluoroscopy guided left knee injection for CT arthrogram. Please see the CT report. Reviewed, Interpreted and Dictated by Gus Menard III, MD Transcribed by Lula Hicks PA-C Authenticated and [facility]
--- NOTE | 2022-04-28 09:02 | CT_ITS ---
FINAL REPORT CLINICAL HISTORY: knee pain, s/p arthrogram left knee FINDINGS: CT LOWER EXTREMITY W/CONTRAST Axial CT images were performed through the left knee after the intra-articular injection of contrast. Coronal and sagittal reformatted images were submitted. This study was performed with techniques to keep radiation doses as low as reasonably achievable (ALARA). Individualized dose reduction techniques using automated exposure control or adjustment of mA and/or kV according to the patient's size were employed. There is no acute fracture. There is no dislocation. The joint spaces are preserved. There is contrast extending into the body and posterior horn of the lateral meniscus consistent with a tear. No other meniscal tear is identified. The musculature is intact. IMPRESSION: Tear of the body and posterior horn of the lateral meniscus. Reviewed, Interpreted and Dictated by Gus Menard III, MD Transcribed by Bunny Cotton Authenticated and [facility]
== END ==
PROVIDERS: PCP Nurse Practitioner Family; Visit Provider Orthopaedic Surgery
DX: M25.562 Pain in left knee (principal)
CPT/HCPCS: 73580; 73700; Q9967

== ENCOUNTER 2022-06-13 11:15 | Day surgery (SDC) | payer BC, SELFPAY ==
[2022-06-13] VITALS (11 sets, daily range): BP systolic 113–157; BP diastolic 73–90; PULSE 53–71; RESP 16–18; TEMP 36.1–43; O2SAT 92–100; BMI 60.3
--- NOTE | 2022-06-13 11:25 | XR_ITS ---
FINAL REPORT CLINICAL HISTORY: pre op for lt knee scope COMPARISON: December 24, 2020 FINDINGS: A single portable view of the chest was obtained. The heart size and pulmonary vascularity are within normal limits. The mediastinum is within normal limits. No acute pulmonary abnormality is identified. The bony thorax is intact. IMPRESSION: No active cardiopulmonary disease. Reviewed, Interpreted and Dictated by Gus Menard III, MD Transcribed by Kellen Barrios Authenticated and [facility]
[2022-06-13 12:01] LABS: Microscopic, Urine URINE MICROSCOPIC (MICROSCOPIC)
[2022-06-13 12:06] LABS: Basophils # 0.2 K/mm3 (0-0.2); Basophils % 1.5 % (0.1-2.0); Eosinophils # 0.5 K/mm3 (0.0-0.4); Eosinophils % 3.6 % (0.1-12.0); Hematocrit 49.4 % (42.0-52.0); Lymphocytes # 5.3 K/mm3 (0.7-4.5); Lymphocytes % 40.1 % (10-50); Mean Corpuscular HGB Conc 32.4 g/dL (31.8-35.4); Mean Corpuscular Hemoglobin 30.7 pg (27.0-31.2); Mean Corpuscular Volume 94.6 fl (80-94); Mean Platelet Volume 8.1 fl (7.4-10.4); Monocytes # 0.7 K/mm3 (0.1-1.0); Monocytes % 5.3 % (1.7-9.3); Neutrophils # 6.6 K/mm3 (1.8-7.8); Neutrophils % 49.5 % (37.0-80.0); Platelet Count 281 K/mm3 (142-424); Red Blood Count 5.23 M/mm3 (4.60-6.20); Red Cell Distribution Width 13.6 % (11.5-17.5); White Blood Count 13.2 K/mm3 (4.8-10.8)
[2022-06-13 12:06] LABS: Appearance,Urine CLEAR (Clear); Bilirubin,Urine Negative (Negative); Blood, Urine Negative (Negative); Color,Urine YELLOW (Yellow); Glucose,Urine (UA) Negative (Negative); Ketones,Urine Negative (Negative); Leukocyte Esterase,Urine Negative (Negative); Nitrate,Urine Negative (Negative); Protein,Urine Negative (Negative); Specific Gravity, Urine 1.025 (1.005-1.030); Urobilinogen,Urine 0.2 EU/dl (0.2)
[2022-06-13 12:07] LABS: Chloride 104 mmol/L (98-107); Potassium 4.8 mmoL/L (3.5-5.1); Sodium 140 mmol/L (136-145)
[2022-06-13 12:09] LABS: Blood Urea Nitrogen 10 mg/dl (9-20); Creatinine Clearance Estimated 76 mL/min (50-200); Estimated Glomerular Filt Rate 76 ml/min (>60); GFR (African American) 92 ML/MIN (>60)
[2022-06-13 12:10] LABS: Alanine Aminotransferase 25 U/L (12-78); Albumin Level 4.5 g/dl (3.5-5.0); Albumin/Globulin Ratio 1.5 (1.1-1.8); Alkaline Phosphatase 76 U/L (38-126); Anion Gap 9.8 mEq/L (5-15); Aspartate Amino Transferase 30 U/L (17-59); Bilirubin,Total 0.3 mg/dl (0.2-1.3); Calcium 9.5 mg/dl (8.4-10.2); Carbon Dioxide 31 mmol/L (22.0-30.0); Globulin 3.1 g/dL (1.3-3.2); Glucose 107 mg/dl (74-100); Total Protein,Serum 7.6 g/dl (6.3-8.2)
[2022-06-13 12:17] LABS: Bacteria,Urine Trace /lpf
--- NOTE | 2022-06-13 12:32 | EXP.ANES.CKL ---
[facility] Disclaimer: The information contained in this section may have been updated after the patient was seen, as this information can be updated by other users. Medical History (Updated 06/13/22 @ 11:43 by Kyle López RN) History of gastroesophageal reflux (GERD) History of peripheral arterial disease Hyperlipidemia (~08/21/17) Hypothyroidism (~08/21/17) Neuropathy Vitamin D deficiency (~08/21/17) Surgical History (Updated 06/13/22 @ 11:45 by Kyle López RN) History of facial fracture repair History of intravascular stent placement History of knee surgery History of skin graft Family History (Updated 06/13/22 @ 11:45 by Kyle López RN) Other No significant family history Social History (Updated 06/13/22 @ 11:46 by Kyle López RN) Smoking Status: Current every day smoker tobacco type: cigarettes packs per day: 2 second hand exposure: No alcohol intake: former substance use type: denies use current occupational status: unemployed and disabled Travel in the last 8 weeks: None household members: spouse and family housing: house 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 [facility] [place] Anesthesia Checklist Patient Identification Patient Identification: Arm Band and Verbal (Name & ) Structural Data Admitted From: Home Planned Operative Procedure/s: Left Knee Arthroscopy Consent for Planned Operative Procedure(s) Verified: Yes Verified Documents: Surgical Consent NPO Status Verified Time NPO: 00:00 Additional verifications Anesthesia Reactions: No Hx Blood Transfusions: No Blood Transfusion Reaction: No Airway Assessment C-Spine Mobility Assessed: Yes TMJ Mobility Assessed: Yes Dentition: Edentulous Neurological Assessment Level of Consciousness: Awake, Alert and Appropriate Anesthesia Plan Anesthesia Risk discussed: Yes ASA Class: III Anesthesia Type: General
--- NOTE | 2022-06-13 12:49 | EXP.OP.NOTE ---
Date of procedure: 06/13/22 Pre-op Diagnosis:: Left knee lateral meniscus tear Post-op Diagnosis:: Left knee lateral meniscus tear Procedure performed:: Left knee arthroscopy with partial lateral meniscectomy Surgeon:: Bolivar Kaplan MD Scientist Electronics(s):: None HEALTH TECH:: Serafin Coleman Anesthesia: GETA and local Estimated blood loss (mL): 5 Clinical Note:: Jasmeet is a pleasant 61-year-old male who injured his left knee recently. CT arthrogram revealed a lateral meniscus tear and minimal degenerative changes. He has failed conservative treatment measures including a cortisone injection. Normally takes Xarelto for peripheral vascular disease but he stopped this 1 week ago. We discussed all the risks, benefits and alternatives to left knee arthroscopy for partial lateral meniscectomy. He agreed to proceed and surgical consent form was signed. Operative findings:: Left knee posterior horn lateral meniscus tear. Operative note:: He was seen in the preoperative holding area. Left knee was marked to confirm the correct operative site. He was seen by anesthesia. He received Ancef 2 g IV prophylactic antibiotics within 1 hour of incision time. He was brought back to the OR. General anesthesia induced without difficulty. Left lower extremity was prepped and draped in the usual sterile fashion. Timeout performed to confirm left knee arthroscopy and patient Jasmeet Carter. Made an anterior lateral viewing portal with an 11 blade scalpel. Arthroscope was introduced into the knee joint. I then made an anteromedial portal localizing this with a spinal needle. This incision was made with the 11 blade scalpel and dilated with a trocar. Diagnostic arthroscopy commenced. He was seen to have minimal chondromalacia of the patellofemoral compartment. No unstable cartilage flaps. Medial compartment revealed medial meniscus was intact and no significant chondromalacia. Cruciate ligaments were seen to be intact. He was placed in the [id number] position. We entered the lateral compartment. He was seen to have a complex tear posterior horn of the lateral meniscus. There was a vertical tear of the posterior horn with a horizontal cleavage component with an unstable inferior flap. We treated this with a partial lateral meniscectomy with a straight biter and a 4.0 mm shaver. We resected approximately inner half of the posterior horn of the lateral meniscus with a smooth transition to intact body of the lateral meniscus. There was no significant chondromalacia of the lateral compartment. At this time final pictures were taken and saved of the partial lateral meniscectomy. Arthroscopy instruments were removed from the joint. Arthroscopy fluid suctioned and drained from the joint. Portals were closed with 4-0 Monocryl subcuticular stitches. I injected 20 cc of half percent Naropin from the superolateral approach for local anesthetic. Sterile dressing was applied with Steri-Strips, 4 x 4's, ABD, soft roll and Abraham bandage. Anesthesia reversed without difficulty. All sponge and needle counts correct x2. Transferred to recovery in stable condition. Tourniquet time (min): 0 Condition: stable Disposition: PACU Specimens:: None Complications:: None
--- NOTE | 2022-06-13 12:54 | P.PNANES_ITS ---
[facility] Anesthesia Record Part I Anesthesia Record I Intake, IV Amount: 400 Estimated blood loss (mL): 5 Urine output (mL): 0 Blood Pressure: 113/76 SaO2: 92 Pulse Rate: 71 Respiratory Rate: 17 Temperature: 97.0 F Patient is:: Drowsy Stable to PACU at:: 12:50
--- NOTE | 2022-06-13 13:35 | SUR.PHASEI ---
1316 called and gave detailed report to Davidson Jonas RN 1320 transported via stretcher to post op. vital signs stable. denies pain at this time. left in stable condition with Davidson Jonas RN at bedside.
--- NOTE | 2022-06-16 11:39 | P.PNANES_ITS ---
[facility] Anesthesia Record Part II Anesthesia Record Part II Discharge Time: 13:20 Destination: Outpatient Procedures PACU nurse assessment reviewed?: Yes Patient Condition:: Good Anesthesia Complications:: None Swallowing reflex intact?: Yes Cyanosis?: No Blood Pressure: 130/73 Pulse Rate: 60 Temperature: 97.8 F Mental Status: Alert & Oriented Pain level:: 0 Nausea and/or vomitting:: None Intake, IV Amount: 1,000
[2022-06-16 11:40] VITALS: BP 130/73; PULSE 60; TEMP 36.6
== END 2022-06-13 13:58 | disposition home or self-care (01) ==
PROVIDERS: PCP Nurse Practitioner Family; Visit Provider Orthopaedic Surgery
PROC: (CPT 29870; principal; 2022-06-13 13:15)
DX: S83.282A Other tear of lateral meniscus, current injury, left knee, initial encounter (principal); X58.XXXA Exposure to other specified factors, initial encounter; F17.210 Nicotine dependence, cigarettes, uncomplicated; Z79.899 Other long term (current) drug therapy
CPT/HCPCS: 29881; 71045; 80053; 81001; 85025; 96374; J0131; J2405

== ENCOUNTER 2022-07-13 11:16 | Day surgery (SDC) | payer BC, SELFPAY ==
[2022-07-13] VITALS (13 sets, daily range): BP systolic 123–164; BP diastolic 59–95; PULSE 47–52; RESP 12–20; TEMP 36.9; O2SAT 95–98; BMI 26.7
[2022-07-13 11:54] LABS: Basophils # 0.2 K/mm3 (0-0.2); Basophils % 1.7 % (0.1-2.0); Eosinophils # 0.5 K/mm3 (0.0-0.4); Eosinophils % 3.8 % (0.1-12.0); Hematocrit 51.2 % (42.0-52.0); Hemoglobin 16.2 g/dL (14.1-18.0); Lymphocytes # 6.2 K/mm3 (0.7-4.5); Lymphocytes % 46.3 % (10-50); Mean Corpuscular HGB Conc 31.7 g/dL (31.8-35.4); Mean Corpuscular Hemoglobin 30.8 pg (27.0-31.2); Mean Corpuscular Volume 97.1 fl (80-94); Mean Platelet Volume 8.4 fl (7.4-10.4); Monocytes # 0.6 K/mm3 (0.1-1.0); Monocytes % 4.5 % (1.7-9.3); Neutrophils # 5.8 K/mm3 (1.8-7.8); Neutrophils % 43.6 % (37.0-80.0); Platelet Count 274 K/mm3 (142-424); Red Blood Count 5.28 M/mm3 (4.60-6.20); Red Cell Distribution Width 13.5 % (11.5-17.5); White Blood Count 13.3 K/mm3 (4.8-10.8)
[2022-07-13 12:10] LABS: Chloride 104 mmol/L (98-107); Sodium 139 mmol/L (136-145)
[2022-07-13 12:11] LABS: Potassium 4.6 mmoL/L (3.5-5.1)
[2022-07-13 12:14] LABS: Anion Gap 11.6 mEq/L (5-15); Blood Urea Nitrogen 14 mg/dl (9-20); Carbon Dioxide 28 mmol/L (22.0-30.0); Creatinine Clearance Estimated 86 mL/min (50-200); Estimated Glomerular Filt Rate 76 ml/min (>60); GFR (African American) 92 ML/MIN (>60); Glucose 111 mg/dl (74-100)
--- NOTE | 2022-07-13 12:51 | IR_ITS ---
APPROVED REPORT Patient Location: Outpatient Paper Wood Cutter: VARGAS Nuñez RT (R) PROCEDURES Left femoral arterial access Catheter placement in the right external iliac artery Right external iliac artery antegrade angiogram with unilateral runoff to the right foot INDICATION Acute right leg/foot ischemia, Laurel claudication class IV Informed consent was obtained prior to the procedure. COMPLICATIONS None Estimated Blood Loss: Less than 10 mls TECHNIQUE 1% lidocaine used to anesthetize the left femoral groin. The left femoral artery was accessed via the Seldinger technique. A 5 Polish sheath was placed in the left femoral artery and a rim guide catheter was placed into the distal abdominal aorta and used to cannulate the right common iliac artery. Table wire was used to advance down to the right external iliac artery where the catheter was advanced and antegrade angiography was performed with unilateral runoff to the right foot. Patient had a +2 right femoral pulse therefore iliofemoral angiography was not performed. At the end the procedure the apparatus was removed the sheath was removed good hemostasis was achieved using manual pressure patient was transferred to the postop putting in stable condition ANGIOGRAPHIC RESULTS Right external and right common femoral arteries are patent Right profunda femoris arteries patent Right superficial femoral artery is occluded 2 cm distal to its origin. The vessel was occluded throughout its entire course Right popliteal artery reconstitutes via collaterals from the profunda femoris and then provides inline flow to the infrageniculate vessels where the anterior posterior tibialis arteries and peroneal arteries are approximately patent. The dorsalis pedis artery and posterior tibialis artery are patent. IMPRESSION Chronic right SFA occlusion as described above Two-vessel runoff to the right foot PLAN 1. Avoidance of tobacco products 2. Xarelto 2.5 p.o. twice daily plus aspirin 81 mg daily 3. LDL less than 55 to be achieved with high intensity statin 4. Physical therapy 5. Consider Nitropaste half inch to the dorsal aspect of the foot twice daily 6. Medical management for peripheral artery disease Electronically signed by : Dario Tovar MD 07/13/2022 14:39:56
== END 2022-07-13 17:28 | disposition home or self-care (01) ==
PROVIDERS: PCP Internal Medicine; Visit Provider Internal Medicine
DX: I70.221 Atherosclerosis of native arteries of extremities with rest pain, right leg (principal); M79.604 Pain in right leg; Z79.899 Other long term (current) drug therapy; I77.1 Stricture of artery; Z79.01 Long term (current) use of anticoagulants
CPT/HCPCS: 36247; 36415; 75710; 80048; 85025; 99152; C1725; C1769; C1894; J1644; Q9966

== ENCOUNTER → 2022-08-02 13:01 | Outpatient (POV) | payer BC, SELFPAY ==
[2022-08-02 13:17] VITALS: BP 138/90; PULSE 71; RESP 18; O2SAT 98; BMI 24.1
--- NOTE | 2022-08-02 13:35 | EXP.PAIN.OV ---
HPI Data of Consult Patient: new to practice Consult date: 08/02/22 Requesting Physician: Ruth Ann Nichols APRN Primary Care Provider: Haritha Almazan APRN Consult Narrative Reason for consult: Bilateral knee pain, right thigh pain, right leg pain History of present illness: Mr. Carter is a 61 year old male who presents today as a new patient. He is a referral from Dr. Fred Philip's office. Today he rates his pain a 7 out of 10. Patient states his pain is all in his bilateral knees as well as his right thigh that radiates down to his right foot. Patient states this has been going on for years and describes this as a aching, throbbing sensation in his bilateral knees with numbness and burning in his right thigh down to his right foot. Patient states that he does go to Dr. Tovar for his cardiac history and that they did tell him he has vascular issues with his right thigh and that they were going to refer him to a vascular surgeon. Patient states he has never heard anything additional regarding this referral. Patient has tried Tylenol and ibuprofen in the past. Patient states he has significant GI issues with any NSAIDs and that Tylenol gave no additional relief. Patient has also tried heat and ice and states that heat did work better however only temporarily. Patient states he has even tried Epson salt baths with no change. Patient states in the past he has been prescribed oxycodone 5 mg following his left knee surgery where they did go in and scraped out some of the partial meniscus tear. Dr. Kaplan was the physician that did this procedure and patient states he has given him at home exercises to continue however these have aggravated his pain symptoms. Patient states that Dr. Kaplan was going to send in a physical therapy referral however he has not heard from anyone. He does state that this procedure did help a little but he continues to have residual pain. Patient states he is currently taking Doddridge and that it does help relieve some of his symptoms. He is requesting our office to take over this prescription. His Guzman is [id number]. Its been reviewed and appropriate. CC: Ruth Ann Nichols APRN [facility] Disclaimer: The information contained in this section may have been updated after the patient was seen, as this information can be updated by other users. Medical History Claudication Critical limb ischemia of right lower extremity History of gastroesophageal reflux (GERD) History of peripheral arterial disease Hyperlipidemia (~08/21/17) Hypothyroidism (~08/21/17) Neuropathy Pain of right lower extremity due to ischemia Typical angina Vitamin D deficiency (~08/21/17) Surgical History History of facial fracture repair History of intravascular stent placement History of knee surgery History of skin graft Family History Other No significant family history Social History (Updated 08/02/22 @ 13:20 by Sabrina Braswell RN) Smoking Status: Current every day smoker tobacco type: cigarettes packs per day: 2 second hand exposure: No alcohol intake: former substance use type: denies use current occupational status: unemployed Travel in the last 8 weeks: None household members: spouse and family housing: house 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
== END ==
PROVIDERS: PCP Nurse Practitioner Family; Visit Provider Nurse Practitioner Family
DX: M25.561 Pain in right knee (principal); M25.562 Pain in left knee; M79.651 Pain in right thigh; M79.604 Pain in right leg; I99.8 Other disorder of circulatory system
CPT/HCPCS: 99202; G0463

== ENCOUNTER → 2022-08-02 13:47 | Outpatient (CLI) | payer BC, SELFPAY ==
--- NOTE | 2022-08-02 13:52 | XR_ITS ---
FINAL REPORT CLINICAL HISTORY: KNEE PAIN, right for 4 to 5 months, hx of infection. COMPARISON: 01/28/2021 FINDINGS: Right knee Three views were obtained. There is no acute fracture or dislocation. The joint spaces appear normal. There is a small calcification in the region of the medial meniscus, stable. A vascular stent is seen in the distal thigh. IMPRESSION: No acute process. Reviewed, Interpreted and Dictated by Gus Menard III, MD Transcribed by La Nena Rogers Authenticated and [facility]
== END ==
PROVIDERS: PCP Nurse Practitioner Family; Visit Provider Nurse Practitioner Family
DX: M25.561 Pain in right knee (principal)
CPT/HCPCS: 73562

== ENCOUNTER → 2022-08-14 14:58 | Outpatient (POV) | payer BC, SELFPAY ==
--- NOTE | 2022-08-14 15:11 | EXP.PAIN.SOA ---
[facility] Pain Management SOAP Note Subjective:: Patient is a pleasant 61-year-old male who presents today for follow-up of right knee x-ray. We are currently treating the patient for bilateral knee pain, right thigh pain, right leg pain. Today he rates his pain a 5 out of 10. Patient denies any new trauma or injury. Patient denies any change to the location or type of pain he experiences. Patient states he continues to have pain in his bilateral knees and right leg. Patient does describe this as a aching, throbbing sensation that is worse with increased activity. Patient does have numbness and burning down his right thigh to his right foot. Patient does have a cardiac history including a right vascular stent to his distal thigh. Patient states he is scheduled for a vascular appointment in the future. He states he has not gotten the official date but that it has been sent for referral. Patient states that Tylenol and ibuprofen caused significant GI issues. He does use heat and ice however this only provides temporary relief. Patient did have left knee surgery in the past and was prescribed oxycodone 5 mg however he states that its this medication did run out and he was given [place] however he took his last pill today. Patient is requesting something stronger for his pain symptoms at today's visit. Patient states that Dr. Kaplan's office did tell him they could not prescribe any additional pain medication. Patient is currently prescribed cyclobenzaprine 10 mg twice daily and ropinirole 1 mg 1-2 tabs daily as needed. Patient is going to physical therapy currently and states this has provided some additional relief. His Guzman is [id number]. Its been reviewed and appropriate. Review of Systems: General: No recent weight changes, no fever, no sleep disturbances Respiratory: No cough, no shortness of air, no recurring pulmonary infections Cardiovascular/peripheral vascular: No chest pain, no palpitations, no edema, no shortness of breath Gastrointestinal: No new onset incontinence, normal bowel movements reported Genitourinary: No new onset incontinence Musculoskeletal: Right knee pain Psychiatric: [Normal mood/affect] Neurological: [Denies weakness in extremities], [denies balance issues] Objective:: Physical Exam: General: Alert and oriented x3, no acute distress, pleasant and cooperative Lungs: Respirations even and unlabored, symmetrical chest expansion Eyes: PERRL Musculoskeletal: Flexion and extension of right knee somewhat guarded secondary to pain, [antalgic gait noted] Neurological: Speech clear, no gross sensory deficit COMPARISON: 01/28/2021 FINDINGS: Right knee? Three views were obtained.? There is no acute fracture or dislocation.? The joint spaces appear normal.? There is a small calcification in the region of the medial meniscus, stable.? A vascular stent is seen in the distal thigh. IMPRESSION: No acute process. Reviewed, Interpreted and Dictated by Gus Menard III, MD Transcribed by La Nena Rogers Authenticated and [facility] Assessment:: Bilateral knee pain, right thigh pain, right leg pain Plan:: Patient is experiencing significant pain in his bilateral knees and right leg. I will alter his current dosage of cyclobenzaprine 10 mg twice daily to 3 times daily and provide a 1 month supply of this medication. I will also change his ropinirole 1 mg to ropinirole 2 mg twice daily and provide a 1 month supply of this medication. I will order the patient a CT without contrast of his right knee. Patient will follow-up back in clinic following this imaging. Patient has been instructed to contact the clinic with any concerns before the next appointment. Dr. Moreno has reviewed this note and agrees with this plan of care. This note was dictated using voice recognition software and make contain errors or omissions. [facility] Disclaimer: The informati
[2022-08-14 15:29] VITALS: BP 153/91; PULSE 81; RESP 18; O2SAT 98; BMI 26.6
== END | disposition home or self-care (01) ==
PROVIDERS: PCP Nurse Practitioner Family; Visit Provider Nurse Practitioner Family
DX: M25.561 Pain in right knee (principal); M25.562 Pain in left knee; M79.651 Pain in right thigh; M79.604 Pain in right leg
CPT/HCPCS: 99212; G0463

== ENCOUNTER → 2022-08-28 14:28 | Outpatient (CLI) | payer BC, SELFPAY ==
--- NOTE | 2022-08-28 14:33 | CT_ITS ---
FINAL REPORT TECHNIQUE: Thin section axial images were obtained through the right knee without contrast. Reconstruction images were obtained from the axial data. Exam was performed using dose reduction technique. CLINICAL HISTORY: RT KNEE PAIN FINDINGS: There is no acute fracture or dislocation. No acute osseous abnormality is identified. No bony destruction is identified. Joint spaces are preserved. There is prepatellar soft tissue edema. There is subcutaneous edema anterior to the patellar tendon. There is no significant joint effusion. There is no loculated fluid collection. The distal aspect of a vascular stent in the femoral artery is visualized. IMPRESSION: No acute osseous abnormality or joint effusion of the right knee. Anterior soft tissue edema, nonspecific. Reviewed, Interpreted and Dictated by Rocio Díaz MD Transcribed by Kellen Barrios Authenticated and [facility]
== END ==
PROVIDERS: PCP Nurse Practitioner Family; Visit Provider Nurse Practitioner Family
DX: M25.561 Pain in right knee (principal)
CPT/HCPCS: 73700

== ENCOUNTER → 2022-09-04 08:49 | Outpatient (POV) | payer BC, SELFPAY ==
--- NOTE | 2022-09-04 09:25 | EXP.PAIN.SOA ---
[facility] Pain Management SOAP Note Subjective:: Patient is a pleasant 61-year-old male who presents today for follow-up of right knee CT without contrast.? We are currently treating the patient for bilateral knee pain, right thigh pain, right leg pain.? Today he rates his pain a 2 out of 10.? Patient denies any new trauma or injury.? Patient denies any change to the location or type of pain he experiences.? Patient states that he recently had a right knee injection by Dr. Kaplan however this caused significant more pain. He does continue to use a TENS unit at home and is seeing physical therapy twice a week. Patient states that this does help occasionally however some visits do cause more pain symptoms. Patient was recently prescribed compounding cream however he stated he cannot tolerate this due to a reaction on his skin. He states it did feel like a burning sensation and had to wash it off. He does describe his knee pain as a aching, throbbing sensation that is worse with increased activity.? Patient does have numbness and burning down his right thigh to his right foot.? He states that he is still waiting to hear from the referral to a vascular doctor at this time. Patient does have a cardiac history including a right vascular stent to his distal thigh.? He states that he continues to use [id number] Tylenol and ibuprofen with no improvement. Patient was prescribed oxycodone in the past however he states that the [place] he took previously helped better. Patient has been taking Flexeril 10 mg twice daily for over 20 years and states he does not notice significant relief with this. He also takes ropinirole 1 mg 1-2 tabs daily as needed.? His Guzman is [id number].? Its been reviewed and appropriate. Review of Systems: General: No recent weight changes, no fever, no sleep disturbances Respiratory: No cough, no shortness of air, no recurring pulmonary infections Cardiovascular/peripheral vascular: No chest pain, no palpitations, no edema, no shortness of breath Gastrointestinal: No new onset incontinence, normal bowel movements reported Genitourinary: No new onset incontinence Musculoskeletal: Knee pain, leg pain Psychiatric: [Normal mood/affect] Neurological: [Denies weakness in extremities], [denies balance issues] Objective:: Physical Exam: General: Alert and oriented x3, no acute distress, pleasant and cooperative Lungs: Respirations even and unlabored, symmetrical chest expansion Eyes: PERRL Musculoskeletal: Flexion and extension of bilateral knees somewhat guarded secondary to pain, [antalgic gait noted] Neurological: Speech clear, no gross sensory deficit Assessment:: Bilateral knee pain, right thigh pain, right leg pain, lumbar radiculopathy symptoms Plan:: Patient continues to experience significant pain in his right knee with radiating symptoms to his toes. Patient's CT imaging of his right knee did show an anterior soft tissue edema. Patient continues to have limited range of motion of his right knee and I have discussed that he may benefit from a genicular nerve block in the future. I have recommended that the patient talk to Dr. Kaplan regarding the soft tissue edema finding. I have also discussed with the patient that this may be radicular symptoms coming from his lumbar spine. Patient denies any recent imaging. I will order an x-ray of his low back. I will also change his Flexeril to methocarbamol 750 mg twice daily and provide a 2-week supply of this medication. Patient will return to clinic following his lumbar x-ray for reevaluation of symptoms and plan of care. Patient has been instructed to contact the clinic with any concerns before the next appointment. Dr. Moreno has reviewed this note and agrees with this plan of care. This note was dictated using voice recognition software and make contain errors or omissions. [facility] Disclaimer: The information contained in this section may have been updated after the patient was seen, as this inform
[2022-09-04 10:46] VITALS: BP 141/84; PULSE 64; RESP 18; O2SAT 98; BMI 26.9
== END | disposition home or self-care (01) ==
PROVIDERS: PCP Nurse Practitioner Family; Visit Provider Nurse Practitioner Family
DX: M54.16 Radiculopathy, lumbar region (principal); M25.561 Pain in right knee; M25.562 Pain in left knee; M79.604 Pain in right leg; M79.651 Pain in right thigh; F17.210 Nicotine dependence, cigarettes, uncomplicated; Z79.899 Other long term (current) drug therapy
CPT/HCPCS: 99212; G0463

== ENCOUNTER 2022-09-07 11:00 | Outpatient (RCR) | payer BC, SELFPAY ==
--- NOTE | 2022-08-08 15:10 | HMH.PTOPEV ---
PT Outpatient Evaluation Rehab PT Outpatient Evaluation Start: 08/08/22 14:54 Freq: Status: Active Protocol: Document 08/08/22 14:54 ROB (Rec: 08/08/22 15:10 ROB [id number]) E-signed By Armando Beltrán, PT Outpatient Therapy Subjective History Subjective History Patient is a 61 year old male presenting to outpatient PT with reports of R knee pain starting approx 1 year ago. ROM and MMT WNL. Suspect pain intermittent claudication of RLE. Patient has previously had 3 RLE stents placed secondary to circulatory issues. Comorbidities include L knee meniscectomy, hypothyroidism, HTN, HL and facial reconstruction. Chief Complaint Pain,Weakness Symptom Type Stabbing,Numbness,Tingling Symptoms Relieved By Rest/Positioning,Heat, Prescription Meds Symptoms Aggravated By Standing,Physical Activity, Walking Prior Functional Limitations None Current Functional Limitations Housework,Standing,Walking, Stairs Symptom Description Constant but Variable Level of pain today (0-10) 5 Pain scale - at its best (0-10) 4 Pain scale - at its worst (0-10) 10 Hip/Knee Eval Gait Observation General Gait Pattern Observation Antalgic Gait,Decrease Weight Bear (R) Palpation Tenderness right Knee Palpation Finding Tenderness Knee Palpation Overall Comment popliteal fossa 3/4 MMT Hip Strength Reason Not Measured WFL Knee Strength Reason Not Measured WFL ROM Hip ROM Reason Not Measured Within Functional Limits Knee ROM Reason Not Measured Within Functional Limits Special Tests Knee Anterior Nasreen Test Negative Right Knee Valgus Stress Test Negative Right Knee Varus Stress Test Negative Right Knee Garo Test Negative Right Outpatient Therapy Assessment Impairments Problems/Impairmments Palpation Tenderness,Impaired Gait Pattern,Impaired Walking, Impaired Standing,Impaired Household Care,Impaired Stair Climbing,Impaired Incline Stepping,Impaired Stepping on Uneven Surface,Impaired Squatting,Impaired Bending, Impaired Work Activities,
== END 2022-09-07 11:05 | disposition home or self-care (01) ==
LOC: PT 11:00
PROVIDERS: PCP Nurse Practitioner Family; Visit Provider Nurse Practitioner Family
DX: M25.561 Pain in right knee (principal); M25.562 Pain in left knee
CPT/HCPCS: 97010; 97014; 97110; 97163; 97530; G0283

== ENCOUNTER → 2022-09-12 16:03 | Outpatient (CLI) | payer BC, SELFPAY ==
--- NOTE | 2022-09-12 16:10 | XR_ITS ---
PROCEDURE INFORMATION: Exam: XR Lumbosacral Spine Exam date and time: 09/12/2022 4:12 PM Age: 61 years old Clinical indication: Low back pain; Additional info: Radicular pain TECHNIQUE: Imaging protocol: Radiologic exam of the lumbosacral spine. Views: 4 or 5 views. COMPARISON: DX [id number] XR lumbar spine 6V w bending 01/04/2018 2:35 PM FINDINGS: Bones/joints: [id number] degenerative changes at L1-L2 with prominent spurring and slight disc space narrowing that has developed in the interval. Interval development of mild degenerative spurring at L2-L3. Mild degenerative spurring at L4-L5 appears similar to previous. Alignment vertebral body heights are preserved. Soft tissues: Unremarkable. Other findings: No other findings. IMPRESSION: Degenerative changes most pronounced at L1-L2 with interval worsening.
== END ==
PROVIDERS: PCP Emergency Medicine; Visit Provider Anesthesiology
DX: M54.16 Radiculopathy, lumbar region (principal)
CPT/HCPCS: 72110

== ENCOUNTER → 2022-09-27 09:17 | Outpatient (POV) | payer BC, SELFPAY ==
[2022-09-27 09:49] VITALS: BP 133/80; PULSE 61; RESP 20; O2SAT 96; BMI 26.6
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
== END | disposition home or self-care (01) ==
PROVIDERS: PCP Nurse Practitioner Family; Visit Provider Nurse Practitioner Family
DX: M51.16 Intervertebral disc disorders with radiculopathy, lumbar region (principal); M79.604 Pain in right leg; M79.651 Pain in right thigh; M25.561 Pain in right knee; M25.562 Pain in left knee
CPT/HCPCS: 99212; G0463

== ENCOUNTER → 2022-10-04 08:53 | Outpatient (POV) | payer BC, SELFPAY ==
[2022-10-04 09:11] VITALS: BP 137/81; PULSE 57; RESP 18; O2SAT 97; BMI 27.3
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
== END ==
PROVIDERS: PCP Nurse Practitioner Family; Visit Provider Nurse Practitioner Family
DX: M54.16 Radiculopathy, lumbar region (principal); M54.50 Low back pain, unspecified; M25.561 Pain in right knee; M25.562 Pain in left knee; M79.652 Pain in left thigh; M79.651 Pain in right thigh; M79.604 Pain in right leg
CPT/HCPCS: 99212; G0463

== ENCOUNTER 2022-10-25 11:00 | Outpatient (RCR) | payer BC, SELFPAY ==
--- NOTE | 2022-10-11 14:16 | HMH.PTOPEV ---
PT Outpatient Evaluation Rehab PT Outpatient Evaluation Start: 10/11/22 13:42 Freq: Status: Active Protocol: Document 10/11/22 13:57 ORB (Rec: 10/11/22 14:16 ROB [id number]) E-signed By Armando Beltrán, PT Outpatient Therapy Subjective History Subjective History Patient is 61 year old male preseneting to outpatient PT with rereports of chronic LBP starting approx 8 years ago. No other comorbidities to report. Chief Complaint Pain,Stiff Symptom Type Sharp Prior Functional Limitations None Current Functional Limitations Lifting,Housework,Standing, Sitting,Walking,Bending/ Stooping Symptom Description Constant but Variable Level of pain today (0-10) 5 Pain scale - at its best (0-10) 3 Pain scale - at its worst (0-10) 9 Lumbopelvic Eval Posture Thoracic Spine Posture Standing Position Neutral Lumbar Spine Posture Standing Position Neutral Range of Motion Lumbar Spine Active Flexion Range of 67 Motion (degrees) Lumbar Spine Active Extension Range of 17 Motion (degrees) Left Lumbar Spine Lateral Flexion Active 28 Range of Motion (degrees) Right Lumbar Spine Lateral Flexion 29 Active Range of Motion (degrees) Manual Muscle Test Bilateral Knee Extension Strength Grade 5 Normal Knee Flexion Strength Grade 5 Normal Hip Flexion Strength Grade 5 Normal Extensor Hallucis Longus Strength Grade 5 Normal Ankle Dorsiflexion Strength Grade 5 Normal Gastronemius/Soleus Strength Grade 5 Normal Special Tests Hip Ronnie (ALEX) Test Positive Left,Positive Right Hip Tiara Test Positive Left,Positive Right Hip Piriformis Test Positive Left,Positive Right Hip Bowstring (Cram) Test Positive Left,Positive Right Lumbar Long [place] Distraction Test/Manual Positive Traction Outpatient Therapy Assessment Impairments Problems/Impairmments Palpation Tenderness,Impaired Range of Motion,Impaired Strength,Impaired Walking, Impaired Standing,Impaired Lifting,Impaired Household Care,Impaired Stair Climbing, Impaired Incline Stepping, Impaired Stepping on Uneven Surface,Impaired Squatting, Impaired Bending,Impaired Recreational Activities, Impaired Running,Impaired Work Activit
== END 2022-10-25 11:05 | disposition home or self-care (01) ==
LOC: PT 11:00
PROVIDERS: PCP Nurse Practitioner Family; Visit Provider Nurse Practitioner Family
DX: M54.50 Low back pain, unspecified (principal); M79.604 Pain in right leg
CPT/HCPCS: 97012; 97110; 97163

== ENCOUNTER → 2022-11-09 09:11 | Outpatient (POV) | payer BC, SELFPAY ==
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
[2022-11-09 10:17] VITALS: BP 124/79; PULSE 59; RESP 18; O2SAT 98; BMI 27.3
== END | disposition home or self-care (01) ==
PROVIDERS: PCP Nurse Practitioner Family; Visit Provider Nurse Practitioner Family
DX: M54.16 Radiculopathy, lumbar region (principal); M54.50 Low back pain, unspecified; M25.561 Pain in right knee; M25.562 Pain in left knee; M79.604 Pain in right leg
CPT/HCPCS: 99212; G0463

== ENCOUNTER → 2022-11-16 10:29 | Outpatient (CLI) | payer BC, SELFPAY ==
--- NOTE | 2022-11-16 10:34 | CT_ITS ---
FINAL REPORT TECHNIQUE: Axial imaging of the lumbar spine was obtained without contrast. Sagittal and coronal reformatted images were also obtained and reviewed. This study was performed with techniques to keep radiation doses as low as reasonably achievable (ALARA). Individualized dose reduction techniques using automated exposure control or adjustment of mA and/or kV according to the patient's size were employed. CLINICAL HISTORY: LOWER BACK PAIN COMPARISON: 01/04/2018 FINDINGS: There is no fracture. The vertebral alignment is normal. The disc spaces are preserved.There is no evidence of significant central canal stenosis. L1-L2: There is an annular bulge and vertebral osteophytes. No evidence of central canal stenosis or neural foraminal narrowing. L2-L3: There is an annular bulge present. There is a small left posterior lateral disc protrusion. There is mild left neural foraminal narrowing. L3-L4: There is an annular bulge. There is a left foraminal disc protrusion which appears worse as compared to the prior exam. There is mild right and moderate left neural foraminal narrowing. L4-L5: There is an annular bulge present. There is mild right and moderate left neural foraminal narrowing. This appears stable as compared to the prior exam. L5-S1: There is an annular bulge. There is mild right and moderate left neural foraminal narrowing. This appears stable as compared to the prior exam. IMPRESSION: Multilevel degenerative change without acute bony abnormality. Disc protrusions at L2-3 and L3-4. Reviewed, Interpreted and Dictated by Gus Menard III, MD Transcribed by Raegan Stern Authenticated and [facility]
== END ==
PROVIDERS: PCP Nurse Practitioner Family; Visit Provider Nurse Practitioner Family
DX: M54.50 Low back pain, unspecified (principal)
CPT/HCPCS: 72131

== ENCOUNTER → 2022-11-24 08:54 | Outpatient (POV) | payer BC, SELFPAY ==
[2022-11-24 09:31] VITALS: BP 144/79; PULSE 54; RESP 18; O2SAT 97; BMI 27.3
--- NOTE | 2022-11-24 10:15 | A.OFFVIS_ITS ---
[facility] Pain Management SOAP Note Subjective:: Patient is a 62-year-old male comes our clinic today for methocarbamol refill. He is currently being managed for chronic low back pain as well as bilateral hip and leg radicular symptoms with methocarbamol 750 mg 1 p.o. 3 times daily. Patient also taking Tylenol 3 from his primary care physician. Patient is requesting a stronger medication today. However, I informed the patient we would not write him any additional narcotics. His Guzman #[id number] has been reviewed and appropriate. His options are injective therapy, muscle relaxers, physical therapy. Patient not interested in any injective therapy or physical therapy. Objective:: Patient is awake alert [place] x3. In no acute distress. Flexion-extension cervical lumbar spine normal. Deep tendon reflexes upper and lower extremities normal. Motor strength upper and lower extremities normal. There is no gross sensory deficit. Gait is normal Assessment:: Degenerative disc lumbar spine multilevels. Lumbar radiculopathy. Disc bulge L2-3, L3-4. Plan:: Patient not do any refill on the methocarbamol at this time. He will call us if in fact he needs a refill in the near future. [facility] Disclaimer: The information contained in this section may have been updated after the p atient was seen, as this information can be updated by other users. Medical History Claudication Critical limb ischemia of right lower extremity History of gastroesophageal reflux (GERD) History of peripheral arterial disease Hyperlipidemia (~08/21/17) Hypothyroidism (~08/21/17) Neuropathy Pain of right lower extremity due to ischemia Typical angina Vitamin D deficiency (~08/21/17) Surgical History History of facial fracture repair History of intravascular stent placement History of knee surgery History of skin graft Family History Other No significant family history Social History Smoking Status: Current every day smoker tobacco type: cigarettes packs per day: 2 second hand exposure: No alcohol intake: former substance use type: denies use current occupational status: other Travel in the last 8 weeks: None household members: spouse and family housing: house 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
== END ==
PROVIDERS: PCP Nurse Practitioner Family; Visit Provider Nurse Anesthetist, Certified Registered
DX: M51.16 Intervertebral disc disorders with radiculopathy, lumbar region (principal)
CPT/HCPCS: 99212; G0463

== ENCOUNTER → 2022-11-30 11:58 | Outpatient (CLI) | payer BC, SELFPAY | PROVIDERS: PCP Physician Assistant; Visit Provider Physician Assistant | DX: R42 Dizziness and giddiness (principal) ==

== ENCOUNTER → 2022-11-30 13:35 | Outpatient (CLI) | payer BC, SELFPAY ==
[2022-11-30 13:09] LABS: Basophils # 0.1 K/mm3 (0-0.2); Basophils % 0.8 % (0.1-2.0); Eosinophils # 0.5 K/mm3 (0.0-0.4); Eosinophils % 4.3 % (0.1-12.0); Hemoglobin 15.8 g/dL (14.1-18.0); Lymphocytes % 41.5 % (10-50); Mean Corpuscular Hemoglobin 30.3 pg (27.0-31.2); Mean Platelet Volume 8.6 fl (7.4-10.4); Monocytes # 0.7 K/mm3 (0.1-1.0); Monocytes % 5.4 % (1.7-9.3); Neutrophils # 5.7 K/mm3 (1.8-7.8); Neutrophils % 47.9 % (37.0-80.0); Platelet Count 337 K/mm3 (142-424); Red Blood Count 5.22 M/mm3 (4.60-6.20)
[2022-11-30 13:29] LABS: Alanine Aminotransferase 33 U/L (12-78); Albumin Level 4.7 g/dl (3.5-5.0); Albumin/Globulin Ratio 1.7 (1.1-1.8); Alkaline Phosphatase 73 U/L (38-126); Anion Gap 15.4 mEq/L (5-15); Aspartate Amino Transferase 33 U/L (17-59); Bilirubin,Total 0.5 mg/dl (0.2-1.3); Blood Urea Nitrogen 14 mg/dl (9-20); Calcium 9.1 mg/dl (8.4-10.2); Carbon Dioxide 27 mmol/L (22.0-30.0); Chloride 101 mmol/L (98-107); Estimated Glomerular Filt Rate 76 ml/min (>60); GFR (African American) 92 ML/MIN (>60); Globulin 2.8 g/dL (1.3-3.2); Glucose 113 mg/dl (74-100); Potassium 4.4 mmoL/L (3.5-5.1); Sodium 139 mmol/L (136-145); Total Protein,Serum 7.5 g/dl (6.3-8.2)
== END ==
PROVIDERS: PCP Physician Assistant; Visit Provider Physician Assistant
DX: R42 Dizziness and giddiness (principal)
CPT/HCPCS: 80053; 85025

== ENCOUNTER → 2022-12-04 13:34 | Outpatient (POV) | payer BC, SELFPAY ==
[2022-12-04 14:14] VITALS: BP 128/89; PULSE 83; RESP 18; O2SAT 98; BMI 26.3
--- NOTE | 2022-12-04 14:14 | EXP.PAIN.SOA ---
[facility] Pain Management SOAP Note Subjective:: Patient is a pleasant 62-year-old male who presents today for follow-up and medication refill.? We are currently treating the patient for low back pain with lumbar radiculopathy symptoms, bilateral knee pain, right thigh pain, right leg pain.? Today he rates his pain an 4 out of 10.? Patient denies any new trauma or injury.? Patient denies any change to location or type of pain he experiences.? Patient was recently changed to methocarbamol however he states that he recently also had to take some NSAIDs and either the methocarbamol or the combination of these 2 medications caused significant GI related issues. He states he was throwing up and discontinued this medication. He is requesting to go back to the Flexeril that he has been on in the past. He is still scheduled for a vascular appointment on January 05 for an ultrasound on his leg.? His Guzman is [id number].? Its been reviewed and appropriate. Review of Systems: General: No recent weight changes, no fever, no sleep disturbances Respiratory: No cough, no shortness of air, no recurring pulmonary infections Cardiovascular/peripheral vascular: No chest pain, no palpitations,? no edema, no shortness of breath Gastrointestinal: No new onset incontinence, normal bowel movements reported Genitourinary: No new onset incontinence Musculoskeletal: Low back pain Psychiatric: [Normal mood/affect] Neurological: [Denies weakness in extremities], [denies balance issues] Objective:: Physical Exam: General: Alert and oriented x3, no acute distress, pleasant and cooperative Lungs: Respirations even and unlabored, symmetrical chest expansion Eyes: PERRL Musculoskeletal: Flexion and extension of lumbar [spine] somewhat guarded secondary to pain, [antalgic gait noted] Neurological: Speech clear, no gross sensory deficit Assessment:: Low back pain with lumbar radiculopathy symptoms, bilateral knee pain, right thigh pain, right leg pain Plan:: I will send in a prescription of Flexeril 10 mg 3 times daily and provide a 1 month supply of this medication. Patient will follow-up in clinic in 1 month for reevaluation of symptoms, medication refill and follow-up. Patient has been instructed to contact the clinic with any concerns before the next appointment. Dr. Moreno has reviewed this note and agrees with this plan of care. This note was dictated using voice recognition software and make contain errors or omissions. [facility] Disclaimer: The information contained in this section may have been updated after the patient was seen, as this information can be updated by other users. Medical History Claudication Critical limb ischemia of right lower extremity History of gastroesophageal reflux (GERD) History of peripheral arterial disease Hyperlipidemia (~08/21/17) Hypothyroidism (~08/21/17) Neuropathy Pain of right lower extremity due to ischemia Typical angina Vitamin D deficiency (~08/21/17) Surgical History History of facial fracture repair History of intravascular stent placement History of knee surgery History of skin graft Family History Other No significant family history Social History Smoking Status: Current every day smoker tobacco type: cigarettes packs per day: 2 second hand exposure: No alcohol intake: former substance use type: denies use current occupational status: other Travel in the last 8 weeks: None household members: spouse and family housing: house 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
== END | disposition home or self-care (01) ==
PROVIDERS: PCP Nurse Practitioner Family; Visit Provider Nurse Practitioner Family
DX: M54.16 Radiculopathy, lumbar region (principal); M54.50 Low back pain, unspecified; M25.561 Pain in right knee; M25.562 Pain in left knee; M79.604 Pain in right leg
CPT/HCPCS: 99212; G0463

== ENCOUNTER → 2023-01-04 13:45 | Outpatient (POV) | payer BC, SELFPAY ==
--- NOTE | 2023-01-04 14:00 | EXP.PAIN.SOA ---
[facility] Pain Management SOAP Note Subjective:: Patient is a pleasant 62-year-old male who presents today for follow-up.? We are currently treating the patient for low back pain with lumbar radiculopathy symptoms, bilateral knee pain, right thigh pain, right leg pain.? Today he rates his pain an 5 out of 10.? Patient denies any new trauma or injury.? Patient denies any change to location or type of pain he experiences.? At his last visit we did prescribe Flexeril 10 mg 3 times daily. Patient denies any side effects from this medication and states it does seem to help his pain symptoms. He is requesting a refill at today's visit. He does also state that he did have a recent sinus infection that Dr. Bernal prescribed a steroid pack and this did help provide additional relief. He does state that his previous vascular appointment for the ultrasound on his leg has been rescheduled for February 25. His Guzman is [id number].? Its been reviewed and appropriate. Review of Systems: General: No recent weight changes, no fever, no sleep disturbances Respiratory: No cough, no shortness of air, no recurring pulmonary infections Cardiovascular/peripheral vascular: No chest pain, no palpitations,? no edema, no shortness of breath Gastrointestinal: No new onset incontinence, normal bowel movements reported Genitourinary: No new onset incontinence Musculoskeletal: Low back pain Psychiatric: [Normal mood/affect] Neurological: [Denies weakness in extremities], [denies balance issues] Objective:: Physical Exam: General: Alert and oriented x3, no acute distress, pleasant and cooperative Lungs: Respirations even and unlabored, symmetrical chest expansion Eyes: PERRL Musculoskeletal: Flexion and extension of lumbar [spine] somewhat guarded secondary to pain, [antalgic gait noted] Neurological: Speech clear, no gross sensory deficit Assessment:: Low back pain with lumbar radiculopathy symptoms, bilateral knee pain, right thigh pain, right leg pain Plan:: We will refill the patient's Flexeril 10 mg 3 times a day and provide a 3-month supply of this medication. Patient will return to clinic in 3 months for reevaluation of symptoms and medication refill. Patient has been instructed to contact the clinic with any concerns before the next appointment. Dr. Moreno has reviewed this note and agrees with this plan of care. This note was dictated using voice recognition software and make contain errors or omissions. [facility] Disclaimer: The information contained in this section may have been updated after the patient was seen, as this information can be updated by other users. Medical History Claudication Critical limb ischemia of right lower extremity History of gastroesophageal reflux (GERD) History of peripheral arterial disease Hyperlipidemia (~08/21/17) Hypothyroidism (~08/21/17) Neuropathy Pain of right lower extremity due to ischemia Typical angina Vitamin D deficiency (~08/21/17) Surgical History History of facial fracture repair History of intravascular stent placement History of knee surgery History of skin graft Family History Other No significant family history Social History Smoking Status: Current every day smoker tobacco type: cigarettes packs per day: 2 second hand exposure: No alcohol intake: former substance use type: denies use current occupational status: other Travel in the last 8 weeks: None household members: spouse and family housing: house 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
[2023-01-04 15:47] VITALS: BP 151/91; PULSE 70; RESP 18; O2SAT 96; BMI 26.3
== END | disposition home or self-care (01) ==
PROVIDERS: Visit Provider Nurse Practitioner Family
DX: M54.16 Radiculopathy, lumbar region (principal); M25.561 Pain in right knee; M25.562 Pain in left knee; M79.651 Pain in right thigh; M79.604 Pain in right leg
CPT/HCPCS: 99212; G0463

== ENCOUNTER → 2023-02-05 10:44 | Outpatient (POV) | payer BC, SELFPAY ==
[2023-02-05 10:57] VITALS: BP 132/80; PULSE 65; RESP 17; O2SAT 98; BMI 26.3
--- NOTE | 2023-02-05 10:57 | EXP.PAIN.SOA ---
[facility] Pain Management SOAP Note Subjective:: Patient is a pleasant 62-year-old male who presents today for follow-up. We are currently treating the patient for degenerative disc disease of lumbar spine with lumbar radiculopathy symptoms, bilateral knee pain, right thigh pain, right leg pain. Today he rates his pain a 9 out of 10. Patient denies any new trauma or injury. He states he continues to have pain into his bilateral knees. He describes it as an aching, throbbing sensation that is worse with increased activity. Patient does state that he is currently working on a job where he had to remove a wall and put drywall back up as well as change out electrical sockets and it does make it more difficult on his knee pain. Patient does state the pain interferes with his ability perform activities of daily living such as cooking or cleaning or even simple ambulation. Patient has had previous bilateral knee injections that did provide significant relief. He is interested in repeating these injections at today's visit. Patient is also scheduled for an EGD coming up this week here at [facility]. Patient is currently managed with Flexeril 10 mg 3 times a day and at our last visit was given a 3-month supply of this medication. He does not need refills at this time. Patient does also state he continues to have leg cramping that is worse at night he is currently managed on ropinirole 2 mg twice daily however he states he does not feel like this is working as well. His Guzman has been reviewed and is appropriate. Review of Systems: General: No recent weight changes, no fever, no sleep disturbances Respiratory: No cough, no shortness of air, no recurring pulmonary infections Cardiovascular/peripheral vascular: No chest pain, no palpitations, no edema, no shortness of breath Gastrointestinal: No new onset incontinence, normal bowel movements reported Genitourinary: No new onset incontinence Musculoskeletal: Bilateral knee pain, leg pain Psychiatric: [Normal mood/affect] Neurological: [Denies weakness in extremities], [denies balance issues] Objective:: Physical Exam: General: Alert and oriented x3, no acute distress, pleasant and cooperative Lungs: Respirations even and unlabored, symmetrical chest expansion Eyes: PERRL Musculoskeletal: Flexion and extension of bilateral knees somewhat guarded secondary to pain, [antalgic gait noted] Neurological: Speech clear, no gross sensory deficit Assessment:: Degenerative disc disease of lumbar spine with lumbar radiculopathy symptoms, bilateral knee pain, restless leg syndrome, right thigh pain, right leg pain Plan:: Patient is experiencing significant pain in his bilateral knees with limited range of motion. I have discussed with the patient that he may benefit from bilateral knee intra-articular injections. Risk and benefits were discussed with the patient and he would like to proceed forward with this plan of care. I have counseled the patient that I will increase his restless leg medication to ropinirole 3 mg twice daily and provide a 1 month supply of this medication. I have discussed with him to discontinue his previous dosage. Patient will be scheduled for bilateral intra-articular knee injections. Patient has been instructed to contact the clinic with any concerns before the next appointment. Dr. Moreno has reviewed this note and agrees with this plan of care. This note was dictated using voice recognition software and make contain errors or omissions. [facility] Disclaimer: The information contained in this section may have been updated after the patient was seen, as this information can be updated by other users. Medical History Claudication Critical limb ischemia of right lower extremity History of gastroesophageal reflux (GERD) History of peripheral arterial disease Hyperlipidemia (~08/21/17) Hypothyroidism (~08/21/17) Neuropathy Pain of right lower extr
== END | disposition home or self-care (01) ==
PROVIDERS: Visit Provider Nurse Practitioner Family
DX: M51.16 Intervertebral disc disorders with radiculopathy, lumbar region (principal); M25.561 Pain in right knee; M25.562 Pain in left knee; M79.651 Pain in right thigh; M79.604 Pain in right leg; G25.81 Restless legs syndrome
CPT/HCPCS: 99212; G0463

== ENCOUNTER 2023-02-13 10:48 | Day surgery (SDC) | payer BC, SELFPAY ==
[2023-02-13 11:06] VITALS: BP 137/78; PULSE 60; RESP 16; TEMP 36.3; O2SAT 96; BMI 25.8
--- NOTE | 2023-02-13 11:09 | EXP.PAIN.PRO ---
Procedure Date: 02/13/23 Time: 11:10 Anesthesiologist:: Ronnie Gerber CRNA Complications:: None Pre-procedure Diagnosis:: Osteoarthritis bilateral knees. Chronic bilateral knee pain. Post-procedure Diagnosis:: Same. Indications for Procedure:: Patient is a very pleasant 62-year-old male that comes our clinic today for bilateral intra-articular knee injections. Patient states he has had pain in his bilateral knees for quite some time. 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 Patient states knees begin to hurt when standing for any length of time. Pain increases with ambulation as well. He rates his pain 8/10. Procedure Details:: Procedure Details: Bilateral intra-articular knee injection Informed consent was obtained risk and benefits of the procedure were explained to the patient. Patient was taken the procedure room both knees were prepped using ChloraPrep. A 25-gauge needle was used to inject 10 mL bupivacaine 0.25% and Depo-Medrol 40 mg into each knee. We did a total of 80 mg Depo-Medrol for both knees. The patient tolerated the procedure well with no complications. Plan and Disposition:: Patient was discharged without incident.
[2023-02-13 11:16] VITALS: BP 131/83; PULSE 60; RESP 18; O2SAT 97
[2023-02-13 11:18] VITALS: BP 131/83; PULSE 60; RESP 18; O2SAT 97
[2023-02-13 11:23] VITALS: BP 139/86; PULSE 60; RESP 16; O2SAT 96
== END 2023-02-13 11:23 | disposition home or self-care (01) ==
PROVIDERS: PCP Nurse Practitioner Family; Visit Provider Nurse Anesthetist, Certified Registered
DX: M17.0 Bilateral primary osteoarthritis of knee (principal); M25.561 Pain in right knee; M25.562 Pain in left knee; G89.29 Other chronic pain
CPT/HCPCS: 20610; J1040

== ENCOUNTER → 2023-02-16 15:38 | Outpatient (CLI) | payer BC, SELFPAY ==
--- NOTE | 2023-02-16 15:43 | XR_ITS ---
FINAL REPORT CLINICAL HISTORY: wheezing, cough COMPARISON: 06/13/2022 FINDINGS: Two views of the chest were obtained. The heart size and pulmonary vascularity are within normal limits. The mediastinum is normal. No acute pulmonary abnormality is identified. There is no pneumothorax. The bony thorax is intact. IMPRESSION: No active cardiopulmonary disease. Reviewed, Interpreted and Dictated by Gus Menard III, MD Transcribed by Sadaf Jerez Authenticated and [facility]
== END ==
PROVIDERS: PCP Student in an Organized Health Care Education/Training Program; Visit Provider Student in an Organized Health Care Education/Training Program
DX: R05.9 Cough, unspecified (principal); R06.2 Wheezing
CPT/HCPCS: 71046

== ENCOUNTER → 2023-02-22 15:14 | Outpatient (CLI) | payer BC, SELFPAY ==
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
== END ==
PROVIDERS: PCP Student in an Organized Health Care Education/Training Program; Visit Provider Nurse Practitioner
DX: J32.9 Chronic sinusitis, unspecified (principal); S09.93XA Unspecified injury of face, initial encounter
CPT/HCPCS: 70486

== ENCOUNTER → 2023-02-28 09:16 | Outpatient (POV) | payer BC, SELFPAY ==
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
[2023-02-28 10:26] VITALS: BP 117/76; PULSE 58; RESP 18; O2SAT 100; BMI 26.3
== END | disposition home or self-care (01) ==
PROVIDERS: Visit Provider Nurse Practitioner Family
DX: M51.16 Intervertebral disc disorders with radiculopathy, lumbar region (principal); M25.561 Pain in right knee; M25.562 Pain in left knee; M79.651 Pain in right thigh; M79.604 Pain in right leg
CPT/HCPCS: 99212; G0463

== ENCOUNTER → 2023-03-15 11:16 | Outpatient (POV) | payer BC, SELFPAY | PROVIDERS: Visit Provider Specialist/Technologist | DX: Z00.00 Encounter for general adult medical examination without abnormal findings (principal) ==

== ENCOUNTER 2023-03-19 13:26 | Emergency (ER) | payer BC, SELFPAY ==
[2023-03-19 13:27] VITALS: BP 133/89; PULSE 70; RESP 14; TEMP 36.9; O2SAT 95; BMI 26.6
[2023-03-19 14:30] VITALS: PULSE 78; O2SAT 97
--- NOTE | 2023-03-19 14:47 | PC.NURSE ---
Rounded on patient; family at BS. No needs at this time. Call rodriguez within reach
[2023-03-19 15:00] LABS: Basophils # 0.1 K/mm3 (0-0.2); Basophils % 0.6 % (0.1-2.0); Eosinophils # 0.3 K/mm3 (0.0-0.4); Eosinophils % 1.8 % (0.1-12.0); Hematocrit 50.6 % (42.0-52.0); Hemoglobin 16.6 g/dL (14.1-18.0); Lymphocytes # 4.1 K/mm3 (0.7-4.5); Lymphocytes % 25.7 % (10-50); Mean Corpuscular HGB Conc 32.8 g/dL (31.8-35.4); Mean Corpuscular Hemoglobin 30.2 pg (27.0-31.2); Mean Corpuscular Volume 92.3 fl (80-94); Mean Platelet Volume 8.5 fl (7.4-10.4); Monocytes # 0.8 K/mm3 (0.1-1.0); Monocytes % 4.9 % (1.7-9.3); Neutrophils # 10.6 K/mm3 (1.8-7.8); Neutrophils % 66.9 % (37.0-80.0); Platelet Count 325 K/mm3 (142-424); Red Blood Count 5.49 M/mm3 (4.60-6.20); Red Cell Distribution Width 13.5 % (11.5-17.5); White Blood Count 15.8 K/mm3 (4.8-10.8)
[2023-03-19 15:05] LABS: MANUAL DIFFERENTIAL MANUAL DIFFERENTIAL (MANUAL DIFF)
--- NOTE | 2023-03-19 15:08 | XR_ITS ---
FINAL REPORT TECHNIQUE: Single view chest CLINICAL HISTORY: epigastric pain, bleeding ulcer per patient. FINDINGS: A single view of the chest was obtained. The heart and mediastinum are within normal limits. There are chronic changes of the lung bases. The lungs are otherwise clear. There is no pneumothorax. Osseous structures are unremarkable. IMPRESSION: No acute cardiopulmonary process. Reviewed, Interpreted and Dictated by Alden Tate MD Transcribed by Brooklynn Shannon Authenticated and [facility]
--- NOTE | 2023-03-19 15:08 | CT_ITS ---
FINAL REPORT TECHNIQUE: Pre-and postcontrast images of the abdomen were performed by computed tomography. Extensive 3-D reconstruction images were performed. A CTA was performed. This study was performed with techniques to keep radiation doses as low as reasonably achievable (ALARA). Individualized dose reduction techniques using automated exposure control or adjustment of mA and/or kV according to the patient''s size were employed. CLINICAL HISTORY: upper GIB with coffee ground emesis FINDINGS: ABDOMEN AND PELVIS: The lung bases are clear. Precontrast images demonstrate no evidence of nephrolithiasis. There are benign-appearing cysts in the anterior left hepatic lobe. Otherwise, the liver, spleen, adrenal glands and pancreas are unremarkable. CTA: The abdominal aorta is proper caliber. There is 50% narrowing at the origin of the celiac axis. The SMA and MADHAV are patent. There is no significant stenosis or calcification. The renal arteries are patent bilaterally. There is no evidence of active GI bleed. The common, internal and external iliacs are patent. IMPRESSION: 50% narrowing at the origin of the celiac axis, otherwise no evidence of renal vascular hypertension or significant renal artery stenosis. No evidence of active GI bleed. Reviewed, Interpreted and Dictated by Alden Tate MD Transcribed by Brooklynn Shannon Authenticated and [facility]
[2023-03-19 15:09] LABS: Alanine Aminotransferase 32 U/L (12-78); Albumin Level 4.6 g/dl (3.5-5.0); Albumin/Globulin Ratio 1.4 (1.1-1.8); Alkaline Phosphatase 67 U/L (38-126); Anion Gap 16.8 mEq/L (5-15); Aspartate Amino Transferase 37 U/L (17-59); Bilirubin,Total 0.3 mg/dl (0.2-1.3); Blood Urea Nitrogen 22 mg/dl (9-20); Calcium 9.3 mg/dl (8.4-10.2); Carbon Dioxide 22 mmol/L (22.0-30.0); Chloride 105 mmol/L (98-107); Creatinine Clearance Estimated 71 mL/min (50-200); Estimated Glomerular Filt Rate 62 ml/min (>60); GFR (African American) 74 ML/MIN (>60); Globulin 3.3 g/dL (1.3-3.2); Glucose 110 mg/dl (74-100); Lipase 60 U/L (23-300); Potassium 3.8 mmoL/L (3.5-5.1); Sodium 140 mmol/L (136-145); Total Protein,Serum 7.9 g/dl (6.3-8.2)
--- NOTE | 2023-03-19 15:20 | HMH.EDGENADL ---
Discharge Plan Disposition Patient Disposition: Home, Self-Care Prescriptions Prescriptions: New esomeprazole magnesium 20 mg capsule,delayed release(DR/EC) 40 mg PO DAILY 56 Days Qty: 112 1RF No Action artificial tears(hypromellose) 0.5 % drops 1 drp OPHTHALMIC BID PRN (Reason: dry eye(s)) Qty: 15 0RF albuterol sulfate 90 mcg/actuation HFA aerosol inhaler 1 inh inhalation QID PRN (Reason: shortness of breath or wheezing) Qty: 6.7 0RF meclizine 12.5 mg tablet 12.5 mg PO BID PRN (Reason: dizziness) Qty: 60 2RF nicotine (polacrilex) 2 mg mini lozenge PO Q6H Patient Comments: DISSOLVE 1 lozenge in THE MOUTH NEEDED FOR smoking cessation ondansetron HCl 4 mg tablet 4 mg PO Q6H PRN (Reason: nausea and vomiting) Qty: 20 0RF cetirizine 10 mg tablet See Rx Instructions .ROUTE .COMPLEX Rx Instructions: TAKE ONE TABLET BY MOUTH EVERY DAY isosorbide mononitrate 30 mg tablet extended release 24 hr See Rx Instructions .ROUTE .COMPLEX Rx Instructions: TAKE ONE TABLET BY MOUTH EVERY DAY rosuvastatin 20 mg tablet See Rx Instructions .ROUTE .COMPLEX Rx Instructions: TAKE ONE TABLET BY MOUTH EVERY DAY Xarelto 2.5 mg tablet See Rx Instructions .ROUTE .COMPLEX Rx Instructions: TAKE ONE TABLET BY MOUTH TWICE DAILY levothyroxine 25 mcg tablet See Rx Instructions .ROUTE .COMPLEX Rx Instructions: TAKE ONE TABLET BY MOUTH EVERY DAY ropinirole 2 mg tablet 2 mg PO BID vit [id number] no.15 [id number] wvj-ssl-[id number]-mg Capsule 1 cap PO DAILY aspirin 81 mg tablet,delayed release (DR/EC) See Rx Instructions .ROUTE .COMPLEX Rx Instructions: TAKE ONE TABLET BY MOUTH EVERY DAY FOR heart health cyclobenzaprine 10 mg tablet 10 mg PO TID Qty: 90 1RF metoclopramide HCl 10 MG tablet 10 mg PO ACHS sucralfate [Carafate] 1 gram tablet 1 g PO BID famotidine 40 mg tablet 40 mg PO HS Referrals Follow up/Referrals: Fred Philip APRN [Primary Care Provider] - See instructions Activity Restrictions/Add. Instructions Additional Instructions/Restrictions: Call physician who is performing upper GI scope and discuss this visit with them. No active bleed was identified, so you are okay going home. Call your family doctor to establish care for this visit to the emergency department and schedule follow-up within 48 hours to ensure improvement. If you have any worsening of your condition or any other concerning signs or symptoms, return to the emergency department or your primary care doctor for further evaluation. Take proton pump inhibitor daily, 40 mg, until that time. Avoid NSAIDs such as ibuprofen, naproxen, etc. Clinical Impressions Clinical Impression: Hematemesis, Peptic ulcer disease Instructions Patient Instructions: DI for Diarrhea and Traveler's Diarrhea -- Adult, DI for Diarrhea and Traveler's Diarrhea -- Child, DI for Nausea -- Adult, DI for Nausea -- Child Discharge ED Provider: Francisco Russ General Adult HPI General Chief complaint: Nausea/Vomiting/Diarrhea Stated complaint: vomiting up blood Time Seen by Provider: 03/19/23 14:54 Mode of Arrival: Family Vehicle Source of Information: Patient Limitations: No Limitations Description of Symptoms (Recalled from ER Triage Doc. by RN): Pt c/o nausea, bile emesis, and red/brown emesis. States he has a long hx of GERD and providers recently switched his GERD medications. Denies any abd pain. He reports he has only been drank coffee this morning. He is on xarelto d/t cardiac stents. History of Present Illness HPI narrative: 62-year-old male with history of COPD, PAD status post stenting currently on Xarelto, current smoker, hypertension, hyperlipidemia GERD, presenting with hematemesis. Patient states that his epigastric burning has been worsening for the past 2 days. Vomited 1 day prior to arrival on 03/18, was yellow. State
--- NOTE | 2023-03-19 15:38 | ECG_ITS ---
APPROVED REPORT Exam: Resting ECG HR:58 bpm ECG Measurements Heart Rate 58 AXES MD 168 P 26 QRSd 97 QRS 53 QT 381 T 60 QTc 377 Conclusion SINUS BRADYCARDIA BORDERLINE ECG UNCONFIRMED REPORT Electronically signed by : Colt Cadet MD 03/20/2023 19:57:57
[2023-03-19 16:13] LABS: Troponin I < 0.01 ng/ml (0.00-0.034)
[2023-03-19 16:41] LABS: Eosinophils % 1 % (0-3); Lymphocytes % 24 % (10-50); Monocytes % 5 % (2-9); Neutrophils % 68 % (42-76); Platelet Estimate Normal; RBC Morphology Normal; Total Cells Counted 100
[2023-03-19 17:41] LABS: Troponin I < 0.01 ng/ml (0.00-0.034)
[2023-03-19 17:52] VITALS: BP 133/89; PULSE 78; RESP 16; TEMP 36.8; O2SAT 98
== END 2023-03-19 17:54 | disposition home or self-care (01) ==
PROVIDERS: Emergency Medicine; Emergency Provider Emergency Medicine; PCP Nurse Practitioner Family
DX: K27.0 Acute peptic ulcer, site unspecified, with hemorrhage (principal); J44.9 Chronic obstructive pulmonary disease, unspecified; I73.9 Peripheral vascular disease, unspecified; I10 Essential (primary) hypertension; E78.5 Hyperlipidemia, unspecified; K21.9 Gastro-esophageal reflux disease without esophagitis; E03.9 Hypothyroidism, unspecified; I20.9 Angina pectoris, unspecified; F17.210 Nicotine dependence, cigarettes, uncomplicated; Z79.01 Long term (current) use of anticoagulants
CPT/HCPCS: 36415; 71045; 74174; 80053; 83690; 84484; 85007; 85025; 93005; 96361; 96374; 96375; 99285; J2405; Q9967

== ENCOUNTER 2023-03-20 08:37 | Day surgery (SDC) | payer BC, SELFPAY ==
[2023-03-20 08:48] VITALS: BP 143/83; PULSE 55; RESP 18; TEMP 36.6; O2SAT 99; BMI 26.6
[2023-03-20 08:58] VITALS: BP 140/85; PULSE 57; RESP 18; O2SAT 99
--- NOTE | 2023-03-20 08:58 | EXP.PAIN.PRO ---
Procedure Date: 03/20/23 Time: 08:40 Anesthesiologist:: Ronnie Gerber CRNA Complications:: None Pre-procedure Diagnosis:: Osteoarthritis left knee. Chronic left knee pain. Post-procedure Diagnosis:: Same. Indications for Procedure:: Patient is a pleasant 62-year-old male that comes our clinic today for left genicular nerve block. Patient has responded very well to this injection in the past. He complains of left knee pain that is constant, dull, aching. Patient rates pain in the left knee 9/10. Procedure Details:: Informed consent was obtained and the risk and benefits of the procedure was explained to the patient. The patient was taken to the procedure room. The left knee was prepped using ChloraPrep. I placed 22-gauge needles into the area of the left superior medial genicular nerve, left superior lateral genicular nerve and left inferior medial genicular nerve. Needle placement was confirmed in AP and lateral views with dye. We then injected bupivacaine 0.25% 3 mL's and Depo-Medrol 25 mg into each area of the left superior medial genicular nerve, left superior lateral genicular nerve and left inferior medial genicular nerve. Patient tolerated the procedure well with no complications. Plan and Disposition:: Patient was discharged without incident.
[2023-03-20 09:00] VITALS: BP 139/85; PULSE 60; RESP 18; O2SAT 97
[2023-03-20 09:05] VITALS: BP 139/85; PULSE 60; RESP 18; O2SAT 97
== END 2023-03-20 08:58 | disposition home or self-care (01) ==
PROVIDERS: PCP Student in an Organized Health Care Education/Training Program; Visit Provider Nurse Anesthetist, Certified Registered
DX: M17.12 Unilateral primary osteoarthritis, left knee (principal); M25.562 Pain in left knee; G89.29 Other chronic pain
CPT/HCPCS: 64454; J1040

== ENCOUNTER → 2023-04-09 11:00 | Outpatient (POV) | payer BC, SELFPAY ==
[2023-04-09 11:30] VITALS: BP 134/84; PULSE 62; RESP 20; BMI 26.6
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
== END ==
PROVIDERS: PCP Emergency Medicine; Visit Provider Nurse Anesthetist, Certified Registered
DX: M17.0 Bilateral primary osteoarthritis of knee (principal); M54.16 Radiculopathy, lumbar region
CPT/HCPCS: 99212; G0463

== ENCOUNTER → 2023-05-01 14:41 | Outpatient (CLI) | payer BC, SELFPAY ==
[2023-05-01 12:33] LABS: Basophils # 0.1 K/mm3 (0-0.2); Basophils % 0.8 % (0.1-2.0); Eosinophils # 0.5 K/mm3 (0.0-0.4); Eosinophils % 3.4 % (0.1-12.0); Hemoglobin 16.7 g/dL (14.1-18.0); Lymphocytes # 5.7 K/mm3 (0.7-4.5); Lymphocytes % 40.7 % (10-50); Mean Corpuscular HGB Conc 34.1 g/dL (31.8-35.4); Mean Corpuscular Hemoglobin 31.9 pg (27.0-31.2); Mean Corpuscular Volume 93.5 fl (80-94); Mean Platelet Volume 8.8 fl (7.4-10.4); Monocytes # 0.9 K/mm3 (0.1-1.0); Monocytes % 6.2 % (1.7-9.3); Neutrophils # 6.9 K/mm3 (1.8-7.8); Neutrophils % 48.8 % (37.0-80.0); Platelet Count 319 K/mm3 (142-424); Red Blood Count 5.24 M/mm3 (4.60-6.20); Red Cell Distribution Width 13.5 % (11.5-17.5); White Blood Count 14.1 K/mm3 (4.8-10.8)
[2023-05-01 15:51] LABS: Alanine Aminotransferase 26 U/L (12-78); Albumin Level 4.7 g/dl (3.5-5.0); Albumin/Globulin Ratio 1.5 (1.1-1.8); Alkaline Phosphatase 70 U/L (38-126); Anion Gap 14.9 mEq/L (5-15); Aspartate Amino Transferase 32 U/L (17-59); Bilirubin,Total 0.3 mg/dl (0.2-1.3); Blood Urea Nitrogen 11 mg/dl (9-20); Calcium 9.6 mg/dl (8.4-10.2); Carbon Dioxide 28 mmol/L (22.0-30.0); Chloride 102 mmol/L (98-107); Estimated Glomerular Filt Rate 86 ml/min (>60); GFR (African American) 104 ML/MIN (>60); Globulin 3.2 g/dL (1.3-3.2); Glucose 105 mg/dl (74-100); Potassium 4.9 mmoL/L (3.5-5.1); Sodium 140 mmol/L (136-145); Total Protein,Serum 7.9 g/dl (6.3-8.2)
[2023-05-01 16:10] LABS: 25-OH Vitamin D, Total 43.8 ng/mL (30-100)
[2023-05-01 16:22] LABS: Prostate Specific Ag Screen 0.9 ng/ml (0.0-4.0)
[2023-05-01 16:23] LABS: Thyroid Stimulating Hormone 3.29 uIU/mL (0.465-4.68)
[2023-05-01 21:20] LABS: Amphetamine/Metha Screen,Urine Negative ng/ml (<1000)
[2023-05-01 21:21] LABS: Barbiturates Screen,Urine Negative ng/ml (<200)
[2023-05-01 21:22] LABS: Benzodiazepines Screen,Urine Negative ng/ml (<200); Cannabinoid Screen,Urine Negative ng/ml (<50)
[2023-05-01 21:23] LABS: Cocaine Screen,Urine Negative ng/ml (<300); Creatinine,Urine Random 47 mg/dL (Not Estab.); Microalbumin < 6.000 mg/L (0-16.7)
[2023-05-01 21:24] LABS: Methadone Screen,Urine Negative ng/ml (<300); Opiate Screen,Urine Negative ng/ml (<300)
[2023-05-01 21:25] LABS: Phencyclidine Screen,Urine Negative ng/ml (<25)
[2023-05-02 13:04] LABS: Hep A Ab, Total Positive (Negative); Hep B Core Ab, Total Negative (Negative); Hep B Surface Ab, Qual Non Reactive (.)
[2023-05-03 06:56] LABS: HIV Screen 4th Generation wRfx Non Reactive (Non Reactive)
[2023-05-06 12:32] LABS: Hepatitis B Surface Antigen Negative; Hepatitis C Antibody Non Reactive
[2023-05-06 12:33] LABS: Alpha 2-Macroglobulins, Qn 169; Fibrosis Score 0.07; Fibrosis Stage F0- NO FIBROSIS; Necroinflammat Activity Grade A0- NO ACTIVITY; Necroinflammat Activity Score 0.06
[2023-05-06 12:34] LABS: ALT (SGPT) P5P 21; Apolipoprotein A-1 153; Bilirubin, Total 0.2; GGT 23; Haptoglobin 262
== END ==
PROVIDERS: PCP Internal Medicine; Visit Provider Internal Medicine
DX: I10 Essential (primary) hypertension (principal); M17.0 Bilateral primary osteoarthritis of knee; F10.20 Alcohol dependence, uncomplicated; E55.9 Vitamin D deficiency, unspecified; M54.50 Low back pain, unspecified; G89.29 Other chronic pain; Z79.899 Other long term (current) drug therapy; Z11.4 Encounter for screening for human immunodeficiency virus [HIV]; Z72.0 Tobacco use; Z12.5 Encounter for screening for malignant neoplasm of prostate
CPT/HCPCS: 80053; 80305; 81596; 82043; 82306; 82570; 84443; 85025; 86703; 86704; 86706; 86708; 87340; 87380; 87522; G0103; G0432

== ENCOUNTER 2023-05-11 12:34 | Day surgery (SDC) | payer BC, SELFPAY ==
[2023-05-10 08:14] VITALS: BMI 26.6
[2023-05-11] VITALS (7 sets, daily range): BP systolic 112–151; BP diastolic 63–88; PULSE 54–97; RESP 16–18; TEMP 36.1–36.2; O2SAT 95–99
--- NOTE | 2023-05-11 13:19 | HMH.SCOPE ---
Procedure: Date: 05/11/23 Patient Date of :: 1960 Procedure Performed:: Esophagogastroduodenoscopy with biopsies Indications:: Patient is a 62-year-old male with history of COPD, chronic arterial occlusive disease with stenting on Xarelto, current smoker, history of hypertension, hyperlipidemia, GERD. He presented to the emergency department on 03/19/2023 with epigastric burning pain and vomiting. His vomitus had the appearance of coffee grounds with some streaking red . Patient smokes 2 packs of cigarettes daily. He underwent thorough work-up in the emergency department and was managed as an outpatient. He is on Nexium. 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 He states that attempts have been made to arrange for him to have an upper endoscopy for quite some time. According to the record there is history of alcoholism. Review of the record reveals that he underwent upper endoscopy with biopsies and TTS balloon dilatation with Dr. 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 There is also linear reactive gastropathy. 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 Recommendations for additional treatment options were discussed including C13 sucrose breath testing. Biopsies revealed peptic duodenitis and reactive gastropathy. Patient was apparently scheduled for upper endoscopy with Dr. Jaret Reich on 03/14/2023. After patient was seen in office plan was made to proceed with upper endoscopy to evaluate for any acute issue. Because felt that ultimately the patient may require ongoing gastroenterology care and possible vascular surgery evaluation for celiac stenosis. Performing Provider:: Gus Garcia MD Referring Provider:: Kyle Charles DO Sedation:: MAC sedation Procedure:: Patient history was obtained and appropriate physical examination was performed. Patient's medications and allergies were reviewed. Informed consent was obtained after explaining the benefits, alternatives, and risks of the procedure including, but not limited to, bleeding, perforation, missed lesions, and adverse reaction to anesthesia medications. Patient was transported to endoscopy procedure room. Patient was connected to monitoring devices. Throughout the procedure the patient's blood pressure, pulse, and oxygen saturations were monitored continuously. Patient identification and planned procedure were verified by the staff. Patient was positioned in lateral decubitus position. Olympus endoscope was inserted via the oropharynx. Esophagus was cannulated. Overall esophagus appeared unremarkable. Gastroesophageal junction was encountered at approximately 38 cm. There were findings potentially of mild focal Roger's esophagus. Stomach was cannulated and insufflated. Retroflexion revealed small sliding hiatal hernia. There was some diffuse linear nonerosive mild gastropathy. Biopsies were obtained within the gastric lumen. Pylorus was traversed. Duodenum appeared normal. Endoscope was withdrawn into the distal esophagus and biopsy was obtained at the gastroesophageal junction to assess for Roger's esophagus. Stomach was desufflated and the endoscope was withdrawn. Findings:: Gastroesophageal junction at 38 cm Possible focal Roger's esophagus at GE junction Mild nonerosive linear gastropathy Recommendations:: Medical management Likely benefit from gastroenterology assessment and treatment Complications:: None immediately apparent Estimated blood obtained (mL): 3 Colonoscopy Component Colonoscopy Component Was a colonoscopy performed during today's procedure?: No
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
--- NOTE | 2023-05-11 14:05 | EXP.ANES.I ---
[facility] Anesthesia Record Part I Anesthesia Record I Intake, IV Amount: 250 Hydration: Adequate Estimated blood loss (mL): 1 Urine output (mL): 0 Blood Products used (#): none Blood Pressure: 112/71 SaO2: 96 Pulse Rate: 56 Airway Patency: Patent Respiratory Rate: 16 Temperature: 97.1 F Patient is:: Awake, Drowsy and Stable Stable to PACU at:: 14:00
== END 2023-05-11 14:30 | disposition home or self-care (01) ==
PROVIDERS: PCP Internal Medicine; Visit Provider Surgery
PROC: 0DJ08ZZ Inspection of Upper Intestinal Tract, Via Natural or Artificial Opening Endoscopic (ICD-10-PCS; CPT 43235; principal; 2023-05-11 13:30)
DX: K92.0 Hematemesis (principal); K21.9 Gastro-esophageal reflux disease without esophagitis; I77.4 Celiac artery compression syndrome; K44.9 Diaphragmatic hernia without obstruction or gangrene; K31.9 Disease of stomach and duodenum, unspecified
CPT/HCPCS: 43239

== ENCOUNTER → 2023-05-22 11:23 | Outpatient (CLI) | payer BC, SELFPAY ==
[2023-05-23 07:50] LABS: Hep B Core Ab, Total Negative (Negative); Hep B Surface Ab, Qual Non Reactive (.)
== END ==
PROVIDERS: PCP Internal Medicine; Visit Provider Surgery
DX: R10.9 Unspecified abdominal pain (principal); R19.7 Diarrhea, unspecified; E78.5 Hyperlipidemia, unspecified
CPT/HCPCS: 36415; 86704; 86706

== ENCOUNTER → 2023-05-25 13:57 | Outpatient (CLI) | payer BC, SELFPAY ==
[2023-05-25 14:00] LABS: Adenovirus F 40/41, stool Not Detected (NotDetected); Astrovirus Not Detected (NotDetected); Campylobacter Not Detected (NotDetected); Clostridium Difficile A/B, PCR Not Detected (NotDetected); Cryptosporidium Not Detected (NotDetected); Cyclospora Cayetanesis Not Detected (NotDetected); Entamoeba histolytica Not Detected (NotDetected); Enteroaggregative E coli Not Detected (NotDetected); Enteropathogenic E coli Not Detected (NotDetected); Enterotoxigenic E coli Not Detected (NotDetected); Giardia lamblia Not Detected (NotDetected); Norovirus Not Detected (NotDetected); Plesimonas Shigalloides, PCR Not Detected (NotDetected); Rotavirus A Not Detected (NotDetected); Salmonella, PCR Not Detected (NotDetected); Shiga-like toxin E coli Not Detected (NotDetected); Shigella Enterovasive E coli Not Detected (NotDetected); Vibrio Cholerae Not Detected (NotDetected); Vibrio, PCR Not Detected (NotDetected); Yersinia Entercolitica, PCR Not Detected (NotDetected)
[2023-05-29 07:25] LABS: Sapovirus Not Detected (NotDetected)
== END ==
PROVIDERS: PCP Internal Medicine; Visit Provider Surgery
DX: R19.7 Diarrhea, unspecified (principal)
CPT/HCPCS: 87506

== ENCOUNTER 2023-05-25 16:44 | Emergency (ER) | payer BC, SELFPAY ==
[2023-05-25 16:47] VITALS: BP 143/85; PULSE 59; RESP 15; TEMP 36.8; O2SAT 98; BMI 26.6
--- NOTE | 2023-05-25 16:49 | PC.NURSE ---
ER full went to lobby to assess pt, bleeding controlled and patient has it wrapped he states drill bit went thru and tore thumb nail off
--- NOTE | 2023-05-25 17:30 | PC.NURSE ---
Pt wound cleaned with hibiclens and sterile water. No needs voiced. Call light within reach.
--- NOTE | 2023-05-25 18:41 | HMH.EDGENADL ---
Discharge Plan Disposition Patient Disposition: Home, Self-Care Prescriptions Prescriptions: New cephalexin 500 mg capsule 500 mg PO QID 5 Days Qty: 20 0RF No Action artificial tears(hypromellose) 0.5 % drops 1 drp OPHTHALMIC BID PRN (Reason: dry eye(s)) Qty: 15 0RF albuterol sulfate 90 mcg/actuation HFA aerosol inhaler 1 inh inhalation QID PRN (Reason: shortness of breath or wheezing) Qty: 6.7 0RF sucralfate [Carafate] 1 gram tablet 1 g PO Q6H Qty: 120 0RF famotidine 40 mg tablet 40 mg PO HS Qty: 90 0RF pantoprazole [Protonix] 40 mg tablet,delayed release (DR/EC) 40 mg PO BID Qty: 180 0RF meclizine 12.5 mg tablet 12.5 mg PO BID PRN (Reason: dizziness) Qty: 60 2RF hydrocodone-acetaminophen 5-325 mg tablet 1 tab PO BID PRN (Reason: pain) Qty: 60 0RF cetirizine 10 mg tablet See Rx Instructions .ROUTE .COMPLEX Rx Instructions: TAKE ONE TABLET BY MOUTH EVERY DAY isosorbide mononitrate 30 mg tablet extended release 24 hr See Rx Instructions .ROUTE .COMPLEX Rx Instructions: TAKE ONE TABLET BY MOUTH EVERY DAY rosuvastatin 20 mg tablet See Rx Instructions .ROUTE .COMPLEX Rx Instructions: TAKE ONE TABLET BY MOUTH EVERY DAY Xarelto 2.5 mg tablet See Rx Instructions .ROUTE .COMPLEX Rx Instructions: TAKE ONE TABLET BY MOUTH TWICE DAILY levothyroxine 25 mcg tablet See Rx Instructions .ROUTE .COMPLEX Rx Instructions: TAKE ONE TABLET BY MOUTH EVERY DAY ropinirole 2 mg tablet 2 mg PO BID vit [id number] no.15 [id number] ajb-lff-gs-mg Capsule 1 cap PO DAILY aspirin 81 mg tablet,delayed release (DR/EC) See Rx Instructions .ROUTE .COMPLEX Rx Instructions: TAKE ONE TABLET BY MOUTH EVERY DAY FOR heart health cyclobenzaprine 10 mg tablet 10 mg PO TID Qty: 90 1RF metoclopramide HCl 10 MG tablet 10 mg PO ACHS esomeprazole magnesium 20 mg capsule,delayed release(DR/EC) 40 mg PO DAILY Referrals Follow up/Referrals: Kyle Charles DO [Primary Care Provider] - See instructions Activity Restrictions/Add. Instructions Additional Instructions/Restrictions: You sustained a nailbed injury today from a drill bit. Prophylactic antibiotics have been prescribed. Half of your base of your nail was intact and likely will maintain appropriate nail growth. We chose not to remove your nail and repair the nailbed as the majority of your nailbed was intact. No indication for tetanus immunization as you are up-to-date. Please return with any worsening redness or pus coming from the wound. Clinical Impressions Clinical Impression: Nail bed injury Instructions Patient Instructions: DI for Laceration Repair Discharge ED Provider: Shruthi Kurtz General Adult HPI General Chief complaint: Wound/Laceration Stated complaint: AO 05/25/23 15:36 injury right thumb Time Seen by Provider: 05/25/23 18:31 Mode of Arrival: Ambulatory Source of Information: Patient Limitations: No Limitations Description of Symptoms (Recalled from ER Triage Doc. by RN): pt was using a drill bite and it slipped and went thru his nail beed on right thumb. pt unsure of tetanus immunization status. happened today History of Present Illness HPI narrative: Patient is a 62-year-old male presents today with a right thumb nailbed injury. States that he was working with a drill and it injured the base of his right thumb. He is on blood thinners and came to the emergency department for that reason. Was a superficial injury involving the ulnar aspect of the right thumb in the proximal 25% of that the radial aspect was completely unaffected. He is up-to-date on his tetanus did clean this up prior to arrival. Related Data Home Medications Medication Instructions Recorded Confirmed metoclopramide HCl 10 mg tablet 10 mg PO ACHS GERD 12/24/20 05/22/23 cetirizine 10 mg tablet See Rx Instructions .Route 06/13/22
[2023-05-25 18:55] VITALS: BP 143/85; PULSE 59; RESP 15; TEMP 36.8; O2SAT 98
== END 2023-05-25 18:56 | disposition home or self-care (01) ==
PROVIDERS: Emergency Provider Student in an Organized Health Care Education/Training Program; PCP Internal Medicine
DX: S61.131A Puncture wound without foreign body of right thumb with damage to nail, initial encounter (principal); F17.210 Nicotine dependence, cigarettes, uncomplicated; I10 Essential (primary) hypertension; E03.9 Hypothyroidism, unspecified; I73.9 Peripheral vascular disease, unspecified; E78.5 Hyperlipidemia, unspecified; K21.9 Gastro-esophageal reflux disease without esophagitis; G62.9 Polyneuropathy, unspecified; Z79.01 Long term (current) use of anticoagulants; W29.8XXA Contact with other powered hand tools and household machinery, initial encounter
CPT/HCPCS: 99283

== ENCOUNTER 2023-07-24 20:40 | Outpatient (CLI) | payer BC, SELFPAY ==
[2023-07-24 20:03] LABS: Amphetamine/Metha Screen,Urine Negative ng/ml (<1000)
[2023-07-24 20:05] LABS: Benzodiazepines Screen,Urine Negative ng/ml (<200); Cannabinoid Screen,Urine Negative ng/ml (<50)
[2023-07-24 20:06] LABS: Cocaine Screen,Urine Negative ng/ml (<300); Methadone Screen,Urine Negative ng/ml (<300)
[2023-07-24 20:07] LABS: Opiate Screen,Urine Negative ng/ml (<300)
[2023-07-24 20:08] LABS: Phencyclidine Screen,Urine Negative ng/ml (<25)
[2023-07-24 20:28] LABS: Barbiturates Screen,Urine Negative ng/ml (<200)
[2023-07-29 13:03] LABS: Opiates Negative (Cutoff=100); Oxycodone (GC/MS) 1263 ng/mL (Cutoff=100); Oxymorphone (GC/MS) 1593 ng/mL (Cutoff=100)
== END 2023-07-24 23:59 ==
LOC: LAB.DROPOF 20:40
PROVIDERS: PCP Internal Medicine; Visit Provider Internal Medicine
DX: M54.9 Dorsalgia, unspecified (principal); M54.50 Low back pain, unspecified; Z79.899 Other long term (current) drug therapy
CPT/HCPCS: 80307; 80361; 80365; G0480

== ENCOUNTER 2023-08-21 12:53 | Outpatient (CLI) | payer BC, SELFPAY ==
[2023-08-21 13:47] LABS: Cholesterol 227 mg/dl (140-200)
[2023-08-21 13:48] LABS: Chol/HDL Ratio 9.9 (1-3.5); HDL Cholesterol 23 mg/dl (40-60)
[2023-08-21 13:56] LABS: Triglycerides 623 mg/dl (30-150)
[2023-08-21 13:58] LABS: Direct LDL Cholesterol 112.17 mg/dL (100-129)
== END 2023-08-21 23:59 ==
LOC: LAB.DROPOF 12:53
PROVIDERS: PCP Internal Medicine; Visit Provider Internal Medicine
DX: E78.5 Hyperlipidemia, unspecified (principal); B15.9 Hepatitis A without hepatic coma
CPT/HCPCS: 80061

== ENCOUNTER 2023-10-16 16:53 | Outpatient (CLI) | payer BC, SELFPAY ==
[2023-10-16 19:36] LABS: Chol/HDL Ratio 3.1 (1-3.5); Cholesterol 122 mg/dl (140-200); HDL Cholesterol 40 mg/dl (40-60); Triglycerides 131 mg/dl (30-150); VLDL Cholesterol 26 mg/dL (0-40)
[2023-10-16 19:48] LABS: Direct LDL Cholesterol 62.02 mg/dL (100-129)
== END 2023-10-16 23:59 ==
LOC: LAB.DROPOF 10-17 16:53
PROVIDERS: PCP Internal Medicine; Visit Provider Internal Medicine
DX: I73.9 Peripheral vascular disease, unspecified (principal); Z79.899 Other long term (current) drug therapy
CPT/HCPCS: 80061

== ENCOUNTER 2024-01-09 12:00 | Outpatient (CLI) | payer BC, SELFPAY ==
[2024-01-09 18:58] LABS: Chol/HDL Ratio 3.2 (1-3.5); Cholesterol 142 mg/dl (140-200); HDL Cholesterol 44 mg/dl (40-60); Triglycerides 122 mg/dl (30-150); VLDL Cholesterol 24 mg/dL (0-40)
[2024-01-09 19:27] LABS: Thyroid Stimulating Hormone 4.96 uIU/mL (0.465-4.68)
[2024-01-09 19:58] LABS: Hemoglobin A1C 5.8 % (4.0-6.0)
== END 2024-01-09 23:59 | disposition home or self-care (01) ==
LOC: LAB.DROPOF 01-10 08:58
PROVIDERS: PCP Internal Medicine; Visit Provider Internal Medicine
DX: E16.2 Hypoglycemia, unspecified (principal); E78.5 Hyperlipidemia, unspecified; E03.8 Other specified hypothyroidism
CPT/HCPCS: 80061; 83036; 84443

== ENCOUNTER 2024-01-15 13:55 | Outpatient (CLI) | payer BC, SELFPAY ==
--- NOTE | 2024-01-15 13:59 | XR_ITS ---
FINAL REPORT CLINICAL HISTORY: pain in left shoulder FINDINGS: 3 views of the left shoulder were obtained. There is no prior exam for comparison. There is no fracture or dislocation. The joint space is preserved. Soft tissues are normal. IMPRESSION: No acute osseous abnormality of the left shoulder. Reviewed, Interpreted and Dictated by Rocio Díaz MD Transcribed by Sadaf Jerez Authenticated and . [facility]
== END 2024-01-15 23:59 | disposition home or self-care (01) ==
LOC: RAD 13:56
PROVIDERS: PCP Internal Medicine; Visit Provider Internal Medicine
DX: M25.512 Pain in left shoulder (principal)
CPT/HCPCS: 73030

== ENCOUNTER 2024-04-08 12:35 | Outpatient (CLI) | payer BC, SELFPAY ==
[2024-04-08 13:38] LABS: Blood Urea Nitrogen 11 mg/dl (9-20); Estimated Glomerular Filt Rate 86 ml/min (>60); GFR (African American) 103 ML/MIN (>60)
== END 2024-04-08 23:59 | disposition home or self-care (01) ==
LOC: LAB 12:37
PROVIDERS: PCP Internal Medicine; Visit Provider Internal Medicine
DX: I10 Essential (primary) hypertension (principal); Z72.0 Tobacco use
CPT/HCPCS: 36415; 82565; 84520

== ENCOUNTER 2024-04-09 13:18 | Outpatient (CLI) | payer BC, SELFPAY ==
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
[2024-04-09] MEDS: SODIUM CHLORIDE 0.9% 10ML SYR (RAD ONLY) 10 ML IV (13:40)
[2024-04-09] MEDS: IOPAMIDOL-300 (61%) 100ML VIAL 100 ML IV (13:40)
== END 2024-04-09 23:59 | disposition home or self-care (01) ==
LOC: RAD 13:19
PROVIDERS: PCP Internal Medicine; Visit Provider Internal Medicine
DX: R41.3 Other amnesia (principal); R42 Dizziness and giddiness
CPT/HCPCS: 70470; Q9967

== ENCOUNTER 2024-11-10 10:39 | Outpatient (CLI) | payer OTHER, SELFPAY ==
[2024-11-10 18:53] LABS: Basophils # 0.1 K/mm3 (0-0.2); Basophils % 0.9 % (0.1-2.0); Eosinophils # 0.6 Kmm3 (0.0-0.4); Eosinophils % 5.2 % (0.1-12.0); Hematocrit 44.2 % (42.0-52.0); Hemoglobin 14.5 g/dL (14.1-18.0); Immature Granulocytes # 0.02 10^3uL; Immature Granulocytes % 0.2 %; Lymphocytes # 5.9 K/mm3 (0.7-4.5); Mean Corpuscular HGB Conc 32.8 g/dL (31.8-35.4); Mean Corpuscular Hemoglobin 30.1 pg (27.0-31.2); Mean Corpuscular Volume 91.7 fl (80-94); Monocytes # 0.8 K/mm3 (0.1-1.0); Neutrophils # 4.1 K/mm3 (1.8-7.8); Neutrophils % 35.7 % (37.0-80.0); Nucleated Red Blood Cells # 0 10^3/uL; Nucleated Red Blood Cells % 0 %; Platelet Count 330 K/mm3 (142-424); Red Blood Count 4.82 M/mm3 (4.60-6.20); Red Cell Distribution Width 13.6 % (11.5-17.5); Red Cell Distribution Width-SD 46.2 fL; White Blood Count 11.5 K/mm3 (4.8-10.8)
[2024-11-10 18:57] LABS: MANUAL DIFFERENTIAL MANUAL DIFFERENTIAL (MANUAL DIFF)
[2024-11-10 20:02] LABS: Albumin Level 4.1 g/dl (3.5-5.0); Chloride 112 mmol/L (98-107)
[2024-11-10 20:03] LABS: Potassium 4.7 mmoL/L (3.5-5.1); Sodium 141 mmol/L (136-145)
[2024-11-10 20:05] LABS: Alanine Aminotransferase 15 U/L (12-78); Albumin/Globulin Ratio 1.6 (1.1-1.8); Alkaline Phosphatase 51 U/L (38-126); Anion Gap 7.7 mEq/L (5-15); Aspartate Amino Transferase 24 U/L (17-59); Bilirubin,Total 0.2 mg/dl (0.2-1.3); Blood Urea Nitrogen 13 mg/dl (9-20); Carbon Dioxide 26 mmol/L (22.0-30.0); Estimated Glomerular Filt Rate 85 ml/min (>60); GFR (African American) 103 ML/MIN (>60); Globulin 2.6 g/dL (1.3-3.2); Total Protein,Serum 6.7 g/dl (6.3-8.2)
[2024-11-10 20:06] LABS: Calcium 9.7 mg/dl (8.4-10.2); Chol/HDL Ratio 3.5 (1-3.5); Cholesterol 138 mg/dl (140-200); Glucose 133 mg/dl (74-100); HDL Cholesterol 39 mg/dl (40-60); Triglycerides 148 mg/dl (30-150); VLDL Cholesterol 30 mg/dL (0-40)
[2024-11-10 20:17] LABS: Direct LDL Cholesterol 73.07 mg/dL (100-129)
[2024-11-10 20:36] LABS: Thyroid Stimulating Hormone 3.47 uIU/mL (0.465-4.68)
[2024-11-10 23:38] LABS: Atypical Lymphocytes % 3; Eosinophils % 2 % (0-3); Lymphocytes % 65 % (10-50); Monocytes % 7 % (2-9); Neutrophils % 23 % (42-76); Platelet Estimate Normal; Total Cells Counted 100
[2024-11-12 18:13] LABS: Peripheral Smear Review Scanned Result
== END 2024-11-10 23:59 | disposition home or self-care (01) ==
LOC: LAB.DROPOF 11-11 12:57
PROVIDERS: PCP Family Medicine; Visit Provider Family Medicine
DX: E78.5 Hyperlipidemia, unspecified (principal); I10 Essential (primary) hypertension; E03.8 Other specified hypothyroidism; F17.210 Nicotine dependence, cigarettes, uncomplicated
CPT/HCPCS: 80053; 80061; 84443; 85007; 85025; 85027

== ENCOUNTER 2024-11-17 13:42 | Outpatient (CLI) | payer OTHER, SELFPAY ==
--- NOTE | 2024-11-17 13:45 | XR_ITS ---
FINAL REPORT CLINICAL HISTORY: Right knee pain COMPARISON: 08/02/2022 FINDINGS: RIGHT KNEE Three views demonstrate no acute fracture or dislocation. The joint spaces appear normal. No acute soft tissue abnormality is seen. IMPRESSION: No acute bony abnormality. Reviewed, Interpreted and Dictated by Alden Tate MD Transcribed by Tammie Garland Authenticated and [facility]
--- NOTE | 2024-11-17 13:45 | XR_ITS ---
FINAL REPORT CLINICAL HISTORY: Left knee pain COMPARISON: 04/10/2022 FINDINGS: LEFT KNEE Three views demonstrate no acute fracture or dislocation. The joint spaces appear normal. No acute soft tissue abnormality is seen. IMPRESSION: No acute bony abnormality. Reviewed, Interpreted and Dictated by Alden Tate MD Transcribed by Tammie Garland Authenticated and . [facility]
== END 2024-11-17 23:59 | disposition home or self-care (01) ==
LOC: RAD 13:43
PROVIDERS: PCP Family Medicine; Visit Provider Physician Assistant
DX: M25.562 Pain in left knee (principal); M25.561 Pain in right knee
CPT/HCPCS: 73562

== ENCOUNTER 2024-11-28 08:42 | Outpatient (CLI) | payer OTHER, SELFPAY ==
--- NOTE | 2024-11-28 08:42 | XR_ITS ---
FINAL REPORT TECHNIQUE: Lumbar spine 3 views CLINICAL HISTORY: pain COMPARISON: None FINDINGS: LUMBAR SPINE: AP and lateral views of the lumbar spine were obtained. There is no prior exam for comparison. There is no acute fracture or malalignment. Vertebral body height is preserved. Mild anterior osteophytes are noted at the L1-2 and L2-3 levels. Disc space height is preserved. No acute paraspinal abnormality. IMPRESSION: Mild degenerative change in the upper lumbar spine, without acute bony abnormality. Reviewed, Interpreted and Dictated by Alden Tate MD Transcribed by Alpa Laird Authenticated and [facility]
--- NOTE | 2024-11-28 08:45 | CT_ITS ---
FINAL REPORT TECHNIQUE: Thin section axial images were obtained from the lung apices to the upper abdomen by computed tomography. Reformatted images were obtained and reviewed. This study was performed with techniques to keep radiation doses al low as reasonably achievable (ALARA). Individualized dose reduction techniques using automated exposure control or adjustment of mA and/or kV according to the patient's size were employed. CLINICAL HISTORY: lung cancer screening SMOKER, 2 PPD X 40 YEARS COMPARISON: None FINDINGS: CHEST CT LOW DOSE 64-year-old male, smoker, [id number] history CTDI vol (mGy): 2.90 DLP (mGy-cm): 106.81 There is no axillary adenopathy. There is no mediastinal or hilar mass or adenopathy. The heart is normal in size. There is no pericardial or pleural effusion. Lung window images demonstrate 2 densities in the right upper lobe. The larger density is more lateral, and measures up to 9 mm in diameter. The smaller measures up to 7 mm, and is slightly more medial. These are best visualized on image #19 of series 4. Limited images of the upper abdomen demonstrate a small 3 mm benign-appearing cyst in the liver. IMPRESSION: Lung-RADS category 4A. Recommend 3 month follow up low dose chest CT. Reviewed, Interpreted and Dictated by Alden Taet MD Transcribed by Alpa Laird Authenticated and [facility]
== END 2024-11-28 23:59 | disposition home or self-care (01) ==
LOC: RAD 08:42
PROVIDERS: PCP Family Medicine; Visit Provider Family Medicine
DX: M47.816 Spondylosis without myelopathy or radiculopathy, lumbar region (principal); R91.8 Other nonspecific abnormal finding of lung field; F17.210 Nicotine dependence, cigarettes, uncomplicated; Z12.2 Encounter for screening for malignant neoplasm of respiratory organs
CPT/HCPCS: 71271; 72100

== ENCOUNTER 2024-12-03 11:26 | Outpatient (CLI) | payer OTHER, SELFPAY | END 2024-12-03 23:59 | disposition home or self-care (01) | LOC: LAB 11:26 | PROVIDERS: PCP Family Medicine; Visit Provider Internal Medicine Medical Oncology | DX: D47.1 Chronic myeloproliferative disease (principal) | CPT/HCPCS: 36415 ==

== ENCOUNTER 2025-02-09 10:52 | Outpatient (CLI) | payer OTHER, SELFPAY ==
[2025-02-09 15:14] LABS: Hematocrit 43.1 % (42.0-52.0); Hemoglobin 14.5 g/dL (14.1-18.0); Immature Granulocytes % 0.3 %; Mean Corpuscular HGB Conc 33.6 g/dL (31.8-35.4); Mean Corpuscular Hemoglobin 30.5 pg (27.0-31.2); Mean Corpuscular Volume 90.5 fl (80-94); Nucleated Red Blood Cells % 0 %; Platelet Count 277 K/mm3 (142-424); Red Blood Count 4.76 M/mm3 (4.60-6.20); Red Cell Distribution Width-SD 43.0 fL; White Blood Count 10.5 K/mm3 (4.8-10.8)
[2025-02-09 15:56] LABS: Albumin Level 4.4 g/dl (3.5-5.0); Chloride 105 mmol/L (98-107); Potassium 4.0 mmoL/L (3.5-5.1); Sodium 140 mmol/L (136-145)
[2025-02-09 15:58] LABS: Alanine Aminotransferase 22 U/L (12-78); Anion Gap 12.0 mEq/L (5-15); Aspartate Amino Transferase 29 U/L (17-59); Blood Urea Nitrogen 17 mg/dl (9-20); Carbon Dioxide 27 mmol/L (22.0-30.0); Creatinine,Serum 0.90 mg/dl (0.66-1.25); Estimated Glomerular Filt Rate 85 ml/min (>60); GFR (African American) 103 ML/MIN (>60)
[2025-02-09 15:59] LABS: Albumin/Globulin Ratio 1.7 (1.1-1.8); Alkaline Phosphatase 47 U/L (38-126); Bilirubin,Total 0.4 mg/dl (0.2-1.3); Calcium 9.4 mg/dl (8.4-10.2); Cholesterol 120 mg/dl (140-200); Globulin 2.6 g/dL (1.3-3.2); Glucose 113 mg/dl (74-100); HDL Cholesterol 43 mg/dl (40-60); Total Protein,Serum 7.0 g/dl (6.3-8.2); Triglycerides 136 mg/dl (30-150)
[2025-02-09 16:31] LABS: Thyroid Stimulating Hormone 2.26 uIU/mL (0.465-4.68)
[2025-02-09 16:32] LABS: Hemoglobin A1C 5.9 % (4.0-6.0)
--- OUTSIDE RECORDS SUMMARY | 2025-02-10 14:46 | XMS_ITS | Clinical Summary ---
Author Organization [facility] Address [address] [place] [address] Care Team Providers Care Senior Specialist Name Role Phone Fred Philip APRN Primary Care Provider [phone] Allergies Active Allergy Reactions Criticality Noted Date Comments Nsaids Unknown - Patient st ates they do not know rxn details Low 06/14/2018 Medications Aspirin Low Dose 81 MG EC tablet TAKE ONE TABLET BY MOUTH EVERY DAY FOR heart health 3 Active cetirizine (ZyrTEC) 10 MG tablet Take 1 tablet (10 mg) by mouth 1 (one) time each day. 3 Active CLOPIDOGREL BISULFATE PO 0 Active ergocalciferol 1.25 MG (41666 UT) capsule Take 1 capsule (50,000 Units) by mouth 1 (one) time per week. 3 Active esomeprazole (NexIUM) [address] capsule 3 Active isosorbide mononitrate ER (Imdur) 30 MG 24 hr tablet Take 1 tablet (30 mg) by mouth 1 (one) time each day. 3 Active levothyroxine (Synthroid, Levoxyl) 25 MCG tablet Take 1 tablet (25 mcg) by mouth 1 (one) time each day. 3 Active methocarbamol (Robaxin) 750 MG tablet TAKE ONE TABLET BY MOUTH THREE TIMES DAILY FOR PAIN MAY CAUSE DROWSINESS 3 Active omeprazole (PriLOSEC) [address] capsule TAKE 1 CAPSULE DAILY EVERY MORNING BEFORE BREAKFAST. 8 Active Xarelto 2.5 MG tablet Take 1 tablet (2.5 mg) by mouth. 3 Active rOPINIRole (Requip) 2 MG tablet Take 1 tablet (2 mg) by mouth. 3 Active rosuvastatin (Crestor) 20 MG tablet Take 1 tablet (20 mg) by mouth 1 (one) time each day. 3 Active predniSONE (Deltasone) 20 MG tablet TAKE ONE TABLET BY MOUTH TWICE DAILY FOR 5 DAYS -- FINISH ALL MEDICINE -- --TAKE WITH FOOD-- 3 Active albuterol 108 (90 Base) MCG/ACT inhaler INHALE 1 PUFF FOUR TIMES DAILY NEEDED FOR SHORTNESS OF BREATH OR WHEEZING 3 Active azithromycin (Zithromax) 250 MG tablet TAKE 2 TABLETS BY MOUTH ON DAY 1, THEN TAKE 1 TABLET DAILY ON DAYS 2-5 3 Active cyclobenzaprine (Flexeril) 10 MG tablet TAKE ONE TABLET BY MOUTH THREE TIMES DAILY MAY CAUSE DROWSINESS 3 Active famotidine (Pepcid) 40 MG tablet Take 1 tablet (40 mg) by mouth every night. 3 Active meclizine (Antivert) 12.5 MG tablet TAKE ONE TABLET BY MOUTH TWICE DAILY NEEDED FOR dizziness 3 Active pantoprazole (Protonix) 40 MG EC tablet Take 1 tablet (40 mg) by mouth 1 (one) time each day. 3 Active Nicotine Step 1 21 MG/24HR patch apply 1 PATCH TO THE SKIN ONCE DAILY over 24 hours FOR 21 DAYS DIRECTED 21 patch 3 Active GNP Nicotine Mini 2 MG lozenge DISSOLVE 1 lozenge in THE MOUTH NEEDED FOR smoking cessation 30 lozenge 3 Active Active Problems No known active problems Family History Medical History Relation Name Comments Conversions - Other Father Back pro blem Other cancer Father Conversions - Other Mother Back pro blem Heart attack Mother Hypertension Mother Relation Name Status Comments Father Mother Social History Tobacco Use Types Packs/Day Years Used Date Smoking Tobacco: Every Day Cigarettes 1.5 52.6 Started: 1972 Passive Smoke Exposure: Current Smokeless Tobacco: Never Tobacco Cessation:Ready to Q uit: Not Asked; Counseling Given: Not Answered Alcohol Use Standard Drinks/Week Comments Not Currently 0 (1 standard drink = 0.6 oz pur e alcohol) PHQ-2 Answer Date Recorded Patient Health Questionnaire-2 Score 0 10/02/2022 PHQ-2A Answer Date Recorded Patient Health Questionnaire-2 Score 0 10/02/2022 Sex and Gender Information Value Date Recorded Sex Assigned at Not on file Legal Sex Male 8:37 PM EDT Gender Identity Not on file Sexual Orientation Not on file Last Filed Vital Signs Vital Sign Reading Time Taken Comments Blood Pressure 142/89 02/20/2023 2:25 PM EDT Pulse 65 02/20/2023 2:25 PM EDT Temperature 36.1 C (97 F) 02/20/2023 2:23 PM EDT Respiratory Rate 18 02/20/2023 2:23 PM EDT Oxygen Saturation - - Inhaled Oxygen Concentration - - Weight 72.8 kg (160 lb 7.9 oz) 02/20/2023 2:23 P M EDT Height 170.2 cm (5' 7 ) 02/20/2023 2:23 PM EDT Body Mass Index 25.14 02/20/2023 2:23 PM EDT Plan of Treatment Health Maintenance Due Date Last Done Comments [facility]-HIV Screening 1961 [facility]-/Child/Adol SDOH Screenings 1961 [id number] Vaccine (#1) 1966 [facility]- SDOH Screenings 11/10/1979 [facility]-Adult SDOH Screenings 11/10/1979 [facility]-Zoster Vaccines (1 of 2) 1980 CT Colonography 2006 Colonoscopy 2006 FIT-DNA 2006 FIT 2006 FOBT 2006 Sigmoidoscopy 2006 [facility]-Colorectal Cancer Screening 2006 [facility]-Pneumococcal Vaccine: 50 + Years (1 of 1 - PCV) 11/10/2011 [facility]-RSV Vaccine: 60+ Years o r (1 - Risk 60-74 years 1-dose series) 2021 [facility]-Depression Screening 10/03/2023 10/02/2022 [facility]-Influenza Vaccine (#1) 2025 [facility]-DTaP,Tdap,and Td Vaccine s (2 - Td or Tdap) 08/05/2029 08/05/2019 [facility]-Hepatitis C Screening Completed 08/05/2019 [facility]-Obesity Intervention Completed 023, 10/02/2022 HPV Vaccines Aged Out No longer eligi ble based on patient's age to complete this topic [facility]-HIB Vaccines Aged Out No longer e ligible based on patient's age to complete this topic [facility]-Hepatitis A Vaccines Aged Out No longer eligible based on patient's age to complete this topic [facility]-IPV Vaccines Aged Out No longer e ligible based on patient's age to complete this topic [facility]-Rotavirus Vaccines Aged Out No lo nger eligible based on patient's age to complete this topic Procedures Procedure Name Priority Date/Time Associated Diagnosis Comments HEPATITIS C ANTIBODY - ED W/REFLEX TO HCV QUANT PCR Routine 08/05/2019 6:35 PM EST from Last 3 Months or Most Recently Relevant to Health Maintenance Results * Josephine Hepatitis C Antibody (08/05/2019 6:35 PM EST) [facility] NE[facility] Reference Range: Negative SUNQUEST 08/05/2019 6:35 PM EST 08/05/2019 6:56 PM EST us Brice Dupont MD LAB BLOOD ORDERABLES Final Result SUNQUEST from Last 3 Months or Most Recently Relevant to Health Maintenance Care Teams Senior Specialist Relationship Specialty Start Date End Date Fred Philip APRN [address] [place] [address] PCP - General 08/23/22
--- OUTSIDE RECORDS SUMMARY | 2025-02-10 14:46 | XMS_ITS | Clinical Summary ---
Author Organization [facility] Address [address] [place] [address] Care Team Providers Care Fur Stretcher Name Role Phone Unavailable Primary Care Provider Unavailabl e Social History Tobacco Use Types Packs/Day Years Used Date Smoking Tobacco: Never Assessed Abuse Screen Answer Date Recorded Unsafe at Home or Work/School Not on file Feels Threatened by Someone? Not on file 04/2023 Does Anyone Keep You from Co ntacting Others or Doint Things Outside the Home? Not on file 04/10/2023 Physical Sign of Abuse Present Not on file 1 Housing Stability Answer Date Recorded Current Living Arrangements Not on file 04/01 Potentially Unsafe Housing Conditions Not on parviz e 04/10/2023 Family and Community Support Answer Lincoln e Recorded Help with Day-to-Day Activities Not on file 04/10/2023 Lonely or Isolated Not on file 04/10/2023 Employment Answer Date Recorded Do you want help finding or keeping work or a darvin b? Not on file 04/10/2023 Disabilities Answer Date Recorded Concentrating, Remembering, or Making Decisions Difficulty Not on file 04/10/2023 Doing Errands Independently Difficulty Not on fi le 04/10/2023 Education Answer Date Recorded Help with school or training? Not on file Preferred Language Not on file 04/10/2023 Sex and Gender Information Value Date Recorded Sex Assigned at Not on file Legal Sex Male 1:40 PM EDT Gender Identity Not on file Sexual Orientation Not on file Plan of Treatment Health Maintenance Due Date Last Done Comments ANNUAL PHYSICAL 1960 HEPATITIS C SCREENING 1961 TDAP/TD VACCINES (1 - Tdap) 1980 COLOGUARD 2006 COLON CANCER SCREENING 5 YEAR SIGMOIDOSCOPY 2006 COLONOSCOPY [address]CER SCREENING [address] COLONOGRAPHY 2006 FECAL OCCULT BLOOD TEST 2006 FIT Testing (1 year) 2006 Pneumococcal Vaccine 50+ (1 of 1 - PCV) 11/10/2011 ZOSTER VACCINE (1 of 2) 11/10/2011 COVID-19 Vaccine ( - 2023- season) 2024 INFLUENZA VACCINE 04/01/2025
== END 2025-02-09 23:59 | disposition home or self-care (01) ==
LOC: LAB.DROPOF 02-10 14:42
PROVIDERS: PCP Family Medicine; Visit Provider Family Medicine
DX: E78.2 Mixed hyperlipidemia (principal); E03.8 Other specified hypothyroidism; D72.829 Elevated white blood cell count, unspecified; I10 Essential (primary) hypertension; R73.09 Other abnormal glucose
CPT/HCPCS: 80053; 80061; 83036; 84443; 85025

== ENCOUNTER 2025-03-09 15:24 | Outpatient (CLI) | payer OTHER, SELFPAY ==
[2025-03-09 19:50] LABS: Hematocrit 41.2 % (42.0-52.0); Hemoglobin 14.1 g/dL (14.1-18.0); Immature Granulocytes % 0.3 %; Mean Corpuscular HGB Conc 34.2 g/dL (31.8-35.4); Mean Corpuscular Hemoglobin 31.3 pg (27.0-31.2); Mean Corpuscular Volume 91.6 fl (80-94); Nucleated Red Blood Cells % 0 %; Platelet Count 296 K/mm3 (142-424); Red Blood Count 4.50 M/mm3 (4.60-6.20); Red Cell Distribution Width-SD 43.4 fL; White Blood Count 13.3 K/mm3 (4.8-10.8)
[2025-03-10 00:11] LABS: RBC Morphology Normal; Total Cells Counted 100
--- OUTSIDE RECORDS SUMMARY | 2025-03-10 10:57 | XMS_ITS | Clinical Summary ---
Author Organization [facility] Address [address] [place] [address] Care Team Providers Care Fuel Operator Name Role Phone Unavailable Primary Care Provider [...] 11/10/2011 COVID-19 Vaccine ( - 2023- season) 2025 INFLUENZA VACCINE 04/01/2025
--- OUTSIDE RECORDS SUMMARY | 2025-03-10 10:58 | XMS_ITS | Clinical Summary ---
Author Organization [facility] Address [address] [place] [address] Care Team Providers Care Radar Technician Name Role Phone Fred Philip APRN Primary Care Provider [phone] [phone] Allergies Active Allergy Reactions Criticality Noted Date [...] BISULFATE PO 0 Active ergocalciferol 1.25 MG (05353 UT) capsule Take 1 capsule (50,000 Units) [...] Date Smoking Tobacco: Every Day Cigarettes 1.5 52.7 Started: 1972 Passive Smoke Exposure: Current Smokeless [...] [facility]-HIV Screening 1961 [facility]-/Child/Adol SDOH Screenings 1961 [id number] Vaccine (#1) 1966 [facility]- SDOH Screenings 11/10/1979 [...] C Antibody (08/05/2019 6:35 PM EST) [facility] NEGATIVE Reference Range: Negative SUNQUEST 08/05/2019 6:35 PM EST 08/05/2019 6:56 PM EST us Brice Dupont MD LAB BLOOD ORDERABLES Final Result SUNQUEST from Last 3 Months or Most Recently Relevant to Health Maintenance Care Teams Radar Technician Relationship Specialty Start Date End Date Fred Philip APRN [address] [place] [address] PCP - General 08/23/22
== END 2025-03-09 23:59 ==
LOC: LAB.DROPOF 03-10 10:46
PROVIDERS: PCP Family Medicine; Visit Provider Family Medicine
DX: C91.10 Chronic lymphocytic leukemia of B-cell type not having achieved remission (principal)
CPT/HCPCS: 85007; 85025

== ENCOUNTER 2025-03-17 14:52 | Outpatient (CLI) | payer OTHER, SELFPAY ==
--- OUTSIDE RECORDS SUMMARY | 2025-03-17 14:54 | XMS_ITS | Clinical Summary ---
Author Organization [facility] Address [address] [place] [address] Care Team Providers Care Mexican Food Maker Hand Name Role Phone Unavailable Primary Care Provider [...]
--- OUTSIDE RECORDS SUMMARY | 2025-03-17 14:54 | XMS_ITS | Clinical Summary ---
Author Organization [facility] Address [address] [place] [address] Care Team Providers Care Metal Pattern Maker Name Role Phone Fred Philip APRN Primary Care Provider [phone] [phone] Allergies Active Allergy Reactions Criticality Noted Date [...] BISULFATE PO 0 Active ergocalciferol 1.25 MG (86975 UT) capsule Take 1 capsule (50,000 Units) [...] Date Last Done Comments [facility]-HIV Screening 1961 [facility]-Infant/Child/Adol SDOH Screenings 1961 [id number] Vaccine (#1) 1966 [facility]- SDOH Screenings 11/10/1979 [...] C Antibody (08/05/2019 6:35 PM EST) Path[facility] Hep[facility] C Ab NEGATIVE Reference Range: Negative SUNQUEST 08/05/2019 6:35 PM EST 08/05/2019 6:56 PM EST us Brice Dupont MD LAB BLOOD ORDERABLES Final Result SUNQUEST from Last 3 Months or Most Recently Relevant to Health Maintenance Care Teams Metal Pattern Maker Relationship Specialty Start Date End Date Fred Philip APRN [address] [place] [address] PCP - General 08/23/22
--- NOTE | 2025-03-17 15:15 | CT_ITS ---
FINAL REPORT CLINICAL HISTORY: Follow-up pulmonary nodule COMPARISON: LDCT 11/28/2024 FINDINGS: CT CHEST without contrast COMPARISON: LDCT 11/28/2024. TECHNIQUE: Axial CT without contrast This study was performed with techniques to keep radiation doses as low as reasonably achievable, (ALARA). Individualized dose reduction techniques using automated exposure control or adjustment of mA and/or kV according to the patient's size were employed. FINDINGS: There is redemonstration of ovoid nodules present in the right apex. At the more lateral nodule measures 11 x 4 mm in size, stable. The more medial nodule measures 7 x 3.5 mm in size, also stable. The remaining lungs are clear without evidence of mass or infiltrate. No pleural or pericardial effusion is seen . No adenopathy is present . IMPRESSION: 1. Stable right upper lobe nodules remain present compared with the prior exam of 11/28/2024. Favor post inflammatory etiology. Recommend 6-month follow-up LDCT. This study was performed using automated techniques to achieve radiation exposure as low as reasonably achievable Reviewed, Interpreted and Dictated by Davidson Howell MD Transcribed by Alpa Laird Authenticated and . [facility]
== END 2025-03-17 23:59 | disposition home or self-care (01) ==
PROVIDERS: PCP Family Medicine; Visit Provider Family Medicine
DX: R91.8 Other nonspecific abnormal finding of lung field (principal)
CPT/HCPCS: 71250

== ENCOUNTER 2025-04-29 11:13 | Observation (INO) | payer OTHER, SELFPAY ==
[2025-04-29] VITALS (54 sets, daily range): BP systolic 125–187; BP diastolic 61–94; PULSE 50–70; RESP 16–19; TEMP 36.4–36.8; O2SAT 91–100; BMI 25.2
--- NOTE | 2025-04-29 06:59 | IR_ITS ---
APPROVED REPORT Patient Location: Outpatient PROCEDURES Right femoral arterial access Catheter placement abdominal aorta Abdominal aortography Catheter placed in the left superficial femoral artery Left superficial femoral artery selective angiogram Drug-coated balloon angioplasty left superficial femoral artery INDICATION Ophelia claudication class III, Peripheral artery disease, Atherosclerosis of the left superficial femoral artery accompanied by slow flow down the SFA Informed consent was obtained prior to the procedure. COMPLICATIONS NONE Estimated Blood Loss: LESS THAN 10 ML TECHNIQUE 1% lidocaine used inside the right groin the right femoral reflexes via the central technique and a 5 [place] sheath is placed in the right femoral artery. A pigtail catheter was advanced to the abdominal aorta abdominal aortography was performed. The catheter was then repositioned and bilateral iliofemoral runoff was performed. Following this a rim catheter was used to cannulate the left common iliac artery and an advantage wire was placed distally into the left SFA under fluoroscopic guidance. The 5 [place] sheath was exchanged for a long 6 [place] destination sheath and therapeutic heparin was administered giving a therapeutic ACT. A 6 mm x 60 mm drug-coated balloon was deployed at 10 ayse for 3 minutes reducing the stenosis. Excellent angiographic results were obtained. Significant improvement in flow occurred from the beginning of the angioplasty to the end of the procedure. After achieving excellent intragraft results the apparatus was removed and the sheath was taped into place patient was transferred to the postop already in stable condition ANGIOGRAPHIC RESULTS Distal abdominal aorta is calcified but patent Bilateral common iliac arteries are mildly diseased but patent Bilateral internal iliac arteries are patent Right external iliac artery has a stent in its proximal segment which is widely patent with minimal in-stent restenosis and excellent proximal distal transitioning Left external iliac artery is patent Bilateral common femoral arteries are patent Right superficial femoral artery is occluded throughout its entire course. The right profunda femoris artery is widely patent and collateralizes the popliteal artery. There is slow three-vessel runoff below the knee on the right side Left profunda femoris artery is patent Left superficial femoral artery has a proximal eccentric 70% stenosis with additional 40 and 50% mid vessel distal stenoses. It gives inline flow into the popliteal artery which is widely patent with three-vessel runoff below the knee on the left IMPRESSION Peripheral artery disease as described above most notably with severe disease in the proximal left SFA accompanied by slow flow with successful drug-coated balloon angioplasty which gave excellent angiographic results and improved flow into the popliteal artery PLAN 1. Recommend Xarelto 2.5 twice daily plus aspirin 81 mg daily 2. Physical therapy physical rehabilitation 3. LDL less than 55 to be achieved with high intensity statin 4. Avoidance of tobacco products 5. Risk factor modification Electronically signed by : Dario Tovar MD 05/01/2025 14:21:26
[2025-04-29 09:06] LABS: Hematocrit 45.8 % (42.0-52.0); Hemoglobin 15.5 g/dL (14.1-18.0); Immature Granulocytes % 0.3 %; Mean Corpuscular HGB Conc 33.8 g/dL (31.8-35.4); Mean Corpuscular Hemoglobin 30.9 pg (27.0-31.2); Mean Corpuscular Volume 91.4 fl (80-94); Nucleated Red Blood Cells % 0 %; Platelet Count 316 K/mm3 (142-424); Red Blood Count 5.01 M/mm3 (4.60-6.20); Red Cell Distribution Width-SD 42.7 fL; White Blood Count 13.4 K/mm3 (4.8-10.8)
[2025-04-29] MEDS: HEPARIN 1,000 UNITS/500ML NS (CATH LAB) 3000 UNIT IV (09:17)
[2025-04-29] MEDS: LIDOCAINE 1% 10ML MDV 10 ML IJ (09:18)
[2025-04-29] MEDS: 0.9 % SODIUM CHLORIDE 500 ML 25 ML IV (09:18)
[2025-04-29 09:20] LABS: Anion Gap 9.7 mEq/L (5-15); Blood Urea Nitrogen 17 mg/dl (9-20); Calcium 9.7 mg/dl (8.4-10.2); Carbon Dioxide 30 mmol/L (22.0-30.0); Chloride 102 mmol/L (98-107); Creatinine Clearance Estimated 71 mL/min (50-200); Creatinine,Serum 1.10 mg/dl (0.66-1.25); Estimated Glomerular Filt Rate 68 ml/min (>60); GFR (African American) 82 ML/MIN (>60); Glucose 114 mg/dl (74-100); Potassium 3.7 mmoL/L (3.5-5.1); Sodium 138 mmol/L (136-145)
[2025-04-29 09:31] LABS: RBC Morphology Normal; Total Cells Counted 100
[2025-04-29] MEDS: MIDAZOLAM HCL 1MG/ML 5ML VIAL 1 MG IV (10:56)
[2025-04-29] MEDS: FENTANYL 100MCG/2ML VIAL 50 MCG IV (10:57)
[2025-04-29] MEDS: HEPARIN 1,000 UNITS/ML 10ML VIAL (CATH LAB) 5000 UNIT IV (10:57)
[2025-04-29] MEDS: IOHEXOL-240 100ML BOTTLE 180 ML IV (11:17)
[2025-04-29 11:35] LABS: CATHL Activated Clotting Time 251 SEC (74-125)
--- NOTE | 2025-04-29 11:58 | HMH.PHAINT1 ---
Pharmacy Intervention Comments: MEDICATION RECONCILIATION COMPLETED ON PATIENT USING EXTERNAL FILL HISTORY FROM PHARMACY. -JOSUE SALAS, ALEJANDRAD
--- NOTE | 2025-04-29 13:11 | PC.NURSE ---
On floor groin tegaderm 2x2 c/d/i.
[2025-04-29] MEDS: HYDROCODONE/APAP 5/325 MG TABLET 1 TAB PO (14:00)
--- NOTE | 2025-04-29 15:08 | EXP.HP ---
History of Present Illness *Admission Date: 04/29/25 *Reason for visit:: Outpatient peripheral revascularization *History of present illness: Jasmeet Carter is a 64-year-old male with a medical history significant for extensive CAD presented for an outpatient peripheral revascularization and underwent balloon angioplasty for left lower extremity peripheral disease. Patient tolerated procedure well. Discussed with Dr. Tovar's team, he will be admitted overnight for monitoring for bleeding. On my evaluation, patient states he is having low back pain and left lower quadrant abdominal pain. He states this started this morning. Denies chest pain, shortness of breath, nausea/vomiting, fever/chills, diarrhea, constipation. WBC 13.4 but otherwise CBC, CMP relatively unremarkable. [facility] Disclaimer: The information contained in this section may have been updated after the patient was seen, as this information can be updated by other users. 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 Chronic sinusitis Bilateral tinnitus Facial trauma Critical limb ischemia of right lower extremity History of gastroesophageal reflux (GERD) History of peripheral arterial disease Neuropathy Hyperlipidemia (~08/21/17) Vitamin D deficiency (~08/21/17) Hypothyroidism (~08/21/17) Surgical History History of colonoscopy History of knee surgery History of intravascular stent placement History of skin graft History of facial fracture repair Family History Other Family history of cardiomyopathy Family history of myocardial infarction Social History Smoking Status: Current every day smoker tobacco type: cigarettes packs per day: 2 pack-years: 51 second hand exposure: No alcohol intake: former substance use type: denies use current occupational status: other Travel in the last 8 weeks?: None household members: spouse and family housing: house lives independently: No marital status: education level: high school service: No halfway: No 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 Have you lived/traveled outside US in past 30 days?: No Contact w/someone who lives/traveled outside US past 30 days?: No Exposure to someone with infectious disease in past 14 days?: No Do you have a fever (greater than 100.4 F or 38 C)?: No Have you tested positive for COVID-19?: No Exposed to someone with COVID-19 in past 14 days?: No Do you have a sore throat?: No Do you have a cough?: No Do you have any weakness?: No Do you have any diarrhea?: No Are you experiencing any unusual bleeding?: No Do you have any muscle aches/pain?: No Do you have any abdominal pain?: No Are you experiencing loss of taste or smell?: No Other Medical History Have you received the Flu Vaccine for this season: No Have you received the Pneumonia Vaccine: No Meds Home Medications and Allergies Home Medications ?Medication ?Instructions ?Recorded ?Confirmed ?Type rosuvastatin 40 mg tablet 40 mg PO DAILY 90 days #90 tabs 10/17/24 04/29/25 Rx aspirin 81 mg tablet,delayed 81 mg PO DAILY 04/29/25 04/29/25 History release cetirizine 10 mg tablet 10 mg PO DAILY 04/29/25 04/29/25 History famotidine 40 mg tablet 40 mg PO HS 04/29/25 04/29/25 History fenofibrate 50 mg capsule 50 mg PO DAILY 04/29/25 04/29/25 History levothyroxine 25 mcg tablet 37.5 mcg PO DAILY 04/29/25 04/29/25 History meclizine 12.5 mg tablet 12.5 mg PO BIDP PRN Dizziness 04/29/25 04/29/25 History oxycodone 5 mg tablet 5 mg PO TIDP PRN Moderate Pain 04/29/25 04/29/25 History (Scale Score 5-6) pantoprazole 40 mg tablet,delayed 40 mg PO BID 04/29/25 04/29/25 History release rivaroxaban 2.5 mg tablet (Xarelto) 2.5 mg PO BID 04/29/25 04/29/25 History New Prescriptions to Start Prescriptions: Allergies Allergy/AdvReac Type Severity Reaction Status Date / Time NSAIDS (Non-Steroidal AdvReac Mild Gastrointestinal Verified 04/15/25 13:04 Anti-Inflamma (NSAIDS Upset (NON-STEROIDAL ANTI-INFLAMMA) Exam Data for Last 24 hours Vital signs and Labs for Last 24 Hours: Temp Pulse Resp BP Pulse Ox O2 Del Method FiO2 98.1 F 57 L 18 133/71 100 Room Air 100 04/29/25 14:30 04/29/25 14:30 04/29/25 14:30 04/29/25 14:30 04/29/25 14:30 04/29/25 14:34 04/29/25 11:15 Laboratory Results - last 24 hr 04/29/25 09:00: WBC 13.4 H, RBC 5.01, Hgb 15.5, Hct 45.8, MCV 91.4, MCH 30.9, MCHC 33.8, RDW 12.7, Plt Count 316, MPV 10.0, Neut % (Auto) 43.7, Lymph % (Auto) 45.7, [place] % (Auto) 6.2, Eos % (Auto) 3.4, Baso % (Auto) 0.7, Neut # (Auto) 5.8, Lymph # (Auto) 6.1 H, [place] # (Auto) 0.8, Eos # (Auto) 0.5 H, Baso # (Auto) 0.1, Total Counted 100, Neutrophils % (Manual) 48, Lymphocytes % (Manual) 44, Monocytes % (Manual) 7, Eosinophils % (Manual) 1, Platelet Estimate Normal, RBC Morphology Normal, Sodium 138, Potassium 3.7, Chloride 102, Carbon Dioxide 30, Anion Gap 9.7, BUN 17, Creatinine 1.10, Estimated Creat Clear 71, Estimated GFR 68, Est GFR ( Amer) 82, Glucose 114 H, Calcium 9.7 04/29/25 10:55: Activated Clotting Time 251 H* I & O for Last 24 hours: Intake & Output 04/26/25 04/27/25 04/28/25 04/29/25 23:59 23:59 23:59 23:59 Intake Total 500 / 500 Balance 500 / 500 Weight 73.028 kg Constitutional Constitutional: no acute distress *Routine HEENT Exam Head: Present normocephalic Eye: Present EOMI and PERRL ENT: Present mucous membranes moist *Routine Neck Exam Neck: Present supple; Absent lymphadenopathy *Routine Respiratory Exam Respiratory: Present CTA bilaterally *Routine Cardiovascular Exam Cardiovascular: Present RRR *Routine Abdominal Exam Abdominal: Present soft and normoactive bowel sounds; Absent tenderness Comments: Mild left lower quadrant abdominal tenderness to palpation. *Routine Rectal Exam Rectal:: deferred *Routine Genitalia Exam Genitalia:: deferred *Routine Extremities Exam Extremities: Absent cyanosis, clubbing or edema *Routine Skin Exam Skin: Present warm; Absent rash *Routine Neurological Exam Neurological: Present alert and oriented X3 Assessment and Plan *Assessment and plan (1) PAD (peripheral artery disease): Status: Chronic Category: Medical Code(s): I73.9 - Peripheral vascular disease, unspecified Plan Jasmeet Carter is a 64-year-old male with a medical history significant for extensive CAD presented for an outpatient peripheral revascularization and underwent balloon angioplasty for left lower extremity peripheral disease. Patient tolerated procedure well. Discussed with Dr. Tovar's team, he will be admitted overnight for monitoring for bleeding. On my evaluation, patient states he is having low back pain and left lower quadrant abdominal pain. He states this started this morning. Denies chest pain, shortness of breath, nausea/vomiting, fever/chills, diarrhea, constipation. WBC 13.4 but otherwise CBC, CMP relatively unremarkable. #PAD ? S/p peripheral revascularization of left lower extremity peripheral disease. ? Continue home aspirin 81 mg, rivaroxaban 2.5 mg twice daily, rosuvastatin 40 mg. ? Anticipate discharge in the morning if stable. #Left lower quadrant abdominal pain ? WBC 13.4, follow-up CT abdomen/pelvis. Denies diarrhea, constipation. #GERD ? Continue home PPI. #Hypothyroidism ? Continue home levothyroxine 37.5 mcg. Follow-up TSH. Full code DVT prophylaxis: Lovenox 40 mg
--- NOTE | 2025-04-29 15:35 | DIET.NUTRFU ---
RD consulted for trouble swallowing. Upon visit patient was sleeping. Nurse indicated he tolerated his cardiac diet with no issues. Patient is post cardiac procedure will attempt to follow-up in the morning.
[2025-04-29] MEDS: HYDROCODONE/APAP 5/325 MG TABLET 2 TAB PO (17:24)
--- NOTE | 2025-04-29 20:00 | CT_ITS ---
PROCEDURE INFORMATION: Exam: CT Abdomen And Pelvis With Contrast Exam date and time: 04/29/2025 8:53 PM Age: 64 years old Clinical indication: Abdominal pain; Additional info: Left lower quadrant abdominal pain TECHNIQUE: Imaging protocol: Computed tomography of the abdomen and pelvis with contrast. Radiation optimization: All CT scans at this facility use at least one of these dose optimization techniques: automated exposure control; mA and/or kV adjustment per patient size (includes targeted exams where dose is matched to clinical indication); or iterative reconstruction. Contrast material: ISOVUE; Contrast volume: 75 ml; Contrast route: IV; COMPARISON: CT ANGIO ABDOMEN PELVIS 03/19/2023 3:27 PM FINDINGS: Liver: Scattered liver cysts noted. Gallbladder and biliary ducts: Gallbladder is distended without radiopaque cholelithiasis. No biliary ductal dilation. Pancreas: No peripancreatic fluid stranding. No main pancreatic ductal dilation. Spleen: No splenomegaly. Adrenal glands: The adrenal glands are normal. Kidneys and ureters: Nephrograms are symmetric. No nephrolithiasis or hydroureteronephrosis on either side. No solid lesions Stomach and bowel: No bowel wall thickening or distention. Appendix: A normal appendix is identified. Intraperitoneal space: Unremarkable. No free air. No significant fluid collection. Vasculature: Major aortic branches are patent. There is nonspecific circumferential thickening of the right common femoral artery. There is a stent graft in the right external iliac artery. Major aortic branches are patent. Lymph nodes: No evidence of retroperitoneal or mesenteric lymphadenopathy. Urinary bladder: Urinary bladder is unremarkable. Reproductive: Unremarkable as visualized. Bones/joints: No acute osseous abnormality. Soft tissues: Unremarkable. IMPRESSION: No acute abnormality in the abdomen or pelvis
[2025-04-29] MEDS: FAMOTIDINE 20MG TABLET 40 MG PO (20:22)
[2025-04-29] MEDS: PANTOPRAZOLE 40MG TABLET 40 MG PO (20:22)
[2025-04-29] MEDS: ATORVASTATIN 40MG TABLET 80 MG PO (20:22)
[2025-04-29] MEDS: IOPAMIDOL-370 (76%);100ML BOTTLE 75 ML IV (20:52)
[2025-04-29] MEDS: SODIUM CHLORIDE 0.9% 10ML SYR (RAD ONLY) 10 ML IV (20:52)
--- NOTE | 2025-04-29 20:58 | PC.NURSE ---
Pt transported to CT via wheelchair. Patient tolerated well. no complaints. Patient provided warm blanket per request.
[2025-04-30] VITALS (7 sets, daily range): BP systolic 123–144; BP diastolic 49–74; PULSE 49–60; RESP 12–18; TEMP 36.4–36.9; O2SAT 96–99; BMI 24.7
[2025-04-30 06:18] LABS: Hematocrit 44.3 % (42.0-52.0); Hemoglobin 14.5 g/dL (14.1-18.0); Immature Granulocytes % 0.3 %; Mean Corpuscular HGB Conc 32.7 g/dL (31.8-35.4); Mean Corpuscular Hemoglobin 30.0 pg (27.0-31.2); Mean Corpuscular Volume 91.5 fl (80-94); Nucleated Red Blood Cells % 0 %; Platelet Count 260 K/mm3 (142-424); Red Blood Count 4.84 M/mm3 (4.60-6.20); Red Cell Distribution Width-SD 43.5 fL; White Blood Count 11.8 K/mm3 (4.8-10.8)
[2025-04-30 06:33] LABS: Albumin Level 3.2 g/dl (3.5-5.0); Chloride 104 mmol/L (98-107); Sodium 136 mmol/L (136-145)
[2025-04-30 06:34] LABS: Potassium 4.8 mmoL/L (3.5-5.1)
[2025-04-30 06:36] LABS: Alanine Aminotransferase 19 U/L (12-78); Albumin/Globulin Ratio 0.8 (1.1-1.8); Alkaline Phosphatase 49 U/L (38-126); Anion Gap 6.8 mEq/L (5-15); Aspartate Amino Transferase 32 U/L (17-59); Bilirubin,Total 0.2 mg/dl (0.2-1.3); Blood Urea Nitrogen 14 mg/dl (9-20); Calcium 9.1 mg/dl (8.4-10.2); Carbon Dioxide 30 mmol/L (22.0-30.0); Creatinine Clearance Estimated 70 mL/min (50-200); Creatinine,Serum 1.10 mg/dl (0.66-1.25); Estimated Glomerular Filt Rate 68 ml/min (>60); GFR (African American) 82 ML/MIN (>60); Globulin 3.8 g/dL (1.3-3.2); Glucose 100 mg/dl (74-100); Total Protein,Serum 7.0 g/dl (6.3-8.2)
[2025-04-30 06:37] LABS: Magnesium 2.1 mg/dl (1.6-2.3)
[2025-04-30] MEDS: LEVOTHYROXINE 25MCG (0.025MG) TAB 37.5 MCG PO (06:38)
[2025-04-30] MEDS: CLOPIDOGREL 75MG TAB 75 MG PO (09:25)
[2025-04-30] MEDS: ASPIRIN EC 81MG TABLET 81 MG PO (09:25)
[2025-04-30] MEDS: PANTOPRAZOLE 40MG TABLET 40 MG PO (09:31)
[2025-04-30] MEDS: HYDROCODONE/APAP 5/325 MG TABLET 2 TAB PO (09:31)
--- NOTE | 2025-04-30 12:24 | EXP.DC.SUM ---
General Admission date:: 04/29/25 HPI HPI HPI: Jasmeet Carter is a 64-year-old male with a medical history significant for extensive CAD presented for an outpatient peripheral revascularization and underwent balloon angioplasty for left lower extremity peripheral disease. Patient tolerated procedure well. Discussed with Dr. Tovar's team, he will be admitted overnight for monitoring for bleeding. On my evaluation, patient states he is having low back pain and left lower quadrant abdominal pain. He states this started this morning. Denies chest pain, shortness of breath, nausea/vomiting, fever/chills, diarrhea, constipation. WBC 13.4 but otherwise CBC, CMP relatively unremarkable. Hospital Course Hospital Course Hospital Course: Jasmeet Carter is a 64-year-old male with a medical history significant for extensive CAD presented for an outpatient peripheral revascularization and underwent balloon angioplasty for left lower extremity peripheral disease. Patient tolerated procedure well. Discussed with Dr. Tovar's team, he will be admitted overnight for monitoring for bleeding. On my evaluation, patient states he is having low back pain and left lower quadrant abdominal pain. He states this started this morning. Denies chest pain, shortness of breath, nausea/vomiting, fever/chills, diarrhea, constipation. WBC 13.4 but otherwise CBC, CMP relatively unremarkable. #PAD ? S/p peripheral revascularization of severe left SFA stenosis with CRUZ x 1 on 04/29/2025. Patient tolerated procedure well. ? Continue home aspirin 81 mg, rivaroxaban 2.5 mg twice daily, rosuvastatin 40 mg. ? No acute events overnight, no signs of bleeding or hematoma. Kidney function stable. ? Follow-up with cardiology within 2 weeks. #Left lower quadrant abdominal pain ? Endorsed left lower quadrant abdominal pain after procedure, CT abdomen/pelvis without acute findings. Resolved on day of discharge. #GERD ? Continue home PPI. #Hypothyroidism ? Continue home levothyroxine 37.5 mcg. TSH normal. Exam Data for Last 24 hours Vital signs and Labs for Last 24 Hours: Temp Pulse Resp BP Pulse Ox O2 Del Method FiO2 98 F 55 L 16 144/73 H 99 Room Air 100 04/30/25 12:00 04/30/25 12:00 04/30/25 12:00 04/30/25 12:00 04/30/25 12:00 04/30/25 12:00 04/29/25 11:15 Laboratory Results - last 24 hr 04/30/25 05:31: WBC 11.8 H, RBC 4.84, Hgb 14.5, Hct 44.3, MCV 91.5, MCH 30.0, MCHC 32.7, RDW 12.9, Plt Count 260, MPV 10.3, Neut % (Auto) 59.7, Lymph % (Auto) 28.4, [place] % (Auto) 6.7, Eos % (Auto) 4.1, Baso % (Auto) 0.8, Neut # (Auto) 7.1, Lymph # (Auto) 3.4, [place] # (Auto) 0.8, Eos # (Auto) 0.5 H, Baso # (Auto) 0.1, Sodium 136, Potassium 4.8 D, Chloride 104, Carbon Dioxide 30, Anion Gap 6.8, BUN 14, Creatinine 1.10, Estimated Creat Clear 70, Estimated GFR 68, Est GFR ( Amer) 82, Glucose 100, Calcium 9.1, Magnesium 2.1, Total Bilirubin 0.2, AST 32, ALT 19, Alkaline Phosphatase 49, Total Protein 7.0, Albumin 3.2 L, Globulin 3.8 H, Albumin/Globulin Ratio 0.8 L I & O for Last 24 hours: Intake & Output 04/27/25 04/28/25 04/29/25 04/30/25 23:59 23:59 23:59 23:59 Intake Total 740 / 1220 960 / 960 Output Total 1000 / 1000 0 / 0 Balance -260 / 220 960 / 960 Weight 73.028 kg 71.486 kg Constitutional Constitutional: no acute distress *Routine HEENT Exam Head: Present normocephalic Eye: Present EOMI and PERRL ENT: Present mucous membranes moist *Routine Neck Exam Neck: Present supple; Absent lymphadenopathy *Routine Respiratory Exam Respiratory: Present CTA bilaterally *Routine Cardiovascular Exam Cardiovascular: Present RRR *Routine Abdominal Exam Abdominal: Present soft and normoactive bowel sounds; Absent tenderness *Routine Extremities Exam Extremities: Absent cyanosis, clubbing or edema *Routine Skin Exam Skin: Present warm; Absent rash *Routine Neurological Exam Neurological: Present alert and oriented X3 Results Data Completed and Pending Labs on day of discharge: Labs from last 24 hours 04/30/25 05:31 WBC 11.8 H RBC 4.84 Hgb 14.5 Hct 44.3 MCV 91.5 MCH 30.0 MCHC 32.7 RDW 12.9 Plt Count 260 MPV 10.3 Neut % (Auto) 59.7 Lymph % (Auto) 28.4 [place] % (Auto) 6.7 Eos % (Auto) 4.1 Baso % (Auto) 0.8 Neut # (Auto) 7.1 Lymph # (Auto) 3.4 [place] # (Auto) 0.8 Eos # (Auto) 0.5 H Baso # (Auto) 0.1 Sodium 136 Potassium 4.8 D Chloride 104 Carbon Dioxide 30 Anion Gap 6.8 BUN 14 Creatinine 1.10 Estimated Creat Clear 70 Estimated GFR 68 Est GFR ( Amer) 82 Glucose 100 Calcium 9.1 Magnesium 2.1 Total Bilirubin 0.2 AST 32 ALT 19 Alkaline Phosphatase 49 Total Protein 7.0 Albumin 3.2 L Globulin 3.8 H Albumin/Globulin Ratio 0.8 L DS: Diagnosis Discharge Diagnosis (1) PAD (peripheral artery disease): Status: Chronic Code(s): I73.9 - Peripheral vascular disease, unspecified Meds Home Medications and Allergies Home Medications ?Medication ?Instructions ?Recorded ?Confirmed ?Type rosuvastatin 40 mg tablet 40 mg PO DAILY 90 days #90 tabs 10/17/24 05/12/25 Rx aspirin 81 mg tablet,delayed 81 mg PO DAILY 04/29/25 05/12/25 History release cetirizine 10 mg tablet 10 mg PO DAILY 04/29/25 05/12/25 History famotidine 40 mg tablet 40 mg PO HS 04/29/25 05/12/25 History fenofibrate 50 mg capsule 50 mg PO DAILY 04/29/25 05/12/25 History levothyroxine 25 mcg tablet 37.5 mcg PO DAILY 04/29/25 05/12/25 History meclizine 12.5 mg tablet 12.5 mg PO BIDP PRN Dizziness 04/29/25 05/12/25 History pantoprazole 40 mg tablet,delayed 40 mg PO BID 04/29/25 05/12/25 History release rivaroxaban 2.5 mg tablet (Xarelto) 2.5 mg PO BID 04/29/25 05/12/25 History cyclobenzaprine 7.5 mg tablet 7.5 mg PO TID 05/04/25 05/12/25 History oxycodone 5 mg tablet 5 mg PO QID PRN Moderate Pain 05/06/25 05/12/25 Rx (Scale Score 5-6) #120 tabs New Prescriptions to Start Prescriptions: Allergies Allergy/AdvReac Type Severity Reaction Status Date / Time NSAIDS (Non-Steroidal AdvReac Mild Gastrointestinal Verified 05/12/25 09:06 Anti-Inflamma (NSAIDS Upset (NON-STEROIDAL ANTI-INFLAMMA) Discharge Plan Disposition Patient Disposition: Home, Self-Care Condition: Fair Follow up Plan Follow up with: Dario Tovar MD [Staff Physician, Cardiology] - 05/06/25 2:30 pm Colt Saini MD [Primary Care Provider, Family Practice] - 05/04/25 2:20 pm Prescriptions/Medication Reconciliation: Continued rosuvastatin 40 mg tablet 40 mg PO DAILY 90 Days Qty: 90 4RF cetirizine 10 mg tablet 10 mg PO DAILY famotidine 40 mg tablet 40 mg PO HS meclizine 12.5 mg tablet 12.5 mg PO BIDP PRN (Reason: Dizziness) aspirin 81 mg tablet,delayed release (DR/EC) 81 mg PO DAILY levothyroxine 25 mcg tablet 37.5 mcg PO DAILY pantoprazole 40 mg tablet,delayed release (DR/EC) 40 mg PO BID fenofibrate 50 mg capsule 50 mg PO DAILY rivaroxaban [Xarelto] 2.5 mg tablet 2.5 mg PO BID No Action cyclobenzaprine 7.5 mg tablet 7.5 mg PO TID oxycodone 5 mg tablet 5 mg PO QID PRN (Reason: Moderate Pain (Scale Score 5-6)) Qty: 120 0RF Rx Instructions: increased frequency prescribed since last refill. Ok to fill on 05/07/2025. Problem Reconciliation Problems Reviewed?: Yes Patient Discharge Instructions Patient Instructions: DI for Cardiac Catheterization, DI for Coronary Angioplasty, DI for Peripheral Vascular (Arterial) Disease, DI for Surgical Site Infection Print Language: [place] Providers Primary Care Provider: Colt Saini Admit Provider: Dario Tovar Attending Provider: Kyle Rai
--- NOTE | 2025-05-01 10:18 | SW/DCPLANNER ---
Spoke with patient on the phone. Patient stated that he is doing good. patient stated that he is aware of his upcoming appointments. Patient stated that he has no concerns or questions. Roger Salgado
== END 2025-04-30 13:34 | disposition home or self-care (01) ==
LOC: 2ND 11:13
PROVIDERS: Admitting Provider Internal Medicine; PCP Family Medicine; Visit Provider Student in an Organized Health Care Education/Training Program
DX: I70.212 Atherosclerosis of native arteries of extremities with intermittent claudication, left leg (principal); I25.10 Atherosclerotic heart disease of native coronary artery without angina pectoris; M54.50 Low back pain, unspecified; R10.32 Left lower quadrant pain; F17.210 Nicotine dependence, cigarettes, uncomplicated; E78.5 Hyperlipidemia, unspecified; K21.9 Gastro-esophageal reflux disease without esophagitis; E03.9 Hypothyroidism, unspecified; Z79.01 Long term (current) use of anticoagulants; Z79.891 Long term (current) use of opiate analgesic; Z82.49 Family history of ischemic heart disease and other diseases of the circulatory system; Z79.899 Other long term (current) drug therapy; Z79.82 Long term (current) use of aspirin; Z79.890 Hormone replacement therapy; Z88.6 Allergy status to analgesic agent; Z95.828 Presence of other vascular implants and grafts
CPT/HCPCS: 36247; 36415; 37265; 74177; 75630; 80048; 80053; 83735; 85007; 85025; 85027; 85347; 96360; 96361; C1725; C1766; C1769; C1894; G0378; J1200; J1644; J3010; J7040; Q9966; Q9967

== ENCOUNTER 2025-06-04 08:09 | Day surgery (SDC) | payer OTHER, SELFPAY ==
[2025-05-27 11:21] VITALS: BMI 24.3
--- NOTE | 2025-05-31 11:00 | EXP.HP ---
History of Present Illness *Admission Date: 06/04/25 *History of present illness: Mr. Carter is a 64-year-old gentleman who is here for diagnostic EGD. He does have a long history of functional dyspepsia and has had belching, bloating, fullness and early satiety. He also has frequent GERD and heartburn. He reports dysphagia and globus sensation with frequent clearance of the throat. He did have an EGD with md in January 2020 and had cricopharyngeal spasm, nonerosive GERD and 2 to 3 cm hiatal hernia. He also had some reactive gastropathy. The patient had an EGD with Gus Garcia MD in May 2023. The examination is deemed medically necessary for diagnostic EGD. The patient has been seen, interviewed and examined prior to the procedure by both myself and the anesthesia provider. [facility] Disclaimer: The information contained in this section may have been updated after the patient was seen, as this information can be updated by other users. 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 Chronic sinusitis Bilateral tinnitus Facial trauma Critical limb ischemia of right lower extremity History of gastroesophageal reflux (GERD) History of peripheral arterial disease Neuropathy Hyperlipidemia (~08/21/17) Vitamin D deficiency (~08/21/17) Hypothyroidism (~08/21/17) Surgical History History of angioplasty of peripheral vessel left superficial femoral, apr 2025 History of cardiac cath History of colonoscopy History of knee surgery History of intravascular stent placement History of skin graft History of facial fracture repair Family History Other Family history of cardiomyopathy Family history of myocardial infarction Social History (Updated 06/04/25 @ 09:07 by Yuliet Almazan RN) Smoking Status: Current every day smoker tobacco type: cigarettes packs per day: 2 pack-years: 51 second hand exposure: No alcohol intake: former substance use type: denies use current occupational status: other Travel in the last 8 weeks?: None household members: spouse and family housing: house lives independently: No marital status: education level: high school service: No residential: No 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 Have you lived/traveled outside [place] in past 30 days?: No Contact w/someone who lives/traveled outside US past 30 days?: No Exposure to someone with infectious disease in past 14 days?: No Do you have a fever (greater than 100.4 F or 38 C)?: No Have you tested positive for COVID-19?: No Exposed to someone with COVID-19 in past 14 days?: No Do you have a sore throat?: No Do you have a cough?: No Do you have any weakness?: No Are you experiencing any nausea/vomitting?: No Do you have any diarrhea?: No Are you experiencing any unusual bleeding?: No Do you have any muscle aches/pain?: No Do you have any abdominal pain?: No Are you experiencing loss of taste or smell?: No Other Medical History Have you received the Flu Vaccine for this season: No Have you received the Pneumonia Vaccine: No Review of Systems Review of Systems Review of systems (narrative): Negative *Cardiovascular Comments: Negative *Gastrointestinal Comments: Negative *Genitourinary Comments: Negative *Musculoskeletal Comments: Negative *Neurologic Comments: Negative Meds Home Medications and Allergies Home Medications ?Medication ?Instructions ?Recorded ?Confirmed ?Type rosuvastatin 40 mg tablet 40 mg PO DAILY 90 days #90 tabs 10/17/24 06/04/25 Rx aspirin 81 mg tablet,delayed 81 mg PO DAILY 04/29/25 06/04/25 History release cetirizine 10 mg tablet 10 mg PO DAILY 04/29/25 06/04/25 History famotidine 40 mg tablet 40 mg PO HS 04/29/25 06/04/25 History fenofibrate 50 mg capsule 50 mg PO DAILY 04/29/25 06/04/25 History levothyroxine 25 mcg tablet 37.5 mcg PO DAILY 04/29/25 06/04/25 History meclizine 12.5 mg tablet 12.5 mg PO BIDP PRN Dizziness 04/29/25 06/04/25 History pantoprazole 40 mg tablet,delayed 40 mg PO BID 04/29/25 06/04/25 History release rivaroxaban 2.5 mg tablet (Xarelto) 2.5 mg PO BID 04/29/25 06/04/25 History cyclobenzaprine 7.5 mg tablet 7.5 mg PO TID 05/04/25 06/04/25 History oxycodone 5 mg tablet 5 mg PO QID PRN Moderate Pain 06/01/25 06/04/25 Rx (Scale Score 5-6) #120 tabs New Prescriptions to Start Prescriptions: Allergies Allergy/AdvReac Type Severity Reaction Status Date / Time NSAIDS (Non-Steroidal AdvReac Mild Gastrointestinal Verified 06/04/25 09:02 Anti-Inflamma (NSAIDS Upset (NON-STEROIDAL ANTI-INFLAMMA) Exam *Routine HEENT Exam Head: Present normocephalic Eye: Present EOMI and PERRL ENT: Present mucous membranes moist *Routine Neck Exam Neck: Present supple *Routine Respiratory Exam Respiratory: Present CTA bilaterally *Routine Cardiovascular Exam Cardiovascular: Present RRR *Routine Abdominal Exam Abdominal: Present soft and normoactive bowel sounds; Absent tenderness *Routine Rectal Exam Rectal:: deferred *Routine Genitalia Exam Genitalia:: deferred *Routine Extremities Exam Extremities: Absent cyanosis, clubbing or edema *Routine Skin Exam Skin: Present warm; Absent rash *Routine Neurological Exam Neurological: Present alert and oriented X3 Assessment and Plan *Assessment and plan (1) Functional dyspepsia: Status: Acute Category: Medical Code(s): K30 - Functional dyspepsia (2) GERD (gastroesophageal reflux disease): Status: Acute Category: Medical Code(s): K21.9 - Gastro-esophageal reflux disease without esophagitis (3) Dysphagia: Status: Acute Category: Medical Code(s): R13.10 - Dysphagia, unspecified Plan A/P: 1. Dysphagia with chronic GERD, dyspepsia, bloating and belching is the preprocedural diagnosis. The patient will be anesthetized/sedated using MAC sedation. The patient has been seen and examined. Cardiac and lung assessment prior to the examination is stable. Proceed with planned diagnostic EGD.
--- NOTE | 2025-06-04 06:47 | HMH.PROCNOTE ---
[facility] Procedure Note Date: 06/04/25 Time: 11:01 Procedure Note:: Upper Endoscopy Procedure Report: Esophagogastroduodenoscopy with cold biopsies and TTS balloon dilation Endoscopost: Ron Grove II, MD Referring Physician: Colt Saini MD Date of Procedure: June 04, 2025 Equipment: Olympus GIF-1100 standard upper endoscope Sedation: MAC sedation Indications: Mr. Carter is a 64-year-old gentleman who is here for diagnostic EGD. He does have a long history of functional dyspepsia and has had belching, bloating, fullness and early satiety. He also has frequent GERD and heartburn. He reports dysphagia and globus sensation with frequent clearance of the throat. He did have an EGD with pr in January 2020 and had cricopharyngeal spasm, nonerosive GERD and 2 to 3 cm hiatal hernia. He also had some reactive gastropathy. The patient had an EGD with Gus Garcia MD in May 2023. The examination is deemed medically necessary for diagnostic EGD. Procedure: Prior to the procedure, a history and physical exam was performed, and patient's medications and allergies were reviewed. The risks, benefits and alternatives of the sedation and procedure were discussed with the patient. All questions were answered and informed consent was obtained. The patient was brought to the procedure room. Patient identification and proposed procedure were verified by the physician and the nurse. The patient was placed in a left lateral decubitus position and the scope was passed under direct vision. Throughout the procedure, the patient's blood pressure, pulse, and oxygen saturations were monitored continuously. The upper GI endoscopy was accomplished without difficulty. The patient tolerated the procedure well. Findings: The scope was passed directly into the upper esophagus and advanced to the third portion of the duodenum. The post bulbar duodenum, ampulla and duodenal bulb were normal with normal mucosa and conniventes. 2 cold biopsies were taken from the second portion of the duodenum for the disaccharidase assay. The scope was withdrawn through a normal duodenal bulb and pylorus into the stomach. There was moderate bile reflux with moderate linear reactive gastropathy of the antrum. The body and fundus were normal. Upon retroflexion there was a small 2 cm hiatal hernia. Cold biopsies were taken from the antrum. The scope was then withdrawn into the esophagus. There was no evidence of reflux esophagitis or Roger's. There were tertiary contractions and evidence of moderate esophageal dysmotility. The entire esophagus was dilated to 60 Upper Sorbian/20 mm with a TTS hydrostatic balloon. There was minimal resistance. The remainder of the esophageal mucosa was normal. Impression: 1. Nonerosive GERD with moderate esophageal dysmotility and small 2 cm hiatal hernia 2. Bile reflux with moderate linear reactive gastropathy Plan: I will follow-up the biopsies and disaccharidase assay. I am going to place the patient on metoclopramide. I would also recommend that we treat his obstipation/opioid-induced constipation.
[2025-06-04 09:06] VITALS: BP 142/80; PULSE 52; RESP 16; TEMP 36.2; O2SAT 100; BMI 24.3
[2025-06-04] MEDS: LACTATED RINGERS 1000ML 1,000 ML 50 ML IV (09:19)
--- NOTE | 2025-06-04 09:30 | EXP.ANES.CKL ---
[facility] Disclaimer: The information contained in this section may have been updated after the patient was seen, as this information can be updated by other users. Medical History Lymphocytosis Dysphagia Lung nodule follow-up CT due in August 2025 Chronic, continuous use of opioids group home current use of anticoagulant Low back pain Alcohol use disorder in remission Atypical lymphocytosis Cigarette smoker current and greater than 60 pack years. Chronic sinusitis Bilateral tinnitus Facial trauma Critical limb ischemia of right lower extremity History of gastroesophageal reflux (GERD) History of peripheral arterial disease Neuropathy Hyperlipidemia (~08/21/17) Vitamin D deficiency (~08/21/17) Hypothyroidism (~08/21/17) Surgical History History of angioplasty of peripheral vessel left superficial femoral, apr 2025 History of cardiac cath History of colonoscopy History of knee surgery History of intravascular stent placement History of skin graft History of facial fracture repair Family History Other Family history of cardiomyopathy Family history of myocardial infarction Social History (Updated 06/04/25 @ 09:07 by Yuliet Almazan RN) Smoking Status: Current every day smoker tobacco type: cigarettes packs per day: 2 pack-years: 51 second hand exposure: No alcohol intake: former substance use type: denies use current occupational status: other Travel in the last 8 weeks?: None household members: spouse and family housing: house lives independently: No marital status: education level: high school service: No correction: No 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 Have you lived/traveled outside [place] in past 30 days?: No Contact w/someone who lives/traveled outside [place] past 30 days?: No Exposure to someone with infectious disease in past 14 days?: No Do you have a fever (greater than 100.4 F or 38 C)?: No Have you tested positive for COVID-19?: No Exposed to someone with COVID-19 in past 14 days?: No Do you have a sore throat?: No Do you have a cough?: No Do you have any weakness?: No Are you experiencing any nausea/vomitting?: No Do you have any diarrhea?: No Are you experiencing any unusual bleeding?: No Do you have any muscle aches/pain?: No Do you have any abdominal pain?: No Are you experiencing loss of taste or smell?: No [facility] Anesthesia Checklist Patient Identification Patient Identification: Arm Band and Verbal (Name & ) Structural Data Admitted From: Home Planned Operative Procedure/s: EGD Consent for Planned Operative Procedure(s) Verified: Yes Verified Documents: Surgical Consent NPO Status Verified Time NPO: 00:00 Additional verifications Anesthesia Reactions: No Hx Blood Transfusions: No Blood Transfusion Reaction: No Airway Assessment Mallampati Score:: Class II C-Spine Mobility Assessed: Yes TMJ Mobility Assessed: Yes Dentition: Edentulous Neurological Assessment Level of Consciousness: Awake, Alert and Appropriate Hx Seizures: No Numbness or tingling in extremities: No Anesthesia Plan Anesthesia Risk discussed: Yes Anesthesia Plan: Verified ASA Class: III Anesthesia Type: MAC
[2025-06-04 11:05] VITALS: BP 149/83; PULSE 61; RESP 18; TEMP 36.1; O2SAT 97
[2025-06-04 11:15] VITALS: BP 119/69; PULSE 60; O2SAT 97
[2025-06-04 11:25] VITALS: BP 116/71; PULSE 50; O2SAT 98
[2025-06-04 11:35] VITALS: BP 134/75; PULSE 56; O2SAT 99
[2025-06-08 19:10] LABS: Interpretation Notes (.); Lactase 41.38 (>/= 14.0); Maltase 212.81 (>/= 110.0); Palatinase 17.73 (>/= 8.5); Reference Notes (.); Sucrase 89.51 (>/= 25.0)
== END 2025-06-04 11:35 | disposition home or self-care (01) ==
PROVIDERS: PCP Family Medicine; Visit Provider Internal Medicine Gastroenterology
PROC: 0DJ08ZZ Inspection of Upper Intestinal Tract, Via Natural or Artificial Opening Endoscopic (ICD-10-PCS; CPT 43239; principal; 2025-06-04 10:00)
DX: K44.9 Diaphragmatic hernia without obstruction or gangrene (principal); K31.89 Other diseases of stomach and duodenum; K30 Functional dyspepsia; K21.9 Gastro-esophageal reflux disease without esophagitis; D72.820 Lymphocytosis (symptomatic); R13.10 Dysphagia, unspecified; Z79.891 Long term (current) use of opiate analgesic; Z79.01 Long term (current) use of anticoagulants; M54.50 Low back pain, unspecified; F17.210 Nicotine dependence, cigarettes, uncomplicated; E55.9 Vitamin D deficiency, unspecified; E78.5 Hyperlipidemia, unspecified; E03.9 Hypothyroidism, unspecified; G62.9 Polyneuropathy, unspecified; Z79.899 Other long term (current) drug therapy; Z79.82 Long term (current) use of aspirin; Z88.6 Allergy status to analgesic agent
CPT/HCPCS: 43239; 43249; 82657; C1726; J2003; J2704; J7120